=== PATIENT | male | born 1950 | race Caucasian/White ===

== ENCOUNTER 2017-09-11 17:21 | Observation (INO) | payer MEDICARE, OTHER ==
[~2017-09-11] VITALS: Ht 180.3 cm; Wt 86.7 kg
[~2017-09-11 17:21] MED LIST: ASPIRIN EC81 MG PO; BACLOFEN20 MG PO; CARAFATE1 GM PO; CARISOPRODOL350 MG PO; CLARITIN-D 241 EACH PO; COLACE100 MG PO; COMBIVENT INH14.7 GM INH; COUMADIN5 MG PO; CRESTOR20 MG PO; EFFIENT10 MG PO; ELIQUIS PO; ELIQUS; FENTANYL TD; FISH OIL + VIT1 EACH; FISH OIL 1,0001 EAC2 PO; FLOMAX0.4 MG PO; FOLIC ACID1 MG PO; IMDUR60 MG PO; KLONOPIN1 MG PO; LASIX40 MG PO; LEVAQUIN500 MG PO; LIPITOR80 MG PO; LISINOPRIL2.5 MG PO; LISINOPRIL5 MG PO; METFORMIN HCL500 M1 PO; METFORMIN HCL500 MG PO; MULTIVITAMINS1 EAC7 PO; NEURONTIN300 MG PO; NITROSTAT0.4 MG SL; OMEPRAZOLE40 MG PO; PAXIL20 MG PO; PERCOCET 10-651 EACH PO; PREDNISONE5 MG PO; PRILOSEC10 MG PO; RANEXA500 MG PO; SYMBICORT 80-10.2 GM INH; TEMAZEPAM15 MG PO; TOPROL XL25 MG PO; TOPROL XL50 MG PO; ZYRTEC10 M3 PO
[2017-09-11] MEDS ORDERED: METHYLPREDNISOLONE SOD SUCC 125 MG/2ML VIAL IV ONE (18:15)
[2017-09-11] MEDS ORDERED: LEVALBUTEROL HCL SOLN NEBU 1.25 MG/3 ML NEB INH ONE (18:15)
[2017-09-11 18:39] LABS: BASOPHILS % 0.2 % (0.0-1.0); EOSINOPHILS % 0.2 % (0.0-6.0); HEMATOCRIT 37.6 % (38.2-49.6); HEMOGLOBIN 11.7 g/dL (14.0-18.0); LYMPHOCYTES # (AUTO) 0.5 (1.0-3.2); LYMPHOCYTES % 6.3 % (18.0-39.1); MEAN CORPUSCULAR HEMOGLOBIN 26.3 pg (28-32); MEAN CORPUSCULAR HGB CONC 31.1 g/dL (31-35); MEAN CORPUSCULAR VOLUME 84.5 fL (81-99); MONOCYTES # (AUTO) 1.1 (0.2-0.8); NEUTROPHILS # (AUTO) 6.4 (2.1-6.9); NEUTROPHILS % 78.6 % (38.7-80.0); PLATELET COUNT 194 x10e3/uL (140-360); RED BLOOD COUNT 4.45 x10e6/uL (4.3-5.7); RED CELL DISTRIBUTION WIDTH 19.8 % (11.7-14.4)
[2017-09-11] MEDS ORDERED: SPIRIVA18 MCG INH (18:42)
[2017-09-11] MEDS ORDERED: NEXIUM20 MG (18:42)
--- NOTE | 2017-09-11 18:58 | Diagnostic Imaging Report ---
PROCEDURE: A single AP view of the chest. COMPARISON: Chest radiograph 06/22/2017 INDICATIONS: CHEST CONGESTION FINDINGS: Lines/tubes: None. Lungs: The lungs are well inflated. Mild central pulmonary venous congestion. Mild bibasilar atelectasis. Pleura: There is no pleural effusion or pneumothorax. Heart and mediastinum: The heart and the mediastinum are unremarkable. Bones: No acute bony abnormality. Median sternotomy wires. IMPRESSION: Central pulmonary venous congestion. Mild bibasilar atelectasis. Otherwise, no acute cardiopulmonary disease. Dictated by: James Olvera M.D. on 09/11/2017 at 19:04 Electronically approved by: James Olvera M.D. on 09/11/2017 at 19:04
[2017-09-11 19:01] LABS: ALANINE AMINOTRANSFERASE 26 IU/L (0-55); ALBUMIN/GLOBULIN RATIO 0.9 (0.8-2.0); ALKALINE PHOSPHATASE 151 IU/L (40-150); ANION GAP 13.2 mmol/L (8-16); BLOOD UREA NITROGEN 16 mg/dL (7-26); BUN/CREATININE RATIO 18 (6-25); CALCIUM 8.6 mg/dL (8.4-10.2); CARBON DIOXIDE 25 mmol/L (22-29); CHLORIDE 105 mmol/L (98-107); CREATININE, SERUM 0.88 mg/dL (0.72-1.25); EST GLOMERULAR FILTRATION RATE > 60 ML/MIN (60-); GLUCOSE 95 mg/dL (74-118); POTASSIUM 4.2 mmol/L (3.5-5.1); SODIUM 139 mmol/L (136-145)
[2017-09-11 19:18] LABS: LYMPHOCYTES % (MANUAL) 8 % (19-48); MONOCYTES % (MANUAL) 7 % (3.4-9.0); MYELOCYTES % (MANUAL) 1 % (0-0); NEUTROPHILS % (MANUAL) 84 % (40-74)
[2017-09-11 19:21] LABS: ANISOCYTOSIS SLIG; POIKILOCYTOSIS SLIGHT
[2017-09-11 19:22] LABS: PLATELET ESTIMATE ADEQUATE; PLATELET MORPHOLOGY COMMENT FEW GIANT; SCHISTOCYTES FEW
[2017-09-11] MEDS ORDERED: ACETAMINOPHEN PO PRN (19:45)
[2017-09-11] MEDS ORDERED: OXYCODONE PO PRN (19:45)
[2017-09-11] MEDS ORDERED: CEFTRIAXONE SOD 1 GM VIAL IV SCH (19:45)
[2017-09-11] MEDS ORDERED: [UNRECOGNIZED DRUG - OTHER] PO PRN (19:45)
[2017-09-11] MEDS ORDERED: SODIUM CHLORIDE FLUSH 10 ML SYR INJ PRN (19:45)
[2017-09-11] MEDS ORDERED: DEXTROSE 50% SYRINGE 50 ML IV PRN (19:45)
[2017-09-11] MEDS: IPRATROPIUM BROMIDE 0.02% 2.5 ML NEB NEB SCH (20:00)
[2017-09-11 20:13] LABS: CREATINE KINASE MB 1.7 ng/mL (0.00-5.00); TROPONIN I 0.55 ng/mL (0-0.300)
[2017-09-11] MEDS: CEFTRIAXONE SOD 1 GM/NS 50 ML 50 ML IV SCH (20:14)
[2017-09-11] MEDS: OSELTAMIVIR PHOSPHATE 75 MG CAP PO SCH (20:14)
[2017-09-11] MEDS ORDERED: ACETAMINOPHEN 325 MG TAB PO PRN (20:15)
[2017-09-11] MEDS: LISINOPRIL 2.5 MG TAB PO SCH (20:21)
[2017-09-11] MEDS ORDERED: GABAPENTIN 300 MG CAP PO SCH (21:00)
[2017-09-11 21:37] VITALS: BP 135/95
[2017-09-11] MEDS: GABAPENTIN 400 MG CAP PO SCH (21:58)
[2017-09-11] MEDS: INSULIN REGULAR, HUMAN 100 UNIT/1 ML 3ML VIAL SQ SCH (21:58)
[2017-09-11] MEDS: LORATADINE 10 MG TAB PO SCH (21:58)
[2017-09-11 23:32] VITALS: BP 135/95
[2017-09-11 23:58] VITALS: BP 133/79
[2017-09-12] MEDS: IPRATROPIUM BROMIDE 0.02% 2.5 ML NEB NEB SCH ×4 (03:04→19:49)
[2017-09-12] MEDS: LEVALBUTEROL HCL SOLN NEBU 1.25 MG/3 ML NEB INH SCH ×4 (03:04→19:49)
[2017-09-12 04:04] VITALS: BP 136/52
[2017-09-12 06:27] LABS: BASOPHILS % 0.2 % (0.0-1.0); HEMATOCRIT 35.6 % (38.2-49.6); HEMOGLOBIN 10.9 g/dL (14.0-18.0); LYMPHOCYTES # (AUTO) 0.3 (1.0-3.2); LYMPHOCYTES % 5.2 % (18.0-39.1); MEAN CORPUSCULAR HGB CONC 30.6 g/dL (31-35); MEAN CORPUSCULAR VOLUME 84.8 fL (81-99); MONOCYTES # (AUTO) 0.6 (0.2-0.8); MONOCYTES % 8.7 % (4.4-11.3); NEUTROPHILS # (AUTO) 5.6 (2.1-6.9); NEUTROPHILS % 85.1 % (38.7-80.0); PLATELET COUNT 180 x10e3/uL (140-360); RED CELL DISTRIBUTION WIDTH 19.9 % (11.7-14.4)
[2017-09-12 06:46] LABS: ANION GAP 12.3 mmol/L (8-16); BLOOD UREA NITROGEN 15 mg/dL (7-26); BUN/CREATININE RATIO 18 (6-25); CALCIUM 8.6 mg/dL (8.4-10.2); CARBON DIOXIDE 26 mmol/L (22-29); CHLORIDE 107 mmol/L (98-107); CREATINE KINASE 59 IU/L (30-200); CREATININE, SERUM 0.82 mg/dL (0.72-1.25); EST GLOMERULAR FILTRATION RATE > 60 ML/MIN (60-); GLUCOSE 202 mg/dL (74-118); POTASSIUM 4.3 mmol/L (3.5-5.1); SODIUM 141 mmol/L (136-145)
[2017-09-12] MEDS: INSULIN REGULAR, HUMAN 100 UNIT/1 ML 3ML VIAL SQ SCH ×4 (07:30→20:47)
[2017-09-12 07:31] LABS: TROPONIN I 0.315 ng/mL (0-0.300)
[2017-09-12 07:51] VITALS: BP 132/75
[2017-09-12] MEDS: TIOTROPIUM 18 MCG INH POWDER INH SCH (08:00)
[2017-09-12] MEDS: DOCUSATE SODIUM 100 MG CAP PO SCH (08:26)
[2017-09-12] MEDS: TAMSULOSIN HCL 0.4 MG CAP PO SCH (08:26)
[2017-09-12] MEDS: OMEGA 3 POLYUNSAT FATTY ACIDS 1000 MG SOFTGEL PO SCH (08:26)
[2017-09-12] MEDS: APIXABAN 5 MG TABLET PO SCH ×2 (08:26→16:59)
[2017-09-12] MEDS: MULTIVITAMINS/MINERALS TAB PO SCH (08:26)
[2017-09-12] MEDS: FOLIC ACID 1 MG TAB PO SCH (08:26)
[2017-09-12] MEDS: FUROSEMIDE 40 MG TAB PO SCH (08:26)
[2017-09-12] MEDS: ASPIRIN 81 MG ENTERIC COATED PO SCH (08:26)
[2017-09-12] MEDS: PREDNISONE 5 MG TAB PO SCH ×2 (08:27→16:59)
[2017-09-12] MEDS: LISINOPRIL 2.5 MG TAB PO SCH (08:27)
[2017-09-12] MEDS: OSELTAMIVIR PHOSPHATE 75 MG CAP PO SCH ×2 (08:27→16:59)
[2017-09-12] MEDS: PANTOPRAZOLE SOD 40 MG TABEC PO SCH (08:27)
[2017-09-12] MEDS ORDERED: NON-FORMULARY MEDICATION ([Eliquis] 5 MG) PO SCH (09:00)
[2017-09-12] MEDS ORDERED: NON-FORMULARY MEDICATION (Atorvastatin Calcium (Lipitor) 80 MG) PO SCH (09:00)
[2017-09-12] MEDS ORDERED: NON-FORMULARY MEDICATION (Omega-3 Fatty Acids/Fish Oil (Fish Oil 1,000 Mg Capsule) 1 CAP) PO SCH (09:00)
[2017-09-12] MEDS ORDERED: NITROGLYCERIN 0.4 MG SUBL SL PRN (09:45)
--- NOTE | 2017-09-12 10:22 | History and Physical ---
He is a 67-year-old male patient of mine presented to the emergency room with a complaint of shortness of breath, cough, fevers and wheezing. HISTORY OF PRESENT ILLNESS: Mr. Devon Duncan is a 67-year-old male patient with significant medical problems. The patient had presented to the emergency room with a complaint of shortness of breath, wheezing and dyspnea and chest congestion. PAST MEDICAL HISTORY: Patient has a significant medical history of COPD and diabetes mellitus, coronary artery disease, hypertension, heart disease, pneumonia and chronic back pain and back problems. ALLERGIES: . REVIEW OF SYSTEMS: Cough, wheezing, shortness of breath, and weakness. MEDICATIONS: See from the list. SOCIAL HISTORY: Patient is smoker and denies using alcohol. FAMILY HISTORY: Diabetes mellitus, hypertension. PHYSICAL EXAMINATION GENERAL: He is an elderly patient lying in bed. Not in any acute distress. VITAL SIGNS: Temperature 98.1, pulse rate 96, blood pressure 132/75, respirations 22, O2 sat 98%. HEENT EXAMINATION: Normocephalic. Atraumatic. NECK: No JVD. No lymphadenopathy. LUNGS: There is rhonchi present. HEART: S1 and S2 regularly irregular. Systolic murmur present. ABDOMEN: Soft. Bowel sounds present. NEURO EXAMINATION: No focal neurological deficits. LABORATORY EXAMINATION: Patient has a and a troponin was elevated. ADMITTING PATIENT DIAGNOSES 1. Chronic obstructive pulmonary disease exacerbation complicated by influenza. 2. History of congestive heart failure. 3. Diabetes mellitus. 4. Atrial fibrillation. 5. Chronic back pain. 6. Herniated disc. PLAN: Patient admitted with the above diagnosis. Will treat patient with IV Rocephin and Tamiflu. Will obtain pulmonary and cardiology consultations. Will give patient nebulizer treatment and treatment. Job#: [id number] HIKNLE
[2017-09-12 11:33] VITALS: BP 126/58
[2017-09-12] MEDS: METFORMIN HCL 500 MG TAB PO SCH (12:03)
[2017-09-12 15:28] LABS: CREATINE KINASE MB 1.5 ng/mL (0.00-5.00); TROPONIN I 0.322 ng/mL (0-0.300)
[2017-09-12 15:42] VITALS: BP 99/58
--- NOTE | 2017-09-12 16:17 | Consultation ---
DATE OF CONSULTATION: September 12, 2017 CARDIOLOGY CONSULTATION REQUESTING PHYSICIAN: Dr. Hali Cadena. REASON FOR CONSULTATION: Elevated troponin. HISTORY OF PRESENT ILLNESS: This is a 67-year-old male that presented with shortness of breath and wheezing. According to the patient, for the last 2 days he has been having constant shortness of breath, wheezing, and decreased activity. He saw his PCP recently, was given some steroids and antibiotic. He stated that today the shortness of breath got worse that he decided to come into the emergency room for evaluation. In the ER he was found out to be influenza A positive, and he was admitted. He has a history of CAD, open heart surgery, and multiple stent placement in the past. He also has a history of AFib and was anticoagulated with Eliquis. He denies any chest pain, any palpitation, any dizziness, diaphoresis or headache. His troponin was borderline, and EKG showed non-ST abnormalities. PAST MEDICAL HISTORY: Of CAD, AFib, hypertension, CHF, diabetes, chronic back pain, obesity, COPD. PAST SURGICAL HISTORY: Of open heart surgery and cardiac stents x4 and multiple back surgeries. FAMILY HISTORY: Positive with CAD. Daughter with flu-like symptoms also. SOCIAL HISTORY: He quit smoking and drinking 25 years ago, and he restarted again recently. MEDICATIONS: See med list. ALLERGIES: HE IS ALLERGIC TO ALBUTEROL. REVIEW OF SYSTEMS: Negative except those mentioned above. He is positive for shortness of breath and influenza A. PHYSICAL EXAMINATION VITAL SIGNS: Temperature 98, heart rate 89, blood pressure 126/58, respiration 18, oxygen saturation 94% on room air. GENERAL: He is awake, alert, and oriented x3. HEENT: Mucous membrane moist. NECK: Supple. LUNGS: Bilaterally with decreased breath sounds. CARDIOVASCULAR: S1/S2 present but irregular. ABDOMEN: Soft and obese. NEUROLOGICAL: Intact. EXTREMITIES: With trace edema. LABS: Sodium 141, potassium 4.3, chloride 107, CO2 26, BUN 15, creatinine 0.82, glucose 202. White blood cell 6.58, hemoglobin 10.9, hematocrit 35.6, platelet 180. IMPRESSION 1. Flu positive. 2. Coronary artery disease with coronary artery bypass graft and stents. 3. Congestive heart failure. 4. Borderline troponin. 5. Hypotension. 6. Diabetes. 7. Chronic obstructive pulmonary disease exacerbation. ASSESSMENT/PLAN: No complaint of chest pain. Borderline troponin could be due to the inflammatory changes. Will continue home medication. Will get an echo to assess the LV and the valve function. 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 Further cardiac workup pending clinical course. Dictated by: Lis Jensen NP Job#: [id number] EV
[2017-09-12] MEDS: NYSTATIN SUSPENSION 5 ML UDC PO SCH ×2 (17:30→20:47)
[2017-09-12] MEDS ORDERED: LOPERAMIDE HCL 2 MG CAP PO PRN (18:00)
--- NOTE | 2017-09-12 18:17 | Consultation ---
DATE OF CONSULTATION: PULMONARY CONSULTATION REQUESTING PHYSICIAN: Dr. Paramjit Cadena REASON FOR CONSULTATION: COPD. HISTORY OF PRESENT ILLNESS: Mr. Duncan is a 67-year-old man with a history of COPD, hypertension, BPH, coronary artery disease, multiple back surgeries, who presented to the hospital with complaint of shortness of breath. He states that he had been feeling more short of breath over the past week, particularly worsening over the past few days. He has been coughing with a minimally productive cough and has been having aching pain throughout his body, particularly in his back. He lives alone and denies any other sick contacts. He has had subjective fever and has had a poor appetite. Regarding his COPD, he typically uses Breo, Spiriva and Xopenex on an as-needed basis. He stopped albuterol in the past due to an episode of atrial fibrillation. He feels the Xopenex helps his breathing when he is having coughing and wheezing. He has oxygen at home, but has not been using it recently. He has been on prednisone on a chronic basis, currently on 5 mg twice daily. He does not follow regularly with a entry level chemist. He has a previous history of smoking and quit about 25 years ago, but he recently started smoking again 4 months ago. He is smoking about 1/2 pack of cigarettes on a daily basis. In the emergency department, he was found to be in respiratory distress and was given Solu-Medrol as well as Xopenex treatment. He had influenza A testing that was found to be positive. He reports he had an influenza vaccination approximately 1 month ago. REVIEW OF SYSTEMS: Positive for cough, shortness of breath, wheezing, subjective fever, fatigue, decreased appetite, weight loss, leg swelling. Otherwise, a 12-point review of systems was conducted and was found to be negative. PAST MEDICAL HISTORY 1. Hypertension. 2. Coronary artery disease. 3. Atrial fibrillation. 4. COPD. 5. Type-2 diabetes. 6. Gastroesophageal reflux. PAST SURGICAL HISTORY 1. Multiple back surgeries. 2. Coronary artery bypass surgery. FAMILY HISTORY: He reports history of lung disease in his father, who he believes had some type of occupational lung disease. SOCIAL HISTORY: He has a history of smoking for approximately 30 years, quit 25 years ago, but most recently started smoking again just 4 months ago. He is smoking about 1/2 pack of cigarettes daily. ALLERGIES: HE IS ALLERGIC TO ALBUTEROL DUE TO THE EPISODE OF ATRIAL FIBRILLATION. CURRENT MEDICATIONS: Include Eliquis, prednisone, Tamiflu, Atrovent, Xopenex, metformin, lisinopril, pantoprazole, tamsulosin, Lasix, folic acid, aspirin, Spiriva, gabapentin, loratadine, Tylenol, ceftriaxone, docusate, Percocet. PHYSICAL EXAMINATION VITAL SIGNS: Temperature 98.1 degrees Fahrenheit, heart rate 96, respiratory rate 20, oxygen saturation 98% on 2 liters. Blood pressure 132/75. GENERAL: The patient is sitting up in bed in no distress, appears comfortable. EYES: Sclerae are anicteric. Conjunctivae pink. ENT: He has white plaques on the hard palate and on the tongue. The oral mucosa is pink. NECK: Supple. No cervical lymphadenopathy. CHEST: He has mild expiratory wheezing in the lower lung rivera bilaterally. No crackles. No rhonchi. Work of breathing is normal. HEART: Mild tachycardia with regular and rhythm. S1 and S2, no murmurs. ABDOMEN: Soft, nontender, nondistended. Bowel sounds normoactive. EXTREMITIES: He has mild pitting edema in the ankles and lower leg. No cyanosis or clubbing. SKIN: No rashes or bruises. NEUROLOGIC: Pupils are equally round and reactive to light. No facial droop. No nystagmus. LABORATORY STUDIES: White blood cell count is 6.5, hemoglobin 10.9, platelets 180. Sodium 141, potassium 4.3, chloride 107, bicarbonate 26, BUN 15, creatinine 0.8, glucose 202, calcium 8.6. CK 59, CK-MB 1.5, troponin I 0.3. Influenza A rapid testing positive. IMAGING: There is a 1-view chest x-ray which shows mild pulmonary venous congestion, no consolidations, no effusions. IMPRESSION: Mr. Duncan is a 67-year-old man with history of hypertension, diabetes, chronic obstructive pulmonary disease, atrial fibrillation, who presented to the hospital with chronic obstructive pulmonary disease exacerbation with influenza A infection. He has mild evidence of congestive heart failure as well with pitting edema in the legs. He has oral thrush, which may be related to inhaled corticosteroid use. PLAN 1. The patient is currently on prednisone 5 mg daily. In the setting of active COPD exacerbation, I will increase the steroids to Solu-Medrol 40 mg twice daily, and we can taper as his respiratory status improves. 2. He is on Breo and Spiriva at home for his COPD, and we can use Symbicort in place of Breo in the hospital. I instructed the patient to rinse his mouth after using the inhaled corticosteroid to help prevention of thrush. We will start him on nystatin swish and swallow for the thrush he has currently. 3. He is on Lasix daily for peripheral edema which can be continued. 4. I counseled the patient on the need for smoking cessation. He declines a nicotine patch in the hospital and states that he would like to quit cold turkey without the help of any assistive medications. 5. He is on Eliquis for atrial fibrillation, which will provide DVT prophylaxis as well. Thank you very much for the consultation. Will continue to follow Mr. Duncan with you. I will be happy to see him in clinic as well for further management of his COPD. Job#: [id number]
[2017-09-12] MEDS: BUDESONIDE/FORMOTEROL 160/4.5MCG INHALER INH SCH (19:49)
[2017-09-12 20:00] VITALS: BP 100/55
[2017-09-12] MEDS: CEFTRIAXONE SOD 1 GM/NS 50 ML 50 ML IV SCH (20:15)
[2017-09-12] MEDS: METHYLPREDNISOLONE SOD SUCC 40 MG/ML VIAL IV SCH (20:46)
[2017-09-12] MEDS: LORATADINE 10 MG TAB PO SCH (20:46)
[2017-09-12] MEDS: ATORVASTATIN 40 MG TAB PO SCH (20:47)
[2017-09-12] MEDS: GABAPENTIN 400 MG CAP PO SCH (20:47)
[2017-09-12] MEDS ORDERED: SODIUM CHLORIDE 0.9% 250ML 250 ML ONE (20:56)
[2017-09-12] MEDS: OXYCODONE/ACETAMINOPHEN 5-325 1 EACH TABLET PO PRN (22:45)
[2017-09-13] VITALS: BP 97/55
[2017-09-13] MEDS: LEVALBUTEROL HCL SOLN NEBU 1.25 MG/3 ML NEB INH SCH ×4 (02:18→19:39)
[2017-09-13] MEDS: IPRATROPIUM BROMIDE 0.02% 2.5 ML NEB NEB SCH ×4 (02:18→19:39)
[2017-09-13 04:00] VITALS: BP 108/64
[2017-09-13] MEDS: NYSTATIN SUSPENSION 5 ML UDC PO SCH ×5 (05:04→20:55)
[2017-09-13] MEDS: TIOTROPIUM 18 MCG INH POWDER INH SCH (06:00)
[2017-09-13] MEDS: BUDESONIDE/FORMOTEROL 160/4.5MCG INHALER INH SCH ×2 (07:00→19:39)
[2017-09-13 07:23] LABS: HEMATOCRIT 35.2 % (38.2-49.6); HEMOGLOBIN 10.8 g/dL (14.0-18.0); LYMPHOCYTES # (AUTO) 0.4 (1.0-3.2); LYMPHOCYTES % 4.9 % (18.0-39.1); MEAN CORPUSCULAR HEMOGLOBIN 26.3 pg (28-32); MEAN CORPUSCULAR HGB CONC 30.7 g/dL (31-35); MEAN CORPUSCULAR VOLUME 85.6 fL (81-99); MONOCYTES # (AUTO) 0.5 (0.2-0.8); MONOCYTES % 7.1 % (4.4-11.3); NEUTROPHILS # (AUTO) 6.7 (2.1-6.9); NEUTROPHILS % 87.3 % (38.7-80.0); PLATELET COUNT 193 x10e3/uL (140-360); RED BLOOD COUNT 4.11 x10e6/uL (4.3-5.7); RED CELL DISTRIBUTION WIDTH 19.9 % (11.7-14.4)
[2017-09-13] MEDS: INSULIN REGULAR, HUMAN 100 UNIT/1 ML 3ML VIAL SQ SCH ×4 (07:30→20:56)
[2017-09-13 08:00] VITALS: BP 123/78
[2017-09-13] MEDS: METFORMIN HCL 500 MG TAB PO SCH (08:00)
[2017-09-13] MEDS: DOCUSATE SODIUM 100 MG CAP PO SCH (08:09)
[2017-09-13] MEDS: MULTIVITAMINS/MINERALS TAB PO SCH (08:27)
[2017-09-13] MEDS: FUROSEMIDE 40 MG TAB PO SCH (08:27)
[2017-09-13] MEDS: OMEGA 3 POLYUNSAT FATTY ACIDS 1000 MG SOFTGEL PO SCH (08:27)
[2017-09-13] MEDS: METHYLPREDNISOLONE SOD SUCC 40 MG/ML VIAL IV SCH ×2 (08:27→20:55)
[2017-09-13] MEDS: APIXABAN 5 MG TABLET PO SCH ×2 (08:27→17:00)
[2017-09-13] MEDS: TAMSULOSIN HCL 0.4 MG CAP PO SCH (08:27)
[2017-09-13] MEDS: FOLIC ACID 1 MG TAB PO SCH (08:27)
[2017-09-13] MEDS: ASPIRIN 81 MG ENTERIC COATED PO SCH (08:27)
[2017-09-13] MEDS: LISINOPRIL 2.5 MG TAB PO SCH (08:28)
[2017-09-13] MEDS: OSELTAMIVIR PHOSPHATE 75 MG CAP PO SCH ×2 (08:29→17:00)
[2017-09-13] MEDS: PANTOPRAZOLE SOD 40 MG TABEC PO SCH (08:29)
[2017-09-13 09:09] LABS: ALANINE AMINOTRANSFERASE 25 IU/L (0-55); ALBUMIN 2.7 g/dL (3.5-5.0); ALBUMIN/GLOBULIN RATIO 0.9 (0.8-2.0); ALKALINE PHOSPHATASE 135 IU/L (40-150); ANION GAP 15.1 mmol/L (8-16); BLOOD UREA NITROGEN 19 mg/dL (7-26); BUN/CREATININE RATIO 21 (6-25); CALCIUM 8.3 mg/dL (8.4-10.2); CARBON DIOXIDE 26 mmol/L (22-29); CHLORIDE 106 mmol/L (98-107); CREATININE, SERUM 0.92 mg/dL (0.72-1.25); EST GLOMERULAR FILTRATION RATE > 60 ML/MIN (60-); GLUCOSE 228 mg/dL (74-118); POTASSIUM 4.1 mmol/L (3.5-5.1); SODIUM 143 mmol/L (136-145)
[2017-09-13 10:32] LABS: ANISOCYTOSIS SLIGHT; BAND NEUTROPHILS % (MANUAL) 1 %; LYMPHOCYTES % (MANUAL) 4 % (19-48); MONOCYTES % (MANUAL) 8 % (3.4-9.0); NEUTROPHILS % (MANUAL) 87 % (40-74); PLATELET ESTIMATE ADEQUATE; PLATELET MORPHOLOGY COMMENT NORMAL; RBC MORPHOLOGY COMMENT ABNORMAL
[2017-09-13 11:52] VITALS: BP 134/77
[2017-09-13 15:51] VITALS: BP 134/72
[2017-09-13] MEDS: CEFTRIAXONE SOD 1 GM/NS 50 ML 50 ML IV SCH (19:45)
[2017-09-13 20:00] VITALS: BP 126/72
[2017-09-13] MEDS: GABAPENTIN 400 MG CAP PO SCH (20:55)
[2017-09-13] MEDS: LORATADINE 10 MG TAB PO SCH (20:55)
[2017-09-13] MEDS: ATORVASTATIN 40 MG TAB PO SCH (20:55)
[2017-09-13] MEDS: OXYCODONE/ACETAMINOPHEN 5-325 1 EACH TABLET PO PRN (22:32)
[2017-09-14] MEDS: LEVALBUTEROL HCL SOLN NEBU 1.25 MG/3 ML NEB INH SCH (01:10)
[2017-09-14] MEDS: IPRATROPIUM BROMIDE 0.02% 2.5 ML NEB NEB SCH (01:10)
[2017-09-14] MEDS: NYSTATIN SUSPENSION 5 ML UDC PO SCH ×3 (04:51→13:29)
[2017-09-14 07:44] LABS: ALANINE AMINOTRANSFERASE 28 IU/L (0-55); ALBUMIN 2.7 g/dL (3.5-5.0); ALBUMIN/GLOBULIN RATIO 0.9 (0.8-2.0); ALKALINE PHOSPHATASE 129 IU/L (40-150); ANION GAP 13.9 mmol/L (8-16); BLOOD UREA NITROGEN 22 mg/dL (7-26); BUN/CREATININE RATIO 26 (6-25); CALCIUM 8.4 mg/dL (8.4-10.2); CARBON DIOXIDE 27 mmol/L (22-29); CHLORIDE 106 mmol/L (98-107); CHOLESTEROL 117 MD/DL (0-199); CREATININE, SERUM 0.85 mg/dL (0.72-1.25); EST GLOMERULAR FILTRATION RATE > 60 ML/MIN (60-); GLUCOSE 171 mg/dL (74-118); HDL CHOLESTEROL 39 MG/DL (40-60); LDL CHOLESTEROL 59 MG/DL (60-130); POTASSIUM 3.9 mmol/L (3.5-5.1); SODIUM 143 mmol/L (136-145); TRIGLYCERIDES 94 MG/DL (0-149)
[2017-09-14 08:00] VITALS: BP 159/71
[2017-09-14 08:48] LABS: BASOPHILS % 0.1 % (0.0-1.0); HEMATOCRIT 35.9 % (38.2-49.6); HEMOGLOBIN 11.3 g/dL (14.0-18.0); LYMPHOCYTES # (AUTO) 0.8 (1.0-3.2); LYMPHOCYTES % 9.5 % (18.0-39.1); MEAN CORPUSCULAR HEMOGLOBIN 26.2 pg (28-32); MEAN CORPUSCULAR HGB CONC 31.5 g/dL (31-35); MEAN CORPUSCULAR VOLUME 83.3 fL (81-99); MONOCYTES # (AUTO) 0.7 (0.2-0.8); NEUTROPHILS # (AUTO) 6.4 (2.1-6.9); NEUTROPHILS % 80.9 % (38.7-80.0); PLATELET COUNT 211 x10e3/uL (140-360); RED BLOOD COUNT 4.31 x10e6/uL (4.3-5.7); RED CELL DISTRIBUTION WIDTH 19.5 % (11.7-14.4)
[2017-09-14] MEDS: LISINOPRIL 2.5 MG TAB PO SCH ×2 (09:00→09:03)
[2017-09-14] MEDS: FUROSEMIDE 40 MG TAB PO SCH ×2 (09:00→09:02)
[2017-09-14] MEDS: DOCUSATE SODIUM 100 MG CAP PO SCH (09:00)
[2017-09-14] MEDS: ASPIRIN 81 MG ENTERIC COATED PO SCH (09:01)
[2017-09-14] MEDS: METHYLPREDNISOLONE SOD SUCC 40 MG/ML VIAL IV SCH (09:01)
[2017-09-14] MEDS: METFORMIN HCL 500 MG TAB PO SCH (09:01)
[2017-09-14] MEDS: APIXABAN 5 MG TABLET PO SCH (09:01)
[2017-09-14] MEDS: OMEGA 3 POLYUNSAT FATTY ACIDS 1000 MG SOFTGEL PO SCH (09:02)
[2017-09-14] MEDS: TAMSULOSIN HCL 0.4 MG CAP PO SCH (09:02)
[2017-09-14] MEDS: FOLIC ACID 1 MG TAB PO SCH (09:02)
[2017-09-14] MEDS: MULTIVITAMINS/MINERALS TAB PO SCH (09:02)
[2017-09-14] MEDS: OSELTAMIVIR PHOSPHATE 75 MG CAP PO SCH (09:03)
[2017-09-14] MEDS: PANTOPRAZOLE SOD 40 MG TABEC PO SCH (09:03)
[2017-09-14] MEDS: INSULIN REGULAR, HUMAN 100 UNIT/1 ML 3ML VIAL SQ SCH ×2 (09:22→13:27)
== END 2017-09-14 13:35 | disposition home or self-care (01) ==
LOC: ER 17:21 → ERHOLD 19:54 → IMCU 20:40 → MED/SURG2 09-12 17:20
PROVIDERS: ADMIT Internal Medicine; ATTEND Internal Medicine
DX: J09.X2 Influenza due to identified novel influenza A virus with other respiratory manifestations (principal); J44.1 Chronic obstructive pulmonary disease with (acute) exacerbation; I50.9 Heart failure, unspecified; E11.9 Type 2 diabetes mellitus without complications; I48.91 Unspecified atrial fibrillation; B37.0 Candidal stomatitis; I25.10 Atherosclerotic heart disease of native coronary artery without angina pectoris; Z95.1 Presence of aortocoronary bypass graft; Z95.5 Presence of coronary angioplasty implant and graft; G89.29 Other chronic pain; F17.210 Nicotine dependence, cigarettes, uncomplicated
CPT/HCPCS: 36415 ×4; 71010; 80048; 80053 ×3; 80061; 82550 ×2; 82553 ×2; 82948 ×4; 83036; 83605; 83880; 84484 ×2; 85025 ×4; 87040; 87400; 93005; 94640 ×7; 99284; G0378 ×4; J0696 ×3; J2920 ×3; J2930; J7050; J7512

== ENCOUNTER 2017-12-22 16:00 | Inpatient (IN) | payer MEDICARE, OTHER ==
[~2017-12-22] VITALS: Ht 177.8 cm; Wt 86.6 kg
[~2017-12-22 16:00] MED LIST changes: +NEXIUM20 MG; +SPIRIVA18 MCG INH
--- OUTSIDE RECORDS SUMMARY | 2017-12-22 16:04 | XMS REPORT ---
Author Author [facility] Address Unknown Phone Unavailable Care Team Providers [employer] Name Role Phone BEATRIS WINSTON Unavailable Unavailable MENDEZ JACKMAN Unavailable Unavailable YARON AGUILAR Unavailable Unavailable Problems This patient has no known problems. Allergies, Adverse Reactions, Alerts This patient has no known allergies or adverse reactions. Medications This patient has no known medications. Results Test Description Test Time Test Comments Text Results Atomic Results Result Comments CHEST SINGLE (NOT PORTABLE) [place] [address] Patient Name: LAKEISHA DIETZ JR MR #: [id number] : 1950 Age/Sex: 67/M Req #: [id number] Adm Physician: Ordered by: BEATRIS WINSTON MD Report #: [id number] Location: ER Room/Bed: ___ Procedure: [id number] DX/CHEST SINGLE (NOT PORTABLE) Exam Date: 09/28/17 Exam Time: 2024 REPORT STATUS: Signed EXAM : CHEST SINGLE (NOT PORTABLE), AP 1 view DATE: 09/28/2017 7:56 PM Time stamp on exam: 2017 hours INDICATION: Shortness of breath COMPARISON: AP view of the chest August 30, 2016 FINDINGS: LINES/TUBES: None LUNGS: No consolidations or edema. Emphysematous changes and bibasilar atelectasis. PLEURA: No effusions or pneumothorax. HEART AND MEDIASTINUM: Normal size and contour. Stable appearance of median sternotomy wires. Coronary artery stent. BONES AND SOFT TISSUES: No acute findings. IMPRESSION: No acute thoracic abnormality. Signed by: Dr. Hemant Everett M.D. on 09/28/2017 9:25 PM Dictated By: HEMANT EVERETT MD 24 Transcribed By: YANIRA on 2124 COPY TO: BEATRIS WINSTON MD CHEST SINGLE (PORTABLE) [place] [address] Patient Name: LAKEISHA DIETZ JR MR #: [id number] : 1950 Age/Sex: 67/M Req #: [id number] Adm Physician: Ordered by: SAUNDRA MARTIN Report #: [id number] Location: ER Room/Bed: _ Procedure: [id number] DX/CHEST SINGLE (PORTABLE) Exam Date: 09/11/17 Exam Time: 1840 REPORT STATUS: Signed PROCEDURE: A single AP view of the chest. COMPARISON: Chest radiograph 06/22/2017 INDICATIONS: CHEST CONGESTION FINDINGS: Lines/tubes: None. Lungs: The lungs are well inflated. Mild central pulmonary venous congestion. Mild bibasilar atelectasis. Pleura: There is no pleural effusion or pneumothorax. Heart and mediastinum: The heart and the mediastinum are unremarkable. Bones: No acute bony abnormality. Median sternotomy wires. IMPRESSION: Central pulmonary venous congestion. Mild bibasilar atelectasis. Otherwise, no acute cardiopulmonary disease. Dictated by: James Rice M.D. on 09/11/2017 at 19:04 Electronically approved by: James Rice M.D. on 09/11/2017 at 19:04 Dictated By: JAMES RICE MD 03 Transcribed By: CARLOS on 09/11/171903 COPY TO: SAUNDRA MARTIN ELBOW RIGHT COMPLETE [facility] [address] [place] [address] Patient Name: LAKEISHA DIETZ JR MR #: [id number] : 1950 Age/Sex: 67/M Req #: [id number] Adm Physician: Ordered by: YARON AGUILAR MD Report #: [id number] Location: ER Room/Bed: Procedure: [id number] DX/ELBOW RIGHT COMPLETE Exam Date: 08/30/17 Exam Time: 2039 REPORT STATUS: Signed ELBOW RIGHT COMPLETE HISTORY: Status post fall COMPARISON: None FINDINGS: Bones: No displaced fracture. Osseous alignment is within normal limits. Joints: Mild degenerative changes of the right elbow joints with marginal osteophytosis and subchondral sclerosis. Soft tissues: Posterior elbow and forearm soft tissue swelling compatible with hematoma. IMPRESSION: 1. No acute osseous abnormality. 2. Prominent posterior right elbow hematoma. Signed by: Dr. Raghavendra Triplett M.D. on 08/30/2017 9:06 PM Dictated By: RAGHAVENDRA SESAY MD 05 Transcribed By: YANIRA on 08/30/172105 COPY TO: YARON AGUILAR MD SHOULDER RIGHT [place] [address] Patient Name: LAKEISHA DIETZ JR MR #: [id number] : 1950 Age/Sex: 67/M Req #: [id number] Adm Physician: Ordered by: YARON AGUILAR MD Report #: [id number] Location: Room/Bed: Procedure: [id number] DX/SHOULDER RIGHT COMPLETE Exam Date: 08/30/17 Exam Time: 1900 REPORT STATUS: Signed EXAMINATION: Right shoulder series. CLINICAL HISTORY: Status post fall. COMPARISON : CT chest 08/30/2016, chest 2 views 07/26/2016 Discussion: The osseous structures are intact without evidence of acute, displaced fracture or dislocation. No osteolytic or osteoblastic lesions. There is no evidence of a.c. separation. 5 mm bony fragment projecting in the glenohumeral space is well corticated and stable since prior CT and chest x-ray 2015, likely representing a loose body. Degenerative changes in the glenohumeral joint. The soft tissues are normal. IMPRESSION: 1. No acute abnormalities. 2. 5 mm corticated bony fragment projecting in the glenohumeral space likely represents a loose body and is stable since CT dated 08/30/2016 and prior chest film 07/26/2016 Signed by: Dr. Sudhir Robledo M.D. on 08/30 8:04 PM Dictated By: SUDHIR ROBLEDO MD 03 Transcribed By: YANIRA on 08/30/172003 COPY TO: YARON AGUILAR MD CHEST SINGLE (NOT PORTABLE) [place] [address] Patient Name: LAKEISHA DIETZ JR MR #: [id number] : 1950 Age/Sex: 67/M Req #: [id number] Adm Physician: Ordered by: MENEDZ JACKMAN MD Report #: [id number] Location: ER Room/Bed: Procedure: [id number] DX/CHEST SINGLE (NOT PORTABLE) Exam Date: 06/22/17 Exam Time: 1450 REPORT STATUS: Signed PROCEDURE: A single AP view of the chest. COMPARISON: 08/30/16 INDICATIONS: weakness x 5 days FINDINGS: Lines/tubes: None. Lungs: Mild central vascular congestion. Bibasilar subsegmental atelectasis. Pleura : There is no pleural effusion or pneumothorax. Heart and mediastinum: The heart and the mediastinum are unremarkable. Median sternotomy wires. Bones: No acute bony abnormality. IMPRESSION: Mild central vascular congestion. No definite focal consolidation. Bibasilar subsegmental atelectasis. Dictated by: Niranjan Carlson M.D. on 06/22/2017 at 15:14 Electronically approved by: Niranjan Carlson M.D. on 06/22/2017 at 15:14 Dictated By: NIRANJAN CARLSON MD 1514 Transcribed By: CARLOS on 06/22/17 1514 COPY TO: MENDEZ JACKMAN MD
[2017-12-22 16:16] LABS: BASOPHILS % 0.3 % (0.0-1.0); EOSINOPHILS # (AUTO) 0.1 (0.0-0.4); EOSINOPHILS % 0.8 % (0.0-6.0); HEMATOCRIT 42.7 % (38.2-49.6); HEMOGLOBIN 13.4 g/dL (14.0-18.0); LYMPHOCYTES # (AUTO) 0.9 (1.0-3.2); LYMPHOCYTES % 8.1 % (18.0-39.1); MEAN CORPUSCULAR HEMOGLOBIN 28.2 pg (28-32); MEAN CORPUSCULAR HGB CONC 31.4 g/dL (31-35); MEAN CORPUSCULAR VOLUME 89.7 fL (81-99); MONOCYTES # (AUTO) 0.8 (0.2-0.8); MONOCYTES % 7.4 % (4.4-11.3); NEUTROPHILS # (AUTO) 9.2 (2.1-6.9); NEUTROPHILS % 82.8 % (38.7-80.0); PLATELET COUNT 198 x10e3/uL (140-360); RED BLOOD COUNT 4.76 x10e6/uL (4.3-5.7); RED CELL DISTRIBUTION WIDTH 20.4 % (11.7-14.4)
[2017-12-22] MEDS ORDERED: ASPIRIN 81 MG CHEW TAB PO NR ×2 (16:30→21:00)
[2017-12-22 16:35] LABS: INR 1.33; PROTHROMBIN TIME 15.5 seconds (11.9-14.5)
[2017-12-22 16:36] LABS: PARTIAL THROMBOPLASTIN TIME 32.5 seconds (23.8-35.5)
[2017-12-22 16:46] LABS: ALANINE AMINOTRANSFERASE 31 IU/L (0-55); ALBUMIN 3.2 g/dL (3.5-5.0); ALBUMIN/GLOBULIN RATIO 0.9 (0.8-2.0); ALKALINE PHOSPHATASE 168 IU/L (40-150); ANION GAP 17.9 mmol/L (8-16); BLOOD UREA NITROGEN 17 mg/dL (7-26); BUN/CREATININE RATIO 15 (6-25); CALCIUM 9.1 mg/dL (8.4-10.2); CARBON DIOXIDE 21 mmol/L (22-29); CHLORIDE 109 mmol/L (98-107); CREATINE KINASE 85 IU/L (30-200); EST GLOMERULAR FILTRATION RATE > 60 ML/MIN (60-); GLUCOSE 133 mg/dL (74-118); LIPASE 17 U/L (8-78); POTASSIUM 4.9 mmol/L (3.5-5.1); SODIUM 143 mmol/L (136-145)
[2017-12-22 17:05] LABS: THYROID STIMULATING HORMONE 1.725 uIU/mL (0.350-4.940)
--- NOTE | 2017-12-22 18:13 | Diagnostic Imaging Report ---
EXAMINATION: CHEST SINGLE (PORTABLE) INDICATION: \S\ERMD ORDER \S\[id number] \S\1630 \S\Y COMPARISON: Chest radiograph from 09/28/2017 FINDINGS: AP view TUBES and LINES: None. LUNGS: Lungs are well inflated. Interval development of diffuse bilateral lower lobes interstitial and alveolar airspace opacities. PLEURA: No pleural effusion or pneumothorax. HEART AND MEDIASTINUM: Stable mild enlargement of the cardiac silhouette. BONES AND SOFT TISSUES: Intact median sternotomy wires. Soft tissues are unremarkable. UPPER ABDOMEN: No free air under the diaphragm. IMPRESSION: Bilateral pulmonary edema. Aspiration or pneumonia in the right lower lobe, have a similar appearance. Continue to follow-up. Signed by: Dr. Cristiane Hung M.D. on 12/22/2017 6:09 PM
[2017-12-22] MEDS ORDERED: FUROSEMIDE INJ 10 MG/ML 2 ML VIAL IV NR (18:45)
[2017-12-22] MEDS ORDERED: NITROGLYCERIN 0.4 MG SUBL SL PRN (19:15)
[2017-12-22] MEDS: METOPROLOL TARTRATE 25 MG TAB PO SCH (21:20)
[2017-12-22] MEDS: ENOXAPARIN SODIUM INJ 100 MG/ML SYR SC SCH (21:26)
[2017-12-22] MEDS ORDERED: SPIRIVA18 MCG INH (21:26)
[2017-12-22] MEDS ORDERED: XOPENEX HFA15 GM (21:26)
[2017-12-22] MEDS: FAMOTIDINE 20 MG TAB PO SCH (21:57)
[2017-12-22] MEDS ORDERED: PERCOCET 10-321 EACH PO (22:26)
[2017-12-23] VITALS (67 sets, daily range): BP systolic 74–118; BP diastolic 46–92
[2017-12-23] MEDS ORDERED: SODIUM CHLORIDE 0.9% 250ML 250 ML IV ONE (01:15)
[2017-12-23] MEDS: SODIUM CHLORIDE FLUSH 10 ML SYR INJ PRN ×2 (01:15)
[2017-12-23] MEDS ORDERED: SODIUM CHLORIDE 0.9% 250ML 250 ML ONE (01:18)
[2017-12-23 01:49] LABS: CREATINE KINASE MB 6.3 ng/mL (0-5.0)
[2017-12-23 06:21] LABS: BASOPHILS % 0.5 % (0.0-1.0); EOSINOPHILS # (AUTO) 0.2 (0.0-0.4); EOSINOPHILS % 2.4 % (0.0-6.0); HEMATOCRIT 38.6 % (38.2-49.6); HEMOGLOBIN 11.9 g/dL (14.0-18.0); LYMPHOCYTES # (AUTO) 1.4 (1.0-3.2); LYMPHOCYTES % 17.2 % (18.0-39.1); MEAN CORPUSCULAR HEMOGLOBIN 27.5 pg (28-32); MEAN CORPUSCULAR HGB CONC 30.8 g/dL (31-35); MEAN CORPUSCULAR VOLUME 89.1 fL (81-99); MONOCYTES # (AUTO) 0.9 (0.2-0.8); MONOCYTES % 11.2 % (4.4-11.3); NEUTROPHILS # (AUTO) 5.4 (2.1-6.9); NEUTROPHILS % 68.1 % (38.7-80.0); PLATELET COUNT 188 x10e3/uL (140-360); RED BLOOD COUNT 4.33 x10e6/uL (4.3-5.7); RED CELL DISTRIBUTION WIDTH 20.1 % (11.7-14.4)
[2017-12-23 06:47] LABS: ANION GAP 14.5 mmol/L (8-16); BLOOD UREA NITROGEN 17 mg/dL (7-26); BUN/CREATININE RATIO 21 (6-25); CALCIUM 8.6 mg/dL (8.4-10.2); CARBON DIOXIDE 23 mmol/L (22-29); CHLORIDE 108 mmol/L (98-107); CHOL/HDL RATIO 3.4 (3.9-4.7); CHOLESTEROL 105 MD/DL (0-199); CREATININE, SERUM 0.81 mg/dL (0.72-1.25); EST GLOMERULAR FILTRATION RATE > 60 ML/MIN (60-); GLUCOSE 73 mg/dL (74-118); HDL CHOLESTEROL 31 MG/DL (40-60); LDL CHOLESTEROL 51 MG/DL (60-130); SODIUM 142 mmol/L (136-145); TRIGLYCERIDES 115 MG/DL (0-149)
[2017-12-23 06:51] LABS: POTASSIUM 3.5 mmol/L (3.5-5.1)
[2017-12-23 07:06] LABS: CREATINE KINASE MB 5.3 ng/mL (0-5.0)
[2017-12-23] MEDS: MORPHINE SULFATE 2 MG/ML SYR IV PRN ×4 (07:45→21:15)
[2017-12-23] MEDS: METOPROLOL TARTRATE 25 MG TAB PO SCH ×2 (09:00→21:15)
[2017-12-23] MEDS: NICOTINE 21 MG/EA PATCH TOP SCH (09:26)
[2017-12-23] MEDS: ENOXAPARIN SODIUM INJ 100 MG/ML SYR SC SCH ×2 (09:26→21:15)
[2017-12-23] MEDS: FAMOTIDINE 20 MG TAB PO SCH ×2 (09:26→21:15)
[2017-12-23] MEDS: ASPIRIN 81 MG ENTERIC COATED PO SCH (09:26)
[2017-12-23] MEDS ORDERED: ACETAMINOPHEN 325 MG TAB PO PRN (11:00)
[2017-12-23] MEDS ORDERED: DOCUSATE SODIUM 100 MG CAP PO PRN (11:00)
[2017-12-23] MEDS ORDERED: CEFTRIAXONE SOD 1 GM VIAL IV SCH (11:00)
[2017-12-23] MEDS ORDERED: NITROGLYCERIN 0.4 MG SUBL SL PRN (11:00)
[2017-12-23] MEDS ORDERED: ONDANSETRON HCL INJ 2 MG/ML VIAL IV PRN (11:00)
[2017-12-23] MEDS ORDERED: AZITHROMYCIN 500MG/NS 250 ML 250 ML IV SCH (11:30)
[2017-12-23] MEDS ORDERED: HYDRALAZINE HCL 20 MG/ML VIAL IV PRN (12:45)
[2017-12-23] MEDS ORDERED: METOPROLOL TARTRATE INJ 1 MG/ML VIAL IV PRN (12:45)
--- NOTE | 2017-12-23 12:47 | History and Physical ---
PATIENT LOCATION: Room 192. PRESENTING COMPLAINT: Substernal chest pain for 1 day with brief loss of consciousness yesterday evening. HISTORY OF PRESENT ILLNESS: This 67-year-old male with past history of CAD, status post CABG and COPD was admitted from ER. Patient was brought to ER by his daughter from home. Patient was found by his daughter at home. He took some energy drink as per report following which he was feeling chest pain. His daughter found the patient on the floor and was complaining of chest pain. Patient denied any palpitations. He complained of mild shortness of breath along with this chest pain. He had also perfuse perspiration. He did not have any nausea or vomiting. Patient was brought by his daughter in her car to the hospital. On the way, patient had brief loss of consciousness as per daughter's statement. Patient's blood pressure was running high at home. He took an additional dose of metoprolol and nitroglycerin at home prior to coming to the ER. Patient's pain was compressive in nature, 10/10 in intensity. He was on home oxygen p.r.n. as per his statement. He was using oxygen recently frequently for the last few days as per his statement. Patient denied any fever, cough, abdominal pain, or numbness or weakness of upper extremities. He follows up with his metal dresser at [facility] [place]. REVIEW OF SYSTEMS CONSTITUTIONAL: No fever, chills, or rigor. ENT: No nasal congestion. No sore throat. No earache. CARDIOVASCULAR: Chest pain and shortness of breath as per HPI. No palpitation. PULMONARY: Shortness of breath. No cough. No hemoptysis. GI: No abdominal pain, nausea, vomiting, passage of blood with stool or black stool. : No dysuria. No hematuria. MUSCULOSKELETAL, SKIN, LYMPHORETICULAR: Patient has chronic low back pain. No joint swelling. No skin rash. No swollen glands. NEUROLOGICAL: Patient had brief loss of consciousness on the way to the hospital as per HPI. No headache. No seizure. HISTORY OF PAST MEDICAL ILLNESS: CAD, status post CABG, hypertension, hyperlipidemia, COPD on home oxygen p.r.n., diabetes mellitus type 2, lumbar spondylosis, CHF, paroxysmal atrial fibrillation, and influenza in August 2017 as per electronic medical record. HISTORY OF PAST SURGERY: CABG followed by coronary artery stenting x4 and back surgery. ALLERGIES: ALBUTEROL, CAUSING RACING OF THE HEART. HOME MEDICATIONS: As per med reconciliation sheet. SOCIAL HISTORY: Patient lives at home independently. He is in contact with the daughter. Daughter is at bedside now. HABITS: Patient has a long history of smoking tobacco. He is cutting down recently as per his statement. Denies alcohol or other substance abuse history. FAMILY HISTORY: Father had COPD. PHYSICAL EXAMINATION VITALS: BP 130/93 at presentation, came down to 94/60 last night, pulse 116 at presentation, now 75, respirations 16-20 per minute, and SpO2 79-97% on 2 liters of oxygen via nasal cannula. GENERAL: Alert, sitting in chair at bedside now. HEENT: NC, AT. No pallor. No icterus. Pupils equally reacting. Oral mucosa moist. NECK: No JVD. No carotid bruits. No lymphadenopathy. No thyromegaly. HEART: S1 and S2 regular. No murmur. LUNGS: Air entry equal on both sides. Few fine basilar crackles present. No rhonchi. ABDOMEN: Soft and nontender. No palpable mass. Bowel sounds active in all quadrants. EXTREMITIES: No edema, cyanosis, or clubbing. NEUROLOGICAL: Motor grossly equal on both sides. LAB DATA: CBC: WBC 11.08, hemoglobin 13, hematocrit 42, platelet 198, neutrophil 82, lymphocytes 8, MCV 89, and RDW 20. PT 15.5, INR 1.33, and PTT 32.5. Chemistry panel: Sodium 143, potassium 4.9, chloride 109, CO2 21, anion gap 13, BUN 17, creatinine 1.1, glucose 133, lactic acid 14.3 within normal limits, calcium 9.1, and magnesium 2.0. Total bilirubin 0.7, AST 40, ALT 31, and alk phos 168. 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 BNP 1424.5. Total protein 6.6, albumin 2.2, and globulin 3.4. Lipase 17. TSH 1.72. Total cholesterol 105, LDL 51, HDL 31, and triglycerides 115. Urinalysis pending. RADIOLOGICAL DATA: X-ray chest, single view, bilateral pulmonary edema, aspiration or pneumonia in the right lower lobe with similar appearance, intact median sternotomy white, soft tissues unremarkable, no free air under the diaphragm. EKG, sinus tachycardia rate of 117 beats per minute, incomplete left bundle branch block, ST depression in anterolateral leads, and intervals within normal limit. ASSESSMENT AND PLAN 1. Substernal chest pain with elevated troponin I from 2nd and 3rd sets due to non-ST elevation LA: Patient is admitted in ICU. He is status post CABG. His last cardiac cath was done about 2 years ago by his regular metal dresser at [facility] as per his statement. We would continue the patient on aspirin and Lovenox as started from ER. We would follow with cardiology. Dr. Ramirez is consulted from ER who is familiar with the patient from the past. 2. CAD, status post CABG: Continue aspirin. 3. CHF, by history: BNP is elevated. Continue the patient on IV Lasix as tolerated. 4. Low systolic blood pressure: Patient's urine output is normal. Monitor. Continue cardiac monitoring. Patient got IV fluids yesterday. If needed, we would give him IV fluids. If needed, he would need pressors. We would follow metal dresser's recommendations. 5. Diabetes mellitus type 2: Continue his regular medications. Continue sliding scale insulin. 6. Hypertension: His systolic blood pressure is low now. We would monitor and optimize BP medication following the parameter. 7. Paroxysmal atrial fibrillation: Patient was on Eliquis. He is now on Lovenox. We would continue Lovenox. Hold Eliquis for now. 8. Hyperlipidemia: Continue the patient on statin. 1. COPD, by history: Continue patient on his regular medications and oxygen via nasal cannula as needed. Continue the patient on his nebulizer treatment p.r.n. 2. GI prophylaxis: Continue patient on famotidine. 3. DVT prophylaxis: Patient is already on Lovenox therapeutic dose for non-ST elevation LA. 4. Discharge plan would depend upon patient's response to treatment. Prognosis is guarded in view of patient's multiple comorbidities. Job#: [id number] [employer] [place]
[2017-12-23] MEDS: AMIODARONE HCL 200 MG TAB PO SCH ×2 (14:00→17:34)
[2017-12-23 14:27] LABS: MAGNESIUM 1.5 MG/DL (1.3-2.1); PHOSPHORUS 3.7 MG/DL (2.3-4.7)
[2017-12-23] MEDS: CARVEDILOL 12.5 MG TAB PO SCH (17:33)
[2017-12-23] MEDS: GABAPENTIN 400 MG CAP PO SCH (17:34)
[2017-12-23] MEDS: LEVALBUTEROL HCL SOLN NEBU 0.63 MG/3 ML NEB INH PRN ×2 (20:34→23:04)
[2017-12-23] MEDS ORDERED: TAMSULOSIN HCL 0.4 MG CAP PO SCH (21:00)
[2017-12-23] MEDS ORDERED: ATORVASTATIN 40 MG TAB PO SCH (21:00)
[2017-12-23] MEDS: FUROSEMIDE INJ 10 MG/ML 2 ML VIAL IV SCH (21:15)
[2017-12-24] VITALS (24 sets, daily range): BP systolic 80–119; BP diastolic 47–76
[2017-12-24] MEDS: LEVALBUTEROL HCL SOLN NEBU 0.63 MG/3 ML NEB INH PRN ×3 (02:28→11:05)
[2017-12-24] MEDS: MORPHINE SULFATE 2 MG/ML SYR IV PRN (05:45)
[2017-12-24] MEDS ORDERED: TIOTROPIUM 18 MCG INH POWDER INH SCH (06:00)
[2017-12-24 06:17] LABS: BASOPHILS % 0.5 % (0.0-1.0); EOSINOPHILS # (AUTO) 0.2 (0.0-0.4); EOSINOPHILS % 2.2 % (0.0-6.0); HEMATOCRIT 38.4 % (38.2-49.6); LYMPHOCYTES # (AUTO) 1.3 (1.0-3.2); LYMPHOCYTES % 17.8 % (18.0-39.1); MEAN CORPUSCULAR HEMOGLOBIN 27.9 pg (28-32); MEAN CORPUSCULAR HGB CONC 31.3 g/dL (31-35); MEAN CORPUSCULAR VOLUME 89.3 fL (81-99); MONOCYTES % 13.6 % (4.4-11.3); NEUTROPHILS # (AUTO) 4.8 (2.1-6.9); NEUTROPHILS % 65.5 % (38.7-80.0); PLATELET COUNT 183 x10e3/uL (140-360); RED CELL DISTRIBUTION WIDTH 19.9 % (11.7-14.4)
[2017-12-24 06:36] LABS: ALANINE AMINOTRANSFERASE 23 IU/L (0-55); ALBUMIN 2.8 g/dL (3.5-5.0); ALKALINE PHOSPHATASE 128 IU/L (40-150); ANION GAP 12.6 mmol/L (8-16); BLOOD UREA NITROGEN 13 mg/dL (7-26); BUN/CREATININE RATIO 15 (6-25); CALCIUM 8.4 mg/dL (8.4-10.2); CARBON DIOXIDE 27 mmol/L (22-29); CHLORIDE 100 mmol/L (98-107); CREATININE, SERUM 0.85 mg/dL (0.72-1.25); EST GLOMERULAR FILTRATION RATE > 60 ML/MIN (60-); GLUCOSE 75 mg/dL (74-118); POTASSIUM 3.6 mmol/L (3.5-5.1); SODIUM 136 mmol/L (136-145)
[2017-12-24] MEDS ORDERED: PANTOPRAZOLE SOD 40 MG TABEC PO SCH (07:30)
[2017-12-24] MEDS ORDERED: LISINOPRIL 2.5 MG TAB PO SCH (09:00)
[2017-12-24] MEDS: METOPROLOL TARTRATE 25 MG TAB PO SCH (09:00)
[2017-12-24] MEDS ORDERED: FOLIC ACID 1 MG TAB PO SCH (09:00)
[2017-12-24] MEDS: CARVEDILOL 12.5 MG TAB PO SCH (09:00)
[2017-12-24] MEDS ORDERED: MULTIVITAMINS/MINERALS TAB PO SCH (09:00)
[2017-12-24] MEDS ORDERED: HYDROMORPHONE 1MG/1ML INJ IV PRN (09:30)
[2017-12-24] MEDS: ASPIRIN 81 MG ENTERIC COATED PO SCH (09:54)
[2017-12-24] MEDS: FUROSEMIDE INJ 10 MG/ML 2 ML VIAL IV SCH (09:54)
[2017-12-24] MEDS: AMIODARONE HCL 200 MG TAB PO SCH (09:54)
[2017-12-24] MEDS: ENOXAPARIN SODIUM INJ 100 MG/ML SYR SC SCH (09:54)
[2017-12-24] MEDS: GABAPENTIN 400 MG CAP PO SCH (09:54)
[2017-12-24] MEDS: FAMOTIDINE 20 MG TAB PO SCH (09:54)
[2017-12-24] MEDS: NICOTINE 21 MG/EA PATCH TOP SCH (09:54)
--- NOTE | 2017-12-24 10:14 | Diagnostic Imaging Report ---
PROCEDURE: A single AP view of the chest. COMPARISON: Portable chest 12/22/2017. INDICATIONS: CONGESTIVE HEART FAILURE FINDINGS: Lines/tubes: None. Lungs: The lungs are well inflated and clear. There is no evidence of pneumonia or pulmonary edema. Bibasilar atelectasis. Pleura: There is no pleural effusion or pneumothorax. Heart and mediastinum: The heart and the mediastinum are unremarkable. Bones: No acute bony abnormality. Median sternotomy wires. IMPRESSION: No acute radiographic abnormality. Dictated by: Byron Goldsmith M.D. on 12/24/2017 at 10:14 Electronically approved by: Byron Goldsmith M.D. on 12/24/2017 at 10:14
[2017-12-24] MEDS ORDERED: MUPIROCIN 2% OINT 22 GM TUBE TOP SCH (17:00)
== END 2017-12-24 13:00 | disposition home or self-care (01) | DRG 280 ==
LOC: ER 16:00 → ERHOLD 19:29 → ICU 23:25
PROVIDERS: ADMIT Internal Medicine; ATTEND Internal Medicine
DX: I21.4 Non-ST elevation (NSTEMI) myocardial infarction (principal); I50.21 Acute systolic (congestive) heart failure; E11.9 Type 2 diabetes mellitus without complications; J44.9 Chronic obstructive pulmonary disease, unspecified; I48.0 Paroxysmal atrial fibrillation; Z99.81 Dependence on supplemental oxygen; R55 Syncope and collapse; F17.200 Nicotine dependence, unspecified, uncomplicated; I11.0 Hypertensive heart disease with heart failure; I25.10 Atherosclerotic heart disease of native coronary artery without angina pectoris; Z95.1 Presence of aortocoronary bypass graft; Z95.5 Presence of coronary angioplasty implant and graft; M47.816 Spondylosis without myelopathy or radiculopathy, lumbar region; Z79.01 Long term (current) use of anticoagulants; Z79.52 Long term (current) use of systemic steroids
CPT/HCPCS: 36415; 71045; 80048; 80053; 80061; 82550; 82553; 82948; 83036; 83605; 83690; 83735; 83880; 84100; 84443; 84484; 84550; 85025; 85610; 85730; 87040; 93005; 93306; 93880; 94640; 99285; J0456; J0696; J1650; J1940; J2270; J2405; J7050

== ENCOUNTER 2018-01-19 11:08 | Emergency (ER) | payer MEDICARE, OTHER ==
[~2018-01-19] VITALS: Ht 177.8 cm; Wt 86.6 kg
[~2018-01-19 11:08] MED LIST changes: +PERCOCET 10-321 EACH PO; +XOPENEX HFA15 GM
--- OUTSIDE RECORDS SUMMARY | 2018-01-19 11:12 | XMS REPORT | Clinical Summary ---
Author Author ZAYDA [facility] Address Unknown Phone Unavailable Care Team Providers Care Senior Principal Process Engineer Name Role Phone PCP Unavailable Allergies No Known Allergies Current Medications Prescription Sig. Disp. Refills Start End Date Status Date tamsulosin (FLOMAX) 0.4 Take 0.4 mg by mouth Active mg Cp24 24 hr capsule daily. predniSONE (DELTASONE) 5 Take 5 mg by mouth 2 Active MG tablet (two) times daily. gabapentin (NEURONTIN) Take 800 mg by mouth Active 800 MG tablet Medrol nightly . nitroglycerin (NITROSTAT) Place 0.4 mg under the Active 0.4 MG SL tablet tongue every 5 (five) minutes as needed. atorvastatin (LIPITOR) 80 Take 80 mg by mouth Active MG tablet daily. esomeprazole (NEXIUM) 40 Take 40 mg by mouth daily Active MG capsuleIndications: 2 . tablets every morning cetirizine (ZYRTEC) 5 MG Take 5 mg by mouth daily. Active tablet oxyCODONE-acetaminophen Take 1 tablet by mouth Active (PERCOCET) 10-325 mg per every 6 (six) hours as tablet needed for Pain. metFORMIN (GLUCOPHAGE) Take 500 mg by mouth Active 500 MG tablet daily with breakfast. fentaNYL (DURAGESIC) 75 Place 1 patch onto the Active mcg/hr patch skin every third day. folic acid (FOLVITE) 1 MG Take 1 mg by mouth 2 Active tablet (two) times daily. brimonidine (ALPHAGAN) 1 drop daily. Active 0.15 % ophthalmic solution tiotropium (SPIRIVA) 18 Inhale 18 mcg by mouth Active mcg inhalation capsule via inhaler daily. docusate sodium (COLACE) Take 100 mg by mouth as Active 100 MG capsule needed for Constipation. cyanocobalamin (VITAMIN Take 1,000 mcg by mouth 2 Active B-12) 1000 MCG tablet (two) times daily . apixaban (ELIQUIS) 5 mg Take 5 mg by mouth 2 Active Tab tablet (two) times daily. METOPROLOL SUCCINATE ORAL Take by mouth. Active furosemide (LASIX) 40 MG Take 40 mg by mouth daily Active tablet as needed. potassium chloride SA Take 20 mEq by mouth 2 Active (K-DUR,KLOR-CON) 20 MEQ (two) times daily. tabletIndications: take one tablet with every 20mg of lasiks aspirin 81 MG chewable Take 81 mg by mouth Active tablet daily. lisinopril Take 2.5 mg by mouth Active (PRINIVIL,ZESTRIL) 2.5 MG daily. tabletIndications: systolic pressure over 160 amiodarone (PACERONE) 200 Take 1 tablet (200 mg 60 tablet 12/28/19 12/28/19 Active MG tablet total) by mouth 2 (two) 18 19 times daily. metoprolol (LOPRESSOR) 25 Take 0.5 tablets (12.5 mg 30 tablet 11 12/2712/28/19 Active MG tablet total) by mouth 2 (two) 18 19 times daily. nicotine (NICODERM CQ) 14 Place 1 patch onto the 28 patch 0 12/28/19 01/27/20 Active mg/24 hr patch skin daily for 30 days. 18 18 albuterol-ipratropium Inhale 2 puffs into the 12/26/19 Discontin (COMBIVENT) 18-103 lungs every 6 (six) hours 18 ued mcg/actuation inhaler as needed. budesonide-formoterol Inhale 2 puffs by mouth 12/26/19 Discontin (SYMBICORT) 80-4.5 via inhaler as needed. 18 ued mcg/actuation inhaler oxyCODONE-acetaminophen Take 1 tablet by mouth 12/26/19 Discontin (PERCOCET) 10-650 mg per every 6 (six) hours as 18 ued tablet needed for Pain. prasugrel (EFFIENT) 10 mg Take 1 tablet (10 mg 0 11/24/19 12/26/19 Discontin Tab tablet total) by mouth daily. 15 18 ued cloNIDine HCl (CATAPRES) Take 0.1 mg by mouth 12/26/19 Discontin 0.1 MG tablet every 4 (four) hours as 18 ued needed (systolic pressure over 170). Active Problems Problem Noted Date Chest pain 12/25/2017 Paroxysmal atrial fibrillation (HCC) 12/25/2017 Hemopericardium 11/18/2014 S/P CABG x 1 11/18/2014 CAD (coronary artery disease) 05/02/2013 Encounters Date Type Specialty Care Team Description 12/26/2017 Orders Only General Internal Medicine 12/26/2017 Procedure Pass 12/26/2017 Surgery Xiang Kramer L CATH & CORONARY ANGIOS 12/25/2017 [facility] Isabel Chowdhury MD Coronary artery disease - Encounter due to calcified coronary 12/27/2017 lesion after 01/18/2017 Immunizations Name Dates Previously Given Next Due Pneumococcal 11/24/2014 Polysaccharide (Pneumovax) Social History Tobacco Use Types Packs/Day Years Used Date Former Smoker Smokeless Tobacco: Never Used Comments: Quit 20 yrs ago Alcohol Use Drinks/Week oz/Week Comments No Sex Assigned at Date Recorded Not on file Last Filed Vital Signs Vital Sign Reading Time Taken Blood Pressure 112/56 12/27/2017 7:50 AM [facility]ASS [facility]TER Pulse 89 12/27/2017 7:50 AM GLASS [facility]TER Temperature 36.1 C (96.9 F) 12/27/2017 7:50 AM GLASS [facility]TER Respiratory Rate 19 12/27/2017 7:50 AM GLASS SETTER Oxygen Saturation 95% 12/27/2017 7:50 AM GLASS [facility]TER Inhaled Oxygen - - Concentration Weight 88 kg (194 lb) 12/26/2017 8:15 AM GLASS [facility]TER Height 177.8 cm (5' 10") 12/25/2017 6:00 PM GLASS [facility]TER Body Mass Index 27.84 12/26/2017 8:15 AM GLASS [facility]TER Plan of Treatment Health Maintenance Due Date Last Done Comments INFLUENZA VACCINE 07/22/2017 Implants Implanted Type Area Junior Project Coordinator Device Expiration Model / Identifier Date Serial / Lot Promus Prempancho Left: Implanted: Qty: 1 on 08/17/2014 by Coronary Xiang Kramer MD Procedures Procedure Name Priority Date/Time Associated Diagnosis Comments L CATH & CORONARY ANGIOS 12/26/2017 AFIB 3:09 PM GLASS [facility]TER Case Notes ROBERT APPROVED POSS PCI after 01/18/2017 Results * RHYTHM STRIP - SCAN (01/16/2018 12:40 PM) Only the most recent of 2 results within the time period is included. * VASCULAR DIAGRAM -SCAN (01/08/2018 12:11 PM) * CARDIAC CATH REPORT - SCAN (12/28/2017 7:40 AM) * POC-Glucose meter (12/27/2017 7:08 AM) Only the most recent of 5 results within the time period is included. Component Value Ref Range POC-Glucose Meter 138 (H)Comment: TESTED AT [facility] [address] [place] [address] 70 - 110 mg /dL [facility] [id number] Specimen Performing Laboratory Blood [address] [address] * PT/aPTT (12/27/2017 4:33 AM) Only the most recent of 2 results within the time period is included. Component Value Ref Range Protime 15.6 (H) 11.7 - 14.7 seconds INR 1.2 <=5.9 PTT 39.5 (H) 22.5 - 36.0 seconds Specimen Performing Laboratory Blood - Arm, Right [address] [address] Narrative RECOMMENDED COUMADIN/WARFARIN INR THERAPY RANGES STANDARD DOSE: 2.0 - 3.0 Includes: PROPHYLAXIS for venous thrombosis, systemic embolization; TREATMENT for venous thrombosis and/or pulmonary embolus. HIGH RISK: Target INR is 2.5-3.5 for patients with mechanical heart valves. * CBC with platelet count + automated diff (12/27/2017 4:33 AM) Only the most recent of 3 results within the time period is included. Component Value Ref Range WBC 6.4 3.5 - 10.5 K/ L RBC 4.05 (L) 4.63 - 6.08 M/ L Hemoglobin 11.2 (L) 13.7 - 17.5 GM/DL Hematocrit 36.3 (L) 40.1 - 51.0 % MCV 89.6 79.0 - 92.2 fL MCH 27.7 25.7 - 32.2 pg MCHC 30.9 (L) 32.3 - 36.5 GM/DL RDW 19.0 (H) 11.6 - 14.4 % Platelets 154 150 - 450 K/CU MM MPV 10.6 9.4 - 12.4 fL nRBC 0 0 - 0 /100 WBC % Neutros 78 % % Lymphs 8 % % Monos 12 % % Eos 2 % % Baso 0 % # Neutros 5.00 1.78 - 5.38 K/ L # Lymphs 0.50 (L) 1.32 - 3.57 K/ L # Monos 0.77 0.30 - 0.82 K/ L # Eos 0.13 0.04 - 0.54 K/ L # Baso 0.02 0.01 - 0.08 K/ L Immature 0 0 - 1 % Granulocytes-Relative Specimen Performing Laboratory Blood - Arm, [address] [address] * CBC with platelet count + automated diff (12/27/2017 4:33 AM) Only the most recent of 3 results within the time period is included. Specimen Performing Laboratory Blood Narrative The following orders were created for panel order CBC with platelet count + automated diff. Procedure Abnormality Status --------- - ------ CBC with platelet count ...[[id number]]AbnormalFinal result Please view results for these tests on the individual orders. * Phosphorus (12/27/2017 4:33 AM) Only the most recent of 2 results within the time period is included. Component Value Ref Range Phosphorus 2.9 2.3 - 4.7 mg/dL Specimen Performing Laboratory Blood - Arm, [address] [address] * Magnesium (12/27/2017 4:33 AM) Only the most recent of 2 results within the time period is included. Component Value Ref Range Magnesium 1.7 1.6 - 2.6 mg/dL Specimen Performing Laboratory Blood - Arm, [address] [address] * Hemoglobin A1c (12/27/2017 4:33 AM) Only the most recent of 2 results within the time period is included. Component Value Ref Range Hemoglobin A1C 5.8 4.3 - 6.1 % Specimen Performing Laboratory Blood - Arm, [facility] [address] [place] [address] * Hepatic function panel (12/27/2017 4:33 AM) Only the most recent of 2 results within the time period is included. Component Value Ref Range Protein, Total 5.0 (L) 6.0 - 8.3 gm/dL Albumin 2.7 (L) 3.5 - 5.0 g/dL Total Bilirubin 0.3 0.2 - 1.2 mg/dL Bilirubin, Direct 0.2 0.1 - 0.5 mg/dL Alkaline Phosphatase 130 40 - 150 U/L AST 36 (H) 5 - 34 U/L ALT 30 6 - 55 U/L Specimen Performing Laboratory Blood - Arm, [address] [address] * Basic metabolic panel (12/27/2017 4:33 AM) Only the most recent of 2 results within the time period is included. Component Value Ref Range Sodium 142 136 - 145 meq/L Potassium 4.3 3.5 - 5.1 meq/L Chloride 113 (H) 98 - 107 meq/L CO2 22 22 - 29 meq/L BUN 12 7 - 21 mg/dL Creatinine 0.78 0.57 - 1.25 mg/dL Glucose 122 (H) 70 - 105 mg/dL Calcium 8.1 (L) 8.4 - 10.2 mg/dL EGFR 99Comment: ESTIMATED GFR IS NOT ACCURATE mL/min/1.73 sq m CREATININE CLEARANCE IN PREDICTING GLOMERULAR FILTRATION RATE. ESTIMATED GFR IS NOT APPLICABLE FOR DIALYSIS PATIENTS. Specimen Performing Laboratory Blood - Arm, [address] [address] * aPTT (12/26/2017 1:14 PM) Only the most recent of 2 results within the time period is included. Component Value Ref Range PTT 66.0 (H) 22.5 - 36.0 seconds Specimen Performing Laboratory Blood [address] [address] * ECG 12 lead (12/26/2017 5:40 AM) Specimen Performing Laboratory GE MUSE Narrative Ventricular Rate 89 BPM Atrial Rate 89 BPM P-R Interval 158 ms QRS Duration 116 ms Q-T Interval 384 ms QTC Calculation(Bazett) 467 ms P [employer] 59 degrees R [employer] 77 degrees T [employer] 239 degrees Normal sinus rhythm Possible Left atrial enlargement ST & T wave abnormality, consider inferior ischemia ST & T wave abnormality, consider anterolateral ischemia Prolonged QT Abnormal ECG When compared with ECG of 20-NOV-2014 05:24, anterolateral ischemia is now present Confirmed by MD SPICER JORGE [id number]) on 12/26/2017 2:14:53 PM Procedure Note Interface, External Ris In - 12/26/2017 2:15 PM GLASS [facility]TER Ventricular Rate 89 BPM Atrial Rate 89 BPM P-R Interval 158 ms QRS Duration 116 ms Q-T Interval 384 ms QTC Calculation(Bazett) 467 ms P [employer] 59 degrees R [employer] 77 degrees T [employer] 239 degrees Normal sinus rhythm Possible Left atrial enlargement ST & T wave abnormality, consider inferior ischemia ST & T wave abnormality, consider anterolateral ischemia Prolonged QT Abnormal ECG When compared with ECG of 20-NOV-2014 05:24, anterolateral ischemia is now present Confirmed by MD SPICER JORGE ([id number]) on 12/26/2017 2:14:53 PM * Troponin I (12/26/2017 12:41 AM) Only the most recent of 2 results within the time period is included. Component Value Ref Range Troponin I 0.23 (HH) 0.00 - 0.03 ng/mL Specimen Performing Laboratory Blood - Arm, [address] [address] Narrative Troponin I (TnI) levels must be interpreted in the context of the presenting symptoms and the clinical findings. Elevated TnI levels indicate myocardial damage, but are not specific for ischemic heart disease. Elevated TnI levels are seen in patients with other cardiac conditions (including myocarditis and congestive heart failure), and slight TnI elevations occur in patients with other conditions, including sepsis, renal failure, acidosis, acute neurological disease, and persistent tachyarrhythmia. * Creatine Kinase (CK), Total and MB (12/26/2017 12:41 AM) Only the most recent of 2 results within the time period is included. Component Value Ref Range Total CK 41 29 - 200 U/L CK-MB 1.5 0.0 - 6.6 ng/mL MB Relative Index 3.7 % Specimen Performing Laboratory Blood - Arm, [address] [address] Narrative CK-MB Reference Range: <6.7Normal 6.7-10.0Borderline >10.0 Abnormal after 01/18/2017
--- OUTSIDE RECORDS SUMMARY | 2018-01-19 11:13 | XMS REPORT | Continuity of Care Document ---
Author Author [facility] Organization [facility] Address [address] [place] [address] Phone Unavailable Care Team Providers Care Log Rafter Name Role Phone ANTHONY BRUNO MD PCP Insurance Providers Guarantor Lakeisha Duncan Jr Address [address] [place] [address] Payer Miscellaneous Ppo Policy Number [id number] Subscriber's Name Lakeisha Duncan Jr Jasmyne Relationship 18 Self / Same As Patient Group Number [id number] Group Name RETIRED Effective Date 13 Payer Medicare A & B Policy Number [id number] Subscriber's Name Lakeisha Duncan Jr Relationship 18 Self / Same As Patient Group Number [id number] Group Name RETIRED Effective Date 13 Advance Directives Directive Response Recorded Date/Time Does the patient have an advance directive? No 12/23/17 12:00am If yes, is advance directive on file with [facility]? No 12/23/17 12:00am If not on file with [facility] will patient provide a copy? No 12/23/17 12:00am Do you have a Directive to Physician? No 12/22/17 6:07pm Do you have a Medical Power of Layout Inspector? No 12/22/17 6:07pm Do you have an out of hospital Do Not Resuscitate Order? No 12/22/17 6:07pm Do you have any special needs we should be aware of? No 12/22/17 6:08pm Do you have a support person here with you today? Yes 12/22/17 6:08pm Did patient receive Notice of Privacy Practices? Yes 12/22/17 6:08pm Did patient receive patient rights and responsibilities? Yes 12/22/17 6:08pm Problems Medical Problem Onset Date Status Anemia 03/30/2016 Acute Atrial fibrillation 10/09/2015 Acute COPD exacerbation Unknown Chest pain 06/18/2014 Acute Elbow contusion Unknown Acute Fall Unknown Acute Hypotension (arterial) 10/09/2015 Acute Influenza A Unknown Myocardial infarction Unknown Shoulder contusion Unknown Acute Skin tear Unknown Acute Tight chest 06/18/2014 Acute Traumatic hematoma of right elbow Unknown Acute Medications Current Home Medications Medication Dose Units Route Directions Days Qty Instructions Start Date Atorvastatin Calcium (Lipitor) 80 Mg Tablet 80 Mg Oral Daily Cetirizine Hcl (Zyrtec) 10 Mg Capsule 10 Mg Oral Bedtime Docusate Sodium (Colace) 100 Mg Cap 100 Mg Oral Daily 30 Cap Eliquis 5 Mg Oral Twice A Day Esomeprazole Magnesium (Nexium) 20 Mg Capsule.dr Unknown Dose PROTONIX THERAPEUTIC INTERCHANGE PER [facility] Fentanyl Citrate-0.9 % Nacl/Pf (Fentanyl 50 Mcg/10 Ml Ns Syr) 50 Mcg/10 Ml Government Instructor.syring 75 Mcg Transderm Folic Acid 1 Mg Tablet 1 Mg Oral Daily 30 Tab Furosemide (Lasix) 40 Mg Tablet 40 Mg Oral Daily 30 Tab Gabapentin (Neurontin) 300 Mg Capsule 1,600 Mg Oral Bedtime Levalbuterol Tartrate (Xopenex Hfa) 15 Gm Hfa.aer.ad Lisinopril 2.5 Mg Tablet 2.5 Mg Oral As Needed 30 Tab Metformin Hcl 500 Mg Tablet 500 Mg Oral Daily 60 Tab Multivitamin (Multivitamins) 1 Each Capsule 1 Tab Oral Daily Nitroglycerin (Nitrostat) 0.4 Mg Tab.subl 0.4 Mg Sublingual As Needed [place]-3 Fatty Acids/Fish Oil (Fish Oil 1,000 Mg Capsule) 1 Each Capsule 1 Cap Oral Daily Oxycodone Hcl/Acetaminophen (Percocet 10-325 Mg Tablet) 1 Each Tablet 1 Tab Oral Every 4 Hours as needed for Pain Prednisone 5 Mg Tablet 5 Mg Oral Twice A Day Tamsulosin Hcl (Flomax*) 0.4 Mg Cap 0.4 Mg Oral Daily Tiotropium Wilson (Spiriva) 18 Mcg Cap.w.dev 18 Mcg Inhalation Tiotropium Wilson (Spiriva) 18 Mcg Cap.w.dev 18 Mcg Inhalation Past Home Medications Medication Directions Ordered Status Albuterol/Ipratropium (Combivent Inhaler) 14.7 Gm Aero, 1 Each Inhalation Discontinued Aspirin (Aspirin Ec) 81 Mg Tablet., 81 Mg Oral Daily Discontinued Budesonide/Formoterol Fumarate (Symbicort 80-4.5 Mcg Inhaler) 10.2 Gm Hfa.aer.ad, 1 Each Inhalation Discontinued Carisoprodol 350 Mg Tablet, 350 Mg Oral As Needed Discontinued Clonazepam (Klonopin) 1 Mg Tablet, 1 Mg Oral Twice A Day as needed for Anxiety 10/13/15 Discontinued Eliqus , Discontinued Isosorbide Mononitrate (Imdur) 60 Mg Tab.er.24h, 60 Mg Oral Discontinued Levofloxacin (Levaquin) 500 Mg Tablet, 500 Mg Oral Daily Discontinued Lisinopril 5 Mg Tablet, 2.5 Mg Oral Daily 10/13/15 Discontinued Lisinopril 5 Mg Tablet, 5 Mg Oral As Needed Discontinued Loratadine/Pseudoephedrine (Claritin-D 24 Hour Tablet) 1 Each Tab.er.24h, 1 Each Oral Daily Discontinued Metformin Hcl (Metformin Hcl Er) 500 Mg Tab.er.24h, 500 Mg Oral Discontinued Metoprolol Succinate (Toprol Xl) 25 Mg Tab.er.24h, 12.5 Mg Oral Daily Discontinued Metoprolol Succinate (Toprol Xl) 50 Mg Tab.er.24h, 50 Mg Oral Daily Discontinued Om-3/Dha/Epa/Fish Oil/Vit D3 (Fish Oil + Vitamin D-3 Softgel) 1 Each Capsule, Discontinued Omeprazole 40 Mg Capsule., 40 Mg Oral Daily Discontinued Omeprazole (Prilosec) 10 Mg Capsule., 10 Mg Oral Daily Discontinued Oxycodone Hcl/Acetaminophen (Percocet 10-650 Mg Tablet) 1 Each Tablet, 1 Each Oral Every 4 Hours as needed for Pain Discontinued Paroxetine Hcl (Paxil) 20 Mg Tablet, 20 Mg Oral Daily 10/13/15 Discontinued Prasugrel Hcl (Effient) 10 Mg Tablet, 10 Mg Oral Daily Discontinued Ranolazine (Ranexa) 500 Mg Tabsr, 500 Mg Oral Twice A Day Discontinued Sucralfate (Carafate) 1 Gm Tablet, 1 G Oral Every 6 Hours as needed for Gi Upset Discontinued Temazepam 15 Mg Capsule, 15 Mg Oral As Needed Discontinued Warfarin Sodium (Coumadin) 5 Mg Tablet, 5 Mg Oral Daily 10/13/15 Discontinued Social History Social History Problem Response Recorded Date/Time Onset Date Status Hx Psychiatric Problems No 12/23/2017 12:00am Not Applicable Not Applicable Hx Eating Disorder No 12/23/2017 12:00am Not Applicable Not Applicable Hx Substance Use Disorder No 12/23/2017 12:00am Not Applicable Not Applicable Hx Depression Yes 12/23/2017 12:00am Not Applicable Not Applicable Hx Alcohol Use No 12/23/2017 12:00am Not Applicable Not Applicable Hx Substance Use Treatment No 12/23/2017 12:00am Not Applicable Not Applicable Hx Physical Abuse No 12/23/2017 12:00am Not Applicable Not Applicable Smoking Status Start Date Stop Date Current some day smoker Hospital Discharge Instructions No hospital discharge instruction information available. Plan of Care Discharge Date 12/24/17 1:00pm Disposition STILL A PATIENT Instructions/Education Provided Atrial Fibrillation Congestive Heart Failure Prescriptions See Medication Section Additional Instructions/Education bedrest until f/u with fund development manager Functional Status Query Response Date Recorded Assistive Devices Rolling Walker December 23, 2017 12:00am Ambulation Ability Standby Assistance December 23, 2017 12:00am Toileting Ability Independent December 23, 2017 8:00pm Allergies, Adverse Reactions, Alerts Allergen Type Severity Reaction Status Last Updated Albuterol Allergy Unknown A-fib Active 12/22/17 Immunizations No immunization information available. Vital Signs Acute Vital Signs Vital Response Date/Time Temperature (Fahrenheit) 98.9 degrees F (97.6 - 99.5) 12/24/2017 11:10am Pulse Pulse Rate (adult) 81 bpm (60 - 90) 12/24/2017 11:40am Respiratory Rate 18 bpm (12 - 24) 12/24/2017 11:40am Blood Pressure 119/71 mm Hg 12/24/2017 11:40am Height 5 ft 10 in 12/23/2017 12:00am Weight 191 lb 12/23/2017 7:30am Body Mass Index 27.4 kg/m^2 12/24/2017 5:00am Results Laboratory Results Test Name Result Units Flags Reference Collection Date/Time Result Date/ Time Comments Urine Color YELLOW YELLOW 06/22/2017 2:40pm 06/22/2017 2:37pm Urine Clarity SL CLOUDY H CLEAR 06/22/2017 2:40pm 06/22/2017 2:37pm Urine Specific [place] 1.015 1.010-1.025 06/22/2017 2:40pm 2016 2:37pm Urine pH 6 5 - 7 06/22/2017 2:40pm 06/22/2017 2:37pm Urine Leukocyte Esterase TRACE H NEGATIVE 06/22/2017 2:40pm 2016 2:37pm Urine Nitrite NEGATIVE NEGATIVE 06/22/2017 2:40pm 06/22/2017 2:37pm Urine Protein NEGATIVE NEGATIVE 06/22/2017 2:40pm 06/22/2017 2:37pm Urine Glucose (UA) NEGATIVE NEGATIVE 06/22/2017 2:40pm 06/22/2017 2: 37pm Urine Ketones NEGATIVE NEGATIVE 06/22/2017 2:40pm 06/22/2017 2:37pm Urine Urobilinogen 0.2 mg/dL 0.2 - 1 06/22/2017 2:40pm 06/22/2017 2: 37pm Urine Bilirubin NEGATIVE NEGATIVE 06/22/2017 2:40pm 06/22/2017 2: 37pm Urine Blood NEGATIVE NEGATIVE 06/22/2017 2:40pm 06/22/2017 2:37pm Urine WBC 11-20 /HPF H 0-5 06/22/2017 2:40pm 06/22/2017 2:46pm Urine RBC 0-5 /HPF 0-5 06/22/2017 2:40pm 06/22/2017 2:46pm Urine Bacteria MODERATE /HPF H NONE 06/22/2017 2:40pm 06/22/2017 2:46pm Urine Epithelial Cells NONE /LPF NONE 06/22/2017 2:40pm 06/22/2017 2: 46pm Urine Yeast MODERATE H NONE 06/22/2017 2:40pm 06/22/2017 2:46pm Differential Total Cells Counted 100 09/13/2017 6:24am 09/13/2017 10:32am Neutrophils % (Manual) 87 % H 40-74 09/13/2017 6:24am 09/13/2017 10: 32am Band Neutrophils % 1 % 09/13/2017 6:24am 09/13/2017 10:32am Lymphocytes % (Manual) 4 % L 19-48 09/13/2017 6:24am 09/13/2017 10:32am Monocytes % (Manual) 8 % 3.4-9.0 09/13/2017 6:24am 09/13/2017 10:32am Myelocytes % 1 % H 0-0 09/11/2017 6:12pm 09/11/2017 7:22pm Platelet Estimate ADEQUATE 09/13/2017 6:24am 09/13/2017 10:32am Platelet Morphology Comment NORMAL 09/13/2017 6:24am 09/13/2017 10: 32am Poikilocytosis SLIGHT 09/11/2017 6:12pm 09/11/2017 7:22pm Anisocytosis SLIGHT 09/13/2017 6:24am 09/13/2017 10:32am Schistocytes FEW 09/11/2017 6:12pm 09/11/2017 7:22pm Red Cell Morphology Comment ABNORMAL 09/13/2017 6:24am 09/13/2017 10:32am Influenza Virus Types A,B Antigen POSITIVE FLU A H NEGATIVE 09/11/2017 5:40pm 09/11/2017 6:31pm Results called to CHINA GOLDMAN RN at 1830 on 09/11/17 by Kvng Kee. RB OK. White Blood Count 7.38 x10e3/uL 4.8-10.8 12/24/2017 5:40am 12/24/2017 6 :30am Red Blood Count 4.30 x10e6/uL 4.3-5.7 12/24/2017 5:40am 12/24/2017 6: 30am Hemoglobin 12.0 g/dL L 14.0-18.0 12/24/2017 5:40am 12/24/2017 6:30am Hematocrit 38.4 % 38.2-49.6 12/24/2017 5:40am 12/24/2017 6:30am Mean Corpuscular Volume 89.3 fL 81-99 12/24/2017 5:40am 12/24/2017 6: 30am Mean Corpuscular Hemoglobin 27.9 pg L 28-32 12/24/2017 5:40am 2017 6:30am Mean Corpuscular Hemoglobin Concent 31.3 g/dL 31-35 12/24/2017 5:40am 12/24/2017 6:30am Red Cell Distribution Width 19.9 % H 11.7-14.4 12/24/2017 5:40am 2017 6:30am Platelet Count 183 x10e3/uL 140-360 12/24/2017 5:40am 12/24/2017 6: 30am Neutrophils (%) (Auto) 65.5 % 38.7-80.0 12/24/2017 5:40am 12/24/2017 6: 30am Lymphocytes (%) (Auto) 17.8 % L 18.0-39.1 12/24/2017 5:40am 12/24/2017 6 :30am Monocytes (%) (Auto) 13.6 % H 4.4-11.3 12/24/2017 5:40am 12/24/2017 6: 30am Eosinophils (%) (Auto) 2.2 % 0.0-6.0 12/24/2017 5:40am 12/24/2017 6: 30am Basophils (%) (Auto) 0.5 % 0.0-1.0 12/24/2017 5:40am 12/24/2017 6:30am IM GRANULOCYTES % 0.4 % 0.0-1.0 12/24/2017 5:40am 12/24/2017 6:30am Neutrophils # (Auto) 4.8 2.1-6.9 12/24/2017 5:40am 12/24/2017 6:30am Lymphocytes # (Auto) 1.3 1.0-3.2 12/24/2017 5:40am 12/24/2017 6:30am Monocytes # (Auto) 1.0 H 0.2-0.8 12/24/2017 5:40am 12/24/2017 6:30am Eosinophils # (Auto) 0.2 0.0-0.4 12/24/2017 5:40am 12/24/2017 6:30am Basophils # (Auto) 0.0 0.0-0.1 12/24/2017 5:40am 12/24/2017 6:30am Absolute Immature Granulocyte (auto 0.03 x10e3/uL 0-0.1 12/24/2017 5: 40am 12/24/2017 6:30am Prothrombin Time 15.5 seconds H 11.9-14.5 12/22/2017 4:05pm 12/22/2017 4 :50pm Prothromb Time International Ratio 1.33 12/22/2017 4:05pm 2017 4:50pm Oral Anticoagulant Therapy INR Values: 1. Low Intensity Therapy 1.5 - 2.0 2. Moderate Intensity Therapy 2.0 - 3.0 3. High Intensity Therapy(1) 2.5 - 3.5 4. High Intensity Therapy(2) 3.0 - 4.0 5. Panic Value INR > 5.0 Activated Partial Thromboplast Time 32.5 seconds 23.8-35.5 12/22/2017 4: 05pm 12/22/2017 4:50pm Sodium Level 136 mmol/L 136-145 12/24/2017 5:40am 12/24/2017 6:41am Potassium Level 3.6 mmol/L 3.5-5.1 12/24/2017 5:40am 12/24/2017 6:41am Chloride Level 100 mmol/L 98-107 12/24/2017 5:40am 12/24/2017 6:41am Carbon Dioxide Level 27 mmol/L 22-29 12/24/2017 5:40am 12/24/2017 6: 41am Anion Gap 12.6 mmol/L 8-16 12/24/2017 5:40am 12/24/2017 6:41am Blood Urea Nitrogen 13 mg/dL 7-26 12/24/2017 5:40am 12/24/2017 6:41am Creatinine 0.85 mg/dL 0.72-1.25 12/24/2017 5:40am 12/24/2017 6:41am BUN/Creatinine Ratio 15 6-25 12/24/2017 5:40am 12/24/2017 6:41am Estimat Glomerular Filtration Rate > 60 ML/MIN 60- 12/24/2017 5:40am 6:41am Ranges were taken from the National Kidney Disease Education Program and the National Kid[employer] Foundation literature. Reference ranges: 60 or greater: Normal 16-59 (for 3 consecutive months): Chronic kidney disease 15 or less: Kidney failure Glucose Level 75 mg/dL 74-118 12/24/2017 5:40am 12/24/2017 6:41am Calcium Level 8.4 mg/dL 8.4-10.2 12/24/2017 5:40am 12/24/2017 6:41am Bedside Glucose 80 mg/dL 70-120 12/23/2017 11:19am 12/23/2017 11:36am Meter ID: [id number] Hemoglobin A1c Percent 5.6 % 4.0-7.0 12/24/2017 5:40am 12/24/2017 6: 50am Lactic Acid Level 14.3 MG/DL 4.5-19.8 12/22/2017 4:55pm 12/22/2017 5: 23pm Uric Acid 5.9 mg/dL 4.8-8.0 12/23/2017 1:30pm 12/23/2017 2:28pm Phosphorus Level 3.7 MG/DL 2.3-4.7 12/23/2017 1:30pm 12/23/2017 2:28pm Magnesium Level 1.3 MG/DL 1.3-2.1 12/24/2017 6:00am 12/24/2017 9:10am Total Bilirubin 0.5 mg/dL 0.2-1.2 12/24/2017 5:40am 12/24/2017 6:41am Aspartate Amino Transf (AST/SGOT) 20 IU/L 5-34 12/24/2017 5:40am 2017 6:41am Alanine Aminotransferase (ALT/SGPT) 23 IU/L 0-55 12/24/2017 5:40am 02/2018 6:41am Total Protein 5.5 g/dL L 6.5-8.1 12/24/2017 5:40am 12/24/2017 6:41am Albumin 2.8 g/dL L 3.5-5.0 12/24/2017 5:40am 12/24/2017 6:41am Globulin 2.7 g/dL 2.3-3.5 12/24/2017 5:40am 12/24/2017 6:41am Albumin/Globulin Ratio 1.0 0.8-2.0 12/24/2017 5:40am 12/24/2017 6: 41am Alkaline Phosphatase 128 IU/L 40-150 12/24/2017 5:40am 12/24/2017 6: 41am Triglycerides Level 115 MG/DL 0-149 12/23/2017 5:27am 12/23/2017 6: 52am Cholesterol Level 105 MD/DL 0-199 12/23/2017 5:27am 12/23/2017 6:52am Less than 200 mg/dL Low Risk 201 - 239 mg/dL Borderline Risk 240 mg/dl and greater High Risk LDL Cholesterol 51 MG/DL L 60-130 12/23/2017 5:27am 12/23/2017 6:52am HDL Cholesterol 31 MG/DL L 40-60 12/23/2017 5:27am 12/23/2017 6:52am Cholesterol/HDL Ratio 3.4 L 3.9-4.7 12/23/2017 5:27am 12/23/2017 6: 52am B-Type Natriuretic Peptide 999.6 pg/mL H 0-100 12/24/2017 5:40am 2017 7:03am Creatine Kinase 57 IU/L 30-200 12/23/2017 1:30pm 12/23/2017 2:05pm Creatine Kinase MB 4.00 ng/mL 0-5.0 12/23/2017 1:30pm 12/23/2017 2: 14pm Troponin I 0.673 ng/mL H 0-0.300 12/23/2017 1:30pm 12/23/2017 2:14pm Lipase 17 U/L 8-78 12/22/2017 4:05pm 12/22/2017 4:50pm Thyroid Stimulating Hormone (TSH) 1.725 uIU/mL 0.350-4.940 12/22/2017 4: 05pm 12/22/2017 5:06pm Microbiology Results Procedure Source Organism/Result Collection Date/Time Result Date/Time Result Status Blood Culture Blood NO GROWTH AFTER 24 HOURS 12/23/2017 12:22pm 2017 12:36pm Preliminary Procedures Procedure Status Date Provider(s) Magnetic resonance imaging of lumbar spine without contrast Active 03/27/17 KAREEM NUNES MD X-ray of chest, single view Active 06/22/17 MENDEZ JACKMAN MD X-ray of chest, single view Active 09/28/17 BEATRIS WINSTON MD Encounters Encounter Location Arrival/Admit Date Discharge/Depart Date Attending Provider Discharged Inpatient [facility] 12/22/17 7:29pm 12/24/17 1:00pm ANTHONY BRUNO MD Departed Emergency [facility] 09/28/17 7:36pm 12:26am BEATRIS WINSTON MD Discharged Inpatient (obs) [facility] 09/11/17 7:54pm 1:35pm ANTHONY BRUNO MD Departed Emergency Room [facility] 08/30/17 5:35pm 10:22pm BEATRIS WINSTON MD Discharged Recurring [facility] 07/25/17 3:56pm 08/21/17 11:59pm DICKSON ZHENG MD Discharged Recurring [facility] 07/04/17 1:19pm 07/21/17 11:59pm DICKSON ZHENG MD Departed Emergency Room [facility] 06/22/17 1:34pm 4:58pm MENDEZ JACKMAN MD Discharged [facility]urring [facility] 04/23/17 4:03pm 05/21/17 11:59pm KAREEM NUNES MD Registered Clinic [facility] 03/27/17 10:05am KAREEM NUNES MD Discharged [facility]urring [facility] 03/26/17 4:00pm 04/20/17 11:59pm KAREEM NUNES MD Discharged [facility]urring [facility] 03/21/17 2:58pm 03/21/17 11:59pm KAREEM NUNES MD
[2018-01-19] MEDS ORDERED: ASPIRIN 81 MG CHEW TAB PO ONE (11:30)
--- NOTE | 2018-01-19 12:02 | Diagnostic Imaging Report ---
EXAMINATION: CHEST SINGLE (PORTABLE) INDICATION: \S\ERMD ORDER \S\[id number] \S\[id number] \S\Y COMPARISON: Chest radiograph 12/22/2017 FINDINGS: AP view TUBES and LINES: None. LUNGS: Lungs are well inflated. Central pulmonary venous congestion without gualberto edema. There is no evidence of pneumonia. PLEURA: No pleural effusion or pneumothorax. Right costophrenic sulcus partially extends out of the field of view. HEART AND MEDIASTINUM: Stable mild enlargement of the cardiac silhouette. BONES AND SOFT TISSUES: No acute osseous lesion. Median sternotomy wires. Soft tissues are unremarkable. UPPER ABDOMEN: No free air under the diaphragm. IMPRESSION: Stable mild cardiomegaly with central pulmonary venous congestion. Signed by: DR. James Olvera MD on 01/19/2018 11:59 AM
[2018-01-19 12:18] LABS: BASOPHILS % 0.1 % (0.0-1.0); EOSINOPHILS # (AUTO) 0.1 (0.0-0.4); EOSINOPHILS % 0.9 % (0.0-6.0); HEMATOCRIT 43.4 % (38.2-49.6); LYMPHOCYTES # (AUTO) 0.9 (1.0-3.2); LYMPHOCYTES % 6.5 % (18.0-39.1); MEAN CORPUSCULAR HEMOGLOBIN 28.7 pg (28-32); MEAN CORPUSCULAR HGB CONC 32.3 g/dL (31-35); MEAN CORPUSCULAR VOLUME 89.1 fL (81-99); MONOCYTES # (AUTO) 1.3 (0.2-0.8); MONOCYTES % 9.2 % (4.4-11.3); NEUTROPHILS # (AUTO) 11.3 (2.1-6.9); NEUTROPHILS % 82.1 % (38.7-80.0); PLATELET COUNT 167 x10e3/uL (140-360); RED BLOOD COUNT 4.87 x10e6/uL (4.3-5.7); RED CELL DISTRIBUTION WIDTH 18.9 % (11.7-14.4)
[2018-01-19 12:35] LABS: INR 1.11; PARTIAL THROMBOPLASTIN TIME 25.3 seconds (23.8-35.5); PROTHROMBIN TIME 13.5 seconds (11.9-14.5)
[2018-01-19 12:46] LABS: ALANINE AMINOTRANSFERASE 28 IU/L (0-55); ALBUMIN/GLOBULIN RATIO 1.3 (0.8-2.0); ALKALINE PHOSPHATASE 127 IU/L (40-150); ANION GAP 9.8 mmol/L (8-16); BLOOD UREA NITROGEN 21 mg/dL (7-26); BUN/CREATININE RATIO 23 (6-25); CALCIUM 8.5 mg/dL (8.4-10.2); CARBON DIOXIDE 24 mmol/L (22-29); CHLORIDE 109 mmol/L (98-107); CREATINE KINASE 39 IU/L (30-200); CREATININE, SERUM 0.92 mg/dL (0.72-1.25); EST GLOMERULAR FILTRATION RATE > 60 ML/MIN (60-); GLUCOSE 187 mg/dL (74-118); POTASSIUM 3.8 mmol/L (3.5-5.1); SODIUM 139 mmol/L (136-145)
[2018-01-19 13:29] LABS: CLARITY,URINE CLEAR (CLEAR); COLOR,URINE YELLOW (YELLOW); LEUKOCYTE ESTERASE ,URINE NEGATIVE (NEGATIVE); NITRITE,URINE NEGATIVE (NEGATIVE)
[2018-01-19 13:30] LABS: BILIRUBIN,URINE NEGATIVE (NEGATIVE); KETONES,URINE NEGATIVE (NEGATIVE); PROTEIN,URINE DIPSTICK TRACE (NEGATIVE); URINE UROBILINOGEN 0.2 mg/dL (0.2 - 1)
[2018-01-19 13:35] LABS: BACTERIA,URINE FEW /HPF; EPITHELIAL CELLS,URINE FEW /LPF; RBC,URINE 0-5 /HPF (0-5); WBC,URINE (MAN) 0-5 /HPF (0-5)
[2018-01-19 14:03] VITALS: BP 138/91
[2018-06-20] MEDS ORDERED: B-121000 MCG PO (22:41)
[2018-06-20] MEDS ORDERED: LISINOPRIL2.5 MG PO (22:41)
[2018-06-20] MEDS ORDERED: AMIODARONE HCL200 MG PO (22:41)
[2018-06-21] MEDS ORDERED: PERCOCET 10-321 EACH PO (09:57)
[2018-06-21] MEDS ORDERED: DURAGESIC1 EAC1 TD (10:12)
[2018-06-24] MEDS ORDERED: OXYCODONE-ACET1 EAC1 PO (14:56)
[2018-06-25] MEDS ORDERED: ZYVOX600 MG PO (11:13)
== END 2018-01-19 14:24 | disposition home or self-care (01) ==
LOC: ER 11:08
DX: R00.2 Palpitations (principal); R00.0 Tachycardia, unspecified; I48.2 Chronic atrial fibrillation; Z95.1 Presence of aortocoronary bypass graft
CPT/HCPCS: 36415; 71045; 80053; 81001; 82550; 82553; 84443; 84484; 85025; 85610; 85730; 93005; 99284

== ENCOUNTER 2018-09-23 10:26 | Inpatient (IN) | payer MEDICARE, OTHER ==
[2018-09-23] VITALS (15 sets, daily range): BP systolic 86–108; BP diastolic 53–80
[~2018-09-23] VITALS: Ht 177.8 cm; Wt 78.9 kg
[~2018-09-23 10:26] MED LIST changes: +AMIODARONE HCL200 MG PO; +B-121000 MCG PO; +DURAGESIC1 EAC1 TD; +OXYCODONE-ACET1 EAC1 PO; +ZYVOX600 MG PO
--- OUTSIDE RECORDS SUMMARY | 2018-09-23 10:30 | XMS REPORT | Clinical Summary ---
Author Author ZAYDA [facility] Organization [facility] Address Unknown Phone Unavailable Care Team Providers Care Cone Tender Name Role Phone Sergio Antoine PCP Byron Gilmore 29 Unavailable Allergies No Known Allergies Medications End Date Status Medication Sig Dispensed Refills Start Date Active tamsulosin (FLOMAX) 0.4 Take 0.4 mg 0 mg Cp24 24 hr capsule by mouth daily. Active predniSONE (DELTASONE) 5 Take 5 mg by 0 MG tablet mouth 2 (two) times daily. Active gabapentin (NEURONTIN) Take 800 mg 0 800 MG tablet by mouth Medrol nightly . Active nitroglycerin (NITROSTAT) Place 0.4 mg 0 0.4 MG SL tablet under the tongue every 5 (five) minutes as needed. Active atorvastatin (LIPITOR) 80 Take 80 mg by 0 MG tablet mouth daily. Active esomeprazole (NEXIUM) 40 Take 40 mg by 0 MG capsuleIndications: 2 mouth daily . tablets every morning Active cetirizine (ZYRTEC) 5 MG Take 5 mg by 0 tablet mouth daily. Active oxyCODONE-acetaminophen Take 1 tablet 0 (PERCOCET) 10-325 mg per by mouth tablet every 6 (six) hours as needed for Pain. Active metFORMIN (GLUCOPHAGE) Take 500 mg 0 500 MG tablet by mouth daily with breakfast. Active fentaNYL (DURAGESIC) 75 Place 1 patch 0 mcg/hr patch onto the skin every third day. Active folic acid (FOLVITE) 1 MG Take 1 mg by 0 tablet mouth 2 (two) times daily. Active brimonidine (ALPHAGAN) 1 drop daily. 0 0.15 % ophthalmic solution Active tiotropium (SPIRIVA) 18 Inhale 18 mcg 0 mcg inhalation capsule by mouth via inhaler daily. Active docusate sodium (COLACE) Take 100 mg 0 100 MG capsule by mouth as needed for Constipation. Active cyanocobalamin (VITAMIN Take 1,000 0 B-12) 1000 MCG tablet mcg by mouth 2 (two) times daily . Active apixaban (ELIQUIS) 5 mg Take 5 mg by 0 Tab tablet mouth 2 (two) times daily. Active furosemide (LASIX) 40 MG Take 40 mg by 0 tablet mouth daily as needed. Active potassium chloride SA Take 20 mEq 0 (K-DUR,KLOR-CON) 20 MEQ by mouth as tabletIndications: take needed ONLY one tablet with every WITH LASIX. 20mg of lasiks Active lisinopril Take 2.5 mg 0 (PRINIVIL,ZESTRIL) 2.5 MG by mouth tabletIndications: daily. systolic pressure over 160 Active fluticasone/vilanterol Inhale by 0 (BREO ELLIPTA INHL) mouth via inhaler. 05/22/2019 Active amiodarone (PACERONE) 200 Take 1 tablet 30 tablet 11 201 MG tablet (200 mg 8 total) by mouth daily. 12/25/2017 Discontinued albuterol-ipratropium Inhale 2 0 (COMBIVENT) 18-103 puffs into mcg/actuation inhaler the lungs every 6 (six) hours as needed. 12/25/2017 Discontinued budesonide-formoterol Inhale 2 0 (SYMBICORT) 80-4.5 puffs by mcg/actuation inhaler mouth via inhaler as needed. 12/25/2017 Discontinued oxyCODONE-acetaminophen Take 1 tablet 0 (PERCOCET) 10-650 mg per by mouth tablet every 6 (six) hours as needed for Pain. 12/25/2017 Discontinued prasugrel (EFFIENT) 10 mg Take 1 tablet 0 Tab tablet (10 mg total) 5 by mouth daily. 05/21/2018 Discontinued METOPROLOL SUCCINATE ORAL Take by 0 mouth. 12/25/2017 Discontinued cloNIDine HCl (CATAPRES) Take 0.1 mg 0 0.1 MG tablet by mouth every 4 (four) hours as needed (systolic pressure over 170). 05/21/2018 Discontinued aspirin 81 MG chewable Take 81 mg by 0 tablet mouth daily. 05/22/2018 Discontinued amiodarone (PACERONE) 200 Take 1 tablet 60 tablet 11 MG tablet (200 mg 8 total) by mouth 2 (two) times daily. 05/21/2018 Discontinued metoprolol (LOPRESSOR) 25 Take 0.5 30 tablet 11 MG tablet tablets (12.5 8 mg total) by mouth 2 (two) times daily. 01/26/2018 nicotine (NICODERM CQ) 14 Place 1 patch 28 patch 0 mg/24 hr patch onto the skin 8 daily for 30 days. 06/05/2018 diazePAM (VALIUM) 5 MG Take 1 tablet 15 tablet 0 tablet (5 mg total) 8 by mouth every 12 (twelve) hours as needed for Anxiety for up to 10 days. Max Daily Amount: 10 mg 06/05/2018 HYDROcodone-acetaminophen Take 1 tablet 30 tablet 0 (NORCO 10-325) 10-325 mg by mouth 8 per tablet every 6 (six) hours as needed for Pain for up to 10 days. Max Daily Amount: 4 tablets Active Problems Problem Noted Date Ventricular tachycardia 05/21/2018 Cardiomyopathy 05/21/2018 Near syncope 05/21/2018 Chest pain 12/25/2017 Paroxysmal atrial fibrillation 12/25/2017 Hemopericardium 11/18/2014 S/P CABG x 1 11/18/2014 CAD (coronary artery disease) 05/02/2013 Encounters Care Team Description Date Type Specialty Saran Badillo MD Acute pain of left shoulder (Primary Dx); Tear of left rotator cuff, unspecified tear extent; S/P ICD (internal cardiac defibrillator) procedure; Hypertrophic obstructive cardiomyopathy (HCC) 05/26/2018 Emergency Emergency Medicine eRese Cuevas MD 05/21/2018 Anesthesia Event Lakeisha Hurt MD EPS & ABLATION 05/21/2018 Surgery Lakeisha Hurt MD Atrial fibrillation, unspecified type (HCC) 05/21/2018 Hospital Cardiology Encounter Lakeisha Hurt MD Hypertrophic obstructive cardiomyopathy (HCC) 05/21/2018 Hospital Cardiology - Encounter 05/22/2018 Lakeisha Hurt MD 05/20/2018 Orders Only Lakeisha Hurt MD Atrial fibrillation, unspecified type (HCC) (Primary Dx) 05/20/2018 Outside Orders Central Scheduling Xiang Kramer MD L CATH & CORONARY ANGIOS 12/26/2017 Surgery 12/26/2017 Orders Only General Internal Medicine Isabel Chowdhury MD Coronary artery disease due to calcified coronary lesion 12/25/2017 Hospital Cardiology - Encounter 12/27/2017 after 09/22/2017 Immunizations Name Dates Previously Given Next Due Pneumococcal 11/24/2014 Polysaccharide (Pneumovax) Social History Date Tobacco Use Types Packs/Day Years Used Current Every Day Smoker Smokeless Tobacco: Never Used Alcohol Use Drinks/Week oz/Week Comments No Sex Assigned at Date Recorded Not on file Industry Job Start Date Occupation Not on file Not on file Not on file Travel End Travel History Travel Start No recent travel history available. Last Filed Vital Signs Time Taken Vital Sign Reading 05/26/2018 4:44 PM CDT Blood Pressure 158/78 05/26/2018 4:44 PM CDT Pulse 78 05/26/2018 12:15 PM CDT Temperature 36.4 C (97.5 F) 05/26/2018 4:44 PM CDT Respiratory Rate 18 05/26/2018 1:52 PM CDT Oxygen Saturation 96% 12/26/2017 11:14 AM [employer] Inhaled Oxygen 21% Concentration 05/26/2018 12:15 PM CDT Weight 83 kg (183 lb) 05/26/2018 12:15 PM CDT Height 177.8 cm (5' 10") 05/26/2018 12:15 PM CDT Body Mass Index 26.26 Plan of Treatment Health Maintenance Due Date Last Done Comments INFLUENZA VACCINE 07/22/2018 Implants Device Identifier Shelf Expiration Date Model / Serial / Lot Implanted Type Area Manufactur er 09/04/2019 [id number] / [id number] / REF: [id number] Evera Mri Xt Dr An [id number] ICD N/A: Chest [employer] Implanted: Qty: 1 on 05/21/2018 by Lakeisha Hurt MD 04/02/2020 [id number] / [id number] / Sprint Quattro Secure S Mri Sure Pacemaker N/A: Heart [employer] Scan [id number] Lead Implanted: Qty: 1 on 05/21/2018 by Lakeisha Hurt MD 04/22/2020 [id number] / [id number] / Capsurefixd Mri Surescan 4076-45 Cm Pacemaker N/A: Heart [employer] Implanted: Qty: 1 on 05/21/2018 by Lead Lakeisha Hurt MD Promus Premier Left: Coronary Implanted: Qty: 1 on 08/17/2014 by Xiang Kramer MD Procedures Comments Procedure Name Priority Date/Time Associated Diagnosis ED ECG INTERPRETATION Routine 05/26/2018 7:[address] UPPER EXTREMITY WITH STAT 05/26/2018 CONTRAST LEFT 2:39 PM CDT ECG 12-LEAD Routine 05/26/2018 1:40 PM CDT Procedure Note - Interface, External Ris In - 05/26/2018 9:39 PM CDT Ventricula r Rate 68 BPM Atrial Rate 68 BPM P-R Interval 168 ms QRS Duration 118 ms Q-T Interval 440 ms QTC Calculatio n(Bazett) 467 ms P Sigel 62 degrees R Sigel 68 degrees T Sigel 15 degrees Normal sinus rhythm Possible Inferior infarct , age undetermin ed Abnormal ECG When compared with ECG of 8 11:35, Borderline criteria for Inferior infarct are now Present ST now depressed in Inferior leads T wave inversion now evident in Inferior leads ECG 12-LEAD STAT 05/26/2018 1:40 PM CDT XR CHEST PA OR AP 1 VIEW STAT 05/26/2018 IN DEPT. 1:30 PM CDT CBC W/PLT COUNT & AUTO STAT 05/26/2018 DIFFERENTIAL 12:51 PM CDT PT/APTT STAT 05/26/2018 12:51 PM CDT MAGNESIUM STAT 05/26/2018 12:51 PM CDT B-TYPE NATRIURETIC FACTOR STAT 05/26/2018 (BNP) 12:51 PM CDT CREATINE KINASE (CK), STAT 05/26/2018 TOTAL AND MB 12:51 PM CDT TROPONIN I STAT 05/26/2018 12:51 PM CDT BASIC METABOLIC PANEL (7) STAT 05/26/2018 12:51 PM CDT CBC W/PLT COUNT & AUTO STAT 05/26/2018 DIFFERENTIAL 12:51 PM CDT RHYTHM STRIP - SCAN 05/24/2018 10:10 AM CDT ARRYTHMIA IMPLANT REPORT 05/24/2018 - SCAN 10:10 AM CDT CARDIAC CATH REPORT - 05/23/2018 SCAN 5:40 PM CDT TRANSFUSION SERVICE 05/22/2018 REPORT - SCAN 5:51 PM CDT BASIC METABOLIC PANEL (7) Routine 05/22/2018 4:25 AM CDT CBC (HEMOGRAM ONLY) Routine 05/22/2018 4:25 AM CDT POCT-GLUCOSE METER Routine 05/21/2018 10:27 PM CDT XR CHEST 1 VIEW STAT 05/21/2018 PORTABLE/BEDSIDE 10:14 PM CDT EPS & ABLATION 05/21/2018 Atrial fibrillation, 5:24 PM CDT unspecified type (HCC) Case Notes 6T 11T, EPS STUDY ONLY WITH POSS AICD IMPLANT. 2703mGy ECHOCARDIOGRAM REPORT - 05/21/2018 SCAN 5:20 PM CDT TRANSESOPHAGEAL ECHO Routine 05/21/2018 Atrial fibrillation, 1:36 PM CDT unspecified type (HCC) ECG 12-LEAD Routine 05/21/2018 11:35 AM CDT CBC W/PLT COUNT & AUTO STAT 05/21/2018 DIFFERENTIAL 10:57 AM CDT TYPE AND SCREEN, STAT 05/21/2018 AUTOMATED 10:57 AM CDT PROTHROMBIN TIME/INR STAT 05/21/2018 10:57 AM CDT CBC W/PLT COUNT & AUTO STAT 05/21/2018 DIFFERENTIAL 10:57 AM CDT BASIC METABOLIC PANEL (7) STAT 05/21/2018 10:57 AM CDT COLOR-FLOW MAPPING Routine 05/21/2018 Atrial fibrillation, 9:39 AM CDT unspecified type (HCC) CONT WAVE PULSED DOPPLER Routine 05/21/2018 Atrial fibrillation, 9:39 AM CDT unspecified type (HCC) VASCULAR DIAGRAM -SCAN 02/14/2018 3:10 PM CDT RHYTHM STRIP - SCAN 01/16/2018 12:40 PM CDT VASCULAR DIAGRAM -SCAN 01/08/2018 12:11 PM CDT RHYTHM STRIP - SCAN 12/28/2017 1:00 PM [employer] CARDIAC CATH REPORT - 12/28/2017 SCAN 7:40 AM [employer] POCT-GLUCOSE METER Routine 12/27/2017 7:08 AM [employer] CBC W/PLT COUNT & AUTO Routine 12/27/2017 DIFFERENTIAL 4:33 AM [employer] CBC W/PLT COUNT & AUTO Routine 12/27/2017 DIFFERENTIAL 4:33 AM [employer] PHOSPHORUS Routine 12/27/2017 4:33 AM [employer] MAGNESIUM Routine 12/27/2017 4:33 AM [employer] PT/APTT Routine 12/27/2017 4:33 AM [employer] HEMOGLOBIN A1C Routine 12/27/2017 4:33 AM [employer] HEPATIC FUNCTION PANEL Routine 12/27/2017 4:33 AM [employer] BASIC METABOLIC PANEL (7) Routine 12/27/2017 4:33 AM [employer] POCT-GLUCOSE METER Routine 12/26/2017 9:25 PM [employer] L CATH & CORONARY ANGIOS 12/26/2017 AFIB 3:09 PM [employer] CAD Case Notes ROBERT APPROVED POSS PCI APTT Routine 12/26/2017 1:14 PM [employer] POCT-GLUCOSE METER Routine 12/26/2017 11:20 AM [employer] POCT-GLUCOSE METER Routine 12/26/2017 7:40 AM [employer] ECG 12-LEAD Routine 12/26/2017 5:40 AM [employer] Procedure Note - Interface, External Ris In - 12/26/2017 7:00 AM [employer] Ventricula r Rate 89 BPM Atrial Rate 89 BPM P-R Interval 158 ms QRS Duration 116 ms Q-T Interval 384 ms QTC Calculatio n(Bazett) 467 ms P Sigel 59 degrees R Sigel 77 degrees T Sigel 239 degrees Normal sinus rhythm Possible Left atrial enlargemen t Incomplete left bundle branch block ST & T wave abnormalit y, consider inferior ischemia ST & T wave abnormalit y, consider anterolate ral ischemia Prolonged QT Abnormal ECG When compared with ECG of 05:24, Premature atrial complexes are no longer Present Incomplete left bundle branch block is now Present ECG 12-LEAD Routine 12/26/2017 5:40 AM [employer] CBC W/PLT COUNT & AUTO Routine 12/26/2017 DIFFERENTIAL 4:57 AM [employer] CBC W/PLT COUNT & AUTO Routine 12/26/2017 DIFFERENTIAL 4:57 AM [employer] PHOSPHORUS Routine 12/26/2017 4:57 AM [employer]IST MAGNESIUM Routine 12/26/2017 4:57 AM [employer] PT/APTT Routine 12/26/2017 4:57 AM [employer] E[employer]OMIST HEMOGLOBIN A1C Routine 12/26/2017 4:57 AM [employer]IST HEPATIC FUNCTION PANEL Routine 12/26/2017 4:57 AM [employer]IST BASIC METABOLIC PANEL (7) Routine 12/26/2017 4:57 AM [employer]IST CREATINE KINASE (CK), Routine 12/26/2017 TOTAL AND MB 12:41 AM [employer]IST TROPONIN I Routine 12/26/2017 12:41 AM [employer]IST POCT-GLUCOSE METER Routine 12/25/2017 10:47 PM [employer] APTT Routine 12/25/2017 8:27 PM [employer] CBC W/PLT COUNT & AUTO Routine 12/25/2017 DIFFERENTIAL 5:25 PM [employer]IST CREATINE KINASE (CK), Routine 12/25/2017 TOTAL AND MB 5:25 PM [employer]IST TROPONIN I Routine 12/25/2017 5:25 PM [employer] CBC W/PLT COUNT & AUTO Routine 12/25/2017 DIFFERENTIAL 5:25 PM [employer] after 09/22/2017 Results * ED ECG Interpretation (05/26/2018 7:56 PM CDT) Narrative Performed At Saran Badillo MD 05/26/20187:56 PM ECG/EKG Interpretation Date/Time: 05/26/2018 1:40 PM Performed by: SARAN BADILLO Authorized by: SARAN BADILLO The ECG was interpreted by ED physician. This ECG was not compared with previous ECG(s).The ECG is interpreted as sinus rhythm. Rate is normal rate. Heart rate is 68 BPM. Conduction: conduction normal. ST segments abnormal. T waves abnormal. Clinical Impression: non-specific ECGECG reviewed and does not meet STEMI criteria. Patient tolerance: Patient tolerated the procedure well with no immediate complications * CT upper extremity with contrast left (05/26/2018 2:39 PM CDT) Narrative Performed At FINAL REPORT [facility] scan of the left upper extremity. MEDICAL HISTORY: Severe left shoulder pain status post pacemaker placement. COMPARISON STUDY: Chest x-ray dated May 26, 2018. TECHNIQUE: Contiguous helical slices were acquired through the left upper extremity from the superior portion of the left thorax to the lower left thorax post ministration of contrast. This exam was performed according to our department dose optimization program which includes automated exposure control, adjustment of the mA and/or kV according to the patient's size and/or use of iterative reconstruction technique. FINDINGS: A pacer device is noted. It is located superficial to the left pectoralis major muscle. Extensive stranding is noted from the device making assessment difficult. Some areas of stranding and gas surround the device. No definite loculated collections are identified to suggest hematoma. However, artifact limits assessment. The subclavian vein distal to the insertion site is not well seen. No other osseous abnormality is seen. There is no evidence of fracture or malalignment. Sternotomy wires are seen. The left humeral head abuts the acromion statistically massive rotator cuff tear. Atrophic changes are seen in the supra and infraspinous muscles. The visualized pulmonary parenchyma demonstrates no pneumothorax. Degenerative changes are seen. IMPRESSION: 1. Status post left pacer insertion. No hematoma identified. No pneumothorax. 2. Left subclavian vein distal to the insertion site not well opacified or seen. 3. Left humeral head abuts the acromion suggestive of massive rotator cuff tear. Signed: Rafa Rosenbaum MD Report Verified Date/Time:05/26/2018 15:27:47 Reading Location: [address] Transitional Reading Room Procedure Note Interface, External Ris In - 05/26/2018 3:29 PM CDT FINAL REPORT CT scan of the left upper extremity. MEDICAL HISTORY: Severe left shoulder pain status post pacemaker placement. COMPARISON STUDY: Chest x-ray dated May 26, 2018. TECHNIQUE: Contiguous helical slices were acquired through the left upper extremity from the superior portion of the left thorax to the lower left thorax post ministration of contrast. This exam was performed according to our department dose optimization program which includes automated exposure control, adjustment of the mA and/or kV according to the patient's size and/or use of iterative reconstruction technique. FINDINGS: A pacer device is noted. It is located superficial to the left pectoralis major muscle. Extensive stranding is noted from the device making assessment difficult. Some areas of stranding and gas surround the device. No definite loculated collections are identified to suggest hematoma. However, artifact limits assessment. The subclavian vein distal to the insertion site is not well seen. No other osseous abnormality is seen. There is no evidence of fracture or malalignment. Sternotomy wires are seen. The left humeral head abuts the acromion statistically massive rotator cuff tear. Atrophic changes are seen in the supra and infraspinous muscles. The visualized pulmonary parenchyma demonstrates no pneumothorax. Degenerative changes are seen. IMPRESSION: 1. Status post left pacer insertion. No hematoma identified. No pneumothorax. 2. Left subclavian vein distal to the insertion site not well opacified or seen. 3. Left humeral head abuts the acromion suggestive of massive rotator cuff tear. Signed: Rafa Rosenbaum MD Report Verified Date/Time: 05/26/2018 15:27:47 Reading Location: [address] Transitional Reading Room Performing Organization Address [facility] Phone Number GE RIS * ECG 12 lead (05/26/2018 1:40 PM CDT) Only the most recent of 3 results within the time period is included. Narrative Performed At Ventricular Rate 68 BPM GE MUSE Atrial Rate 68 BPM P-R Interval 168 ms QRS Duration 118 ms Q-T Interval 440 ms QTC Calculation(Bazett) 467 ms P Sigel 62 degrees R Sigel 68 degrees T Sigel 15 degrees Normal sinus rhythm Possible Inferior infarct , age undetermined Abnormal ECG When compared with ECG of 21-MAY-2018 11:35, Borderline criteria for Inferior infarct are now Present ST now depressed in Inferior leads T wave inversion now evident in Inferior leads Confirmed by MD VILLANUEVA JOSEPH P ([id number]) on 05/27/2018 6:59:09 AM Procedure Note Interface, External Ris In - 05/27/2018 6:59 AM CDT Ventricular Rate 68 BPM Atrial Rate 68 BPM P-R Interval 168 ms QRS Duration 118 ms Q-T Interval 440 ms QTC Calculation(Bazett) 467 ms P Sigel 62 degrees R Sigel 68 degrees T Sigel 15 degrees Normal sinus rhythm Possible Inferior infarct , age undetermined Abnormal ECG When compared with ECG of 21-MAY-2018 11:35, Borderline criteria for Inferior infarct are now Present ST now depressed in Inferior leads T wave inversion now evident in Inferior leads Confirmed by MD VILLANUEVA JOSEPH P ([id number]) on 05/27/2018 6:59:09 AM Performing Organization Address [facility] Phone Number GE MUSE * XR chest PA or AP 1 view in dept (05/26/2018 1:30 PM CDT) Narrative Performed At FINAL REPORT GE RIS Chest One view: Reason for exam: Left chest pain, pacemaker placement Comparison Study: Chest x-ray, 05/21/2018 Discussion: A dual-lead cardiac conduction device is in place. Lead tips are located in the right atrium and ventricle. There is no pneumothorax or lead discontinuity. The heart size and pulmonary vascularity are within normal limits. Sternal wires are seen. The lungs are clear. The bones are unremarkable. Impression: Cardiac conduction device, in expected location. No pneumothorax. Signed: Jose Manuel Loredo MD Report Verified Date/Time:05/26/2018 13:48:26 Reading Location: [facility] B1 C013X Ortho Consult Reading Room Procedure Note Interface, External Ris In - 05/26/2018 1:50 PM CDT FINAL REPORT Chest One view: Reason for exam: Left chest pain, pacemaker placement Comparison Study: Chest x-ray, 05/21/2018 Discussion: A dual-lead cardiac conduction device is in place. Lead tips are located in the right atrium and ventricle. There is no pneumothorax or lead discontinuity. The heart size and pulmonary vascularity are within normal limits. Sternal wires are seen. The lungs are clear. The bones are unremarkable. Impression: Cardiac conduction device, in expected location. No pneumothorax. Signed: Jose Manuel Loredo MD Report Verified Date/Time: 05/26/2018 13:48:26 Reading Location: [facility] C013X Ortho Consult Reading Room Performing Organization Address City/State[facility] Phone Number GE RIS * PT/aPTT (05/26/2018 12:51 PM CDT) Only the most recent of 3 results within the time period is included. Protime 14.4 11.7 - 14.7 seconds [facility] INR 1.1 <=5.9 [facility] PTT 28.2 22.5 - 36.0 seconds [facility] Specimen Blood Narrative Performed At RECOMMENDED COUMADIN/WARFARIN INR THERAPY RANGES [facility] STANDARD DOSE: 2.0 - 3.0 Includes: PROPHYLAXIS for venous thrombosis, [facility] systemic embolization; TREATMENT for venous thrombosis and/or pulmonary embolus. HIGH RISK: Target INR is 2.5-3.5 for patients with mechanical heart valves. Performing Organization Address City/[facility] Phone Number [facility] [address] [place] [address] MEDICAL CENTER * CBC with platelet count + automated diff (05/26/2018 12:51 PM CDT) Only the most recent of 5 results within the time period is included. WBC 9.3 3.5 - 10.5 K/L [facility] RBC 4.63 4.63 - 6.08 M/L [facility] Hemoglobin 14.3 13.7 - 17.5 GM/DL [facility] Hematocrit 45.0 40.1 - 51.0 % [facility] MCV 97.2 (H) 79.0 - 92.2 fL [facility] MCH 30.9 25.7 - 32.2 pg [facility] MCHC 31.8 (L) 32.3 - 36.5 GM/DL [facility] RDW 15.4 (H) 11.6 - 14.4 % [facility] Platelets 138 (L) 150 - 450 K/CU MM [facility] MPV 10.6 9.4 - 12.4 fL [facility] nRBC 0 0 - 0 /100 WBC [facility] % Neutros 82 % [facility] % Lymphs 7 % [facility] % Monos 10 % [facility] % Eos 1 % [facility] % Baso 0 % [facility] # Neutros 7.61 (H) 1.78 - 5.38 K/L [facility] # Lymphs 0.67 (L) 1.32 - 3.57 K/L [facility] # Monos 0.88 (H) 0.30 - 0.82 K/L [facility] # Eos 0.05 0.04 - 0.54 K/L [facility] # Baso 0.04 0.01 - 0.08 K/L [facility] Immature 1 0 - 1 % [facility] Granulocytes-Relative [facility] Specimen Blood Performing Organization Address City/[facility] [place] [address] [phone] * Troponin I (05/26/2018 12:51 PM CDT) Only the most recent of 3 results within the time period is included. Troponin I 0.02 0.00 - 0.03 ng/mL [facility] Specimen Blood Narrative Performed At Troponin I (TnI) levels must be interpreted in the context of the presenting [facility] symptoms and the clinical findings. Elevated TnI levels indicate myocardial [facility] damage, but are not specific for ischemic heart disease. Elevated TnI levels are seen in patients with other cardiac conditions (including myocarditis and congestive heart failure), and slight TnI elevations occur in patients with other conditions, including sepsis, renal failure, acidosis, acute neurological disease, and persistent tachyarrhythmia. Performing Organization Address [facility]n Phone Number [place] [phone] [place] [address] * B-type Natriuretic Factor (BNP) (05/26/2018 12:51 PM CDT) BNP 980 (H) 0 - 100 pg/mL [facility] Specimen Blood Performing Organization Address [facility] [place] [address] [phone] * Magnesium (05/26/2018 12:51 PM CDT) Only the most recent of 3 results within the time period is included. Magnesium 1.8 1.6 - 2.6 mg/dL [facility] Specimen Blood Performing Organization Address [facility] [place] [address] [phone] [place] [address] * Creatine Kinase (CK), Total and MB (05/26/2018 12:51 PM CDT) Only the most recent of 3 results within the time period is included. Total CK 57 29 - 200 U/L [facility] CK-MB 3.4 0.0 - 6.6 ng/mL [facility] MB Relative Index 6.0 % [facility] Specimen Blood Narrative Performed At CK-MB Reference Range: [facility] <6.7Normal [facility] 6.7-10.0Borderline >10.0 Abnormal Performing Organization Address City/[facility]/Zipcode Phone Number [facility] [address] [place] [address] [facility] * Basic Metabolic Panel (05/26/2018 12:51 PM CDT) Only the most recent of 5 results within the time period is included. Sodium 145 136 - 145 meq/L [facility] Potassium 3.5 3.5 - 5.1 meq/L [facility] Chloride 109 (H) 98 - 107 meq/L [facility] CO2 24 22 - 29 meq/L [facility] BUN 14 7 - 21 mg/dL [facility] Creatinine 0.80 0.57 - 1.25 mg/dL [facility] Glucose 93 70 - 105 mg/dL [facility] Calcium 9.2 8.4 - 10.2 mg/dL [facility] EGFR 96Comment: ESTIMATED GFR IS mL/min/1.[address] [facility] NOT ACCURATE CREATININE [facility] CLEARANCE IN PREDICTING GLOMERULAR FILTRATION RATE. ESTIMATED GFR IS NOT APPLICABLE FOR DIALYSIS PATIENTS. Specimen Blood Performing Organization Address City/[facility]/Zipcode Phone Number [facility] [address] [place] [address] [facility] * RHYTHM STRIP - SCAN (05/24/2018 10:10 AM CDT) Only the most recent of 3 results within the time period is included. Narrative Performed At * ARRYTHMIA IMPLANT REPORT - SCAN (05/24/2018 10:10 AM CDT) Narrative Performed At * CARDIAC CATH REPORT - SCAN (05/23/2018 5:40 PM CDT) Narrative Performed At * TRANSFUSION SERVICE REPORT - SCAN (05/22/2018 5:51 PM CDT) Narrative Performed At * CBC (Hemogram only) (05/22/2018 4:25 AM CDT) WBC 8.9 3.5 - 10.5 K/L [facility] RBC 4.31 (L) 4.63 - 6.08 M/L [facility] Hemoglobin 13.1 (L) 13.7 - 17.5 GM/DL [facility] Hematocrit 42.4 40.1 - 51.0 % [facility] MCV 98.4 (H) 79.0 - 92.2 fL [facility] MCH 30.4 25.7 - 32.2 pg [facility] MCHC 30.9 (L) 32.3 - 36.5 GM/DL [facility] RDW 15.9 (H) 11.6 - 14.4 % [facility] Platelets 142 (L) 150 - 450 K/CU MM [facility] MPV 10.6 9.4 - 12.4 fL [facility] nRBC 0 0 - 0 /100 WBC [facility] Specimen Blood Performing Organization Address City/State/Zipcode Phone Number [address] [address] [facility] * POC-Glucose meter (05/21/2018 10:27 PM CDT) Only the most recent of 6 results within the time period is included. POC-Glucose Meter 72Comment: TESTED AT [facility] 70 - 110 mg/dL [address] [address] [facility] Specimen Blood Performing Organization Address City/State/Zipcode Phone Number [facility] [address] [place] [address] [facility] * XR chest 1 view portable / bedside (05/21/2018 10:14 PM CDT) Narrative Performed At FINAL REPORT [facility]IS RAD, CHEST, 1 VIEW, NON DEPT INDICATION: s/p EPS/ ICD implant COMPARISON: November 19, 2014 FINDINGS: Portable frontal view of the chest. IMPRESSION: Support Lines: Left subclavian approach dual lead pacer in pulse generator grossly appropriately positioned by radiography. Lungs and pleura: Clear lungs. No effusion. No pneumothorax. Heart and mediastinum: Stable contours. Stable surgical changes. Additional findings: None. Signed: JR Winter Robert MD Report Verified Date/Time:05/21/2018 22:30:23 Reading Location: [address] Reading Room Procedure Note Interface, External Ris In - 05/21/2018 10:32 PM CDT FINAL REPORT RAD, CHEST, 1 VIEW, NON DEPT INDICATION: s/p EPS/ ICD implant COMPARISON: November 19, 2014 FINDINGS: Portable frontal view of the chest. IMPRESSION: Support Lines: Left subclavian approach dual lead pacer in pulse generator grossly appropriately positioned by radiography. Lungs and pleura: Clear lungs. No effusion. No pneumothorax. Heart and mediastinum: Stable contours. Stable surgical changes. Additional findings: None. Signed: JR Winter Robert MD Report Verified Date/Time: 05/21/2018 22:30:23 Reading Location: [address] Reading Room Performing Organization Address City/State/Zipcode Phone Number [facility] * ECHOCARDIOGRAM REPORT - SCAN (05/21/2018 5:20 PM CDT) Narrative Performed At * Transesophageal echo (05/21/2018 1:36 PM CDT) Ejection Fraction [facility] Narrative Performed At Transesophageal Echocardiography Report (ANEESH) [facility] Demographics [facility] Patient NameMega DIETZte of Study05/21/2018 MANDEEP PETERS Gender Male Visit [id number] Race Unknown Number Number Date of 1950 ReferringSeger Lakeisha canales Age 68 year(s) SonographerGiovani Turner MD Procedure Type of Study ANEESH procedure:TRANSESOPHAGEAL ECHO (Routine) Indications:Atrial fibrillation. Clinical History AFIB CAD CHF COPD HTN ANGINA PNEUMONIA Height: 70 inches Weight: 88 kg (194 lbs) BSA: 2.06 m^2 BMI: 27.84 kg/m^2 HR: 78 bpm BP: 160/91 mmHg ANEESH Performed By: the attending and the fellow Summary The left atrial appendage is well visualized, and there is no thrombus within it. CATY ostial outflow velocity ~ .6 cm/s. 0 degrees: Diameter 2 cm, Depth 2.5 cm 47 degrees: Diameter 1.6cm, depth 3.0cm 89 degrees: Diameter 1.7cm, depth 2.7cm 137 degrees: Diameter 2cm, depth 2.6 cm The LAAP has an angulated central axis LA appendage orifice (en face 3D) appears circular . The left ventricle is normal in size, wall thickness, and contractility. No pericardial effusion is visualized. Signature Findings Technical Quality: Technically adequate exam. Rhythm/BP Irregular rhythm during the exam. LeftThe left ventricle is normal in size, wall thickness, and Ventricle contractility. Left Atrium The left atrial appendage is well visualized, and there is no thrombus within it. CATY ostial outflow velocity ~ .6 cm/s. 0 degrees: Diameter 2 cm, Depth 2.5 cm 47 degrees: Diameter 1.6cm, depth 3.0cm 89 degrees: Diameter 1.7cm, depth 2.7cm 137 degrees: Diameter 2cm, depth 2.6 cm The LAAP has an angulated central axis LA appendage orifice (en face 3D) appears circular . Right The right ventricular chamber size and systolic function are Ventricle within normal limits. Right AtriumThere is no right atrial appendage thrombus. Atrial Septum The interatrial septum is intact by 2D echocardiography. There is no flow across it by color Doppler, nor by injection of agitated saline. Aortic ValveNormal tri-leaflet Aortic Valve. There is no aortic stenosis. There is trace aortic regurgitation. Mitral ValveMild MV leaflet thickening. Mild mitral regurgitation. Tricuspid TV structure is normal. Valve A trace of tricuspid regurgitation. Insufficient TR to estimate RVSP. PulmonicPV is not well visualized. Valve No evidence of PV stenosis. No evidence of pulmonary regurgitation. Aorta Aortic root size (SInus of Valsalva diameter) is normal . Proximal ascending aorta size is normal . Grade 3 plaque in the distal aortic arch and descending thoracic aorta. Pericardium No pericardial effusion is visualized. 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 Clinical History AFIB CAD CHF COPD HTN ANGINA PNEUMONIA Height: 70 inches Weight: 88 kg (194 lbs) BSA: 2.06 m^2 BMI: 27.84 kg/m^2 HR: 78 bpm BP: 160/91 mmHg ANEESH Performed By: the attending and the fellow Summary The left atrial appendage is well visualized, and there is no thrombus within it. CATY ostial outflow velocity ~ .6 cm/s. 0 degrees: Diameter 2 cm, Depth 2.5 cm 47 degrees: Diameter 1.6cm, depth 3.0cm 89 degrees: Diameter 1.7cm, depth 2.7cm 137 degrees: Diameter 2cm, depth 2.6 cm The LAAP has an angulated central axis LA appendage orifice (en face 3D) appears circular . The left ventricle is normal in size, wall thickness, and contractility. No pericardial effusion is visualized. Signature Findings Technical Quality: Technically adequate exam. Rhythm/BP Irregular rhythm during the exam. Left The left ventricle is normal in size, wall thickness, and Ventricle contractility. Left Atrium The left atrial appendage is well visualized, and there is no thrombus within it. CATY ostial outflow velocity ~ .6 cm/s. 0 degrees: Diameter 2 cm, Depth 2.5 cm 47 degrees: Diameter 1.6cm, depth 3.0cm 89 degrees: Diameter 1.7cm, depth 2.7cm 137 degrees: Diameter 2cm, depth 2.6 cm The LAAP has an angulated central axis LA appendage orifice (en face 3D) appears circular . Right The right ventricular chamber size and systolic function are Ventricle within normal limits. Right Atrium There is no right atrial appendage thrombus. Atrial Septum The interatrial septum is intact by 2D echocardiography. There is no flow across it by color Doppler, nor by injection of agitated saline. Aortic Valve Normal tri-leaflet Aortic Valve. There is no aortic stenosis. There is trace aortic regurgitation. Mitral Valve Mild MV leaflet thickening. Mild mitral regurgitation. Tricuspid TV structure is normal. Valve A trace of tricuspid regurgitation. Insufficient TR to estimate RVSP. Pulmonic PV is not well visualized. Valve No evidence of PV stenosis. No evidence of pulmonary regurgitation. Aorta Aortic root size (SInus of Valsalva diameter) is normal . Proximal ascending aorta size is normal . Grade 3 plaque in the distal aortic arch and descending thoracic aorta. Pericardium No pericardial effusion is visualized. Performing Organization Address City/State/Zipcode Phone Number [facility] * Type and screen, automated (05/21/2018 10:57 AM CDT) ABO/RH AUTOMATED (BEAKER) O POSITIVE NEXUS [facility] Ab Scrn NEGATIVE [facility] Specimen Blood Performing Organization Address City/[facility]/Zipcode Phone Number [address] [address] [facility] * Prothrombin time/INR (05/21/2018 10:57 AM CDT) Protime 14.1 11.7 - 14.7 seconds [facility] INR 1.1 <=5.9 [facility] Specimen Blood Narrative Performed At RECOMMENDED COUMADIN/WARFARIN INR THERAPY RANGES [facility] STANDARD DOSE: 2.0 - 3.0 Includes: PROPHYLAXIS for venous thrombosis, [facility] systemic embolization; TREATMENT for venous thrombosis and/or pulmonary embolus. HIGH RISK: Target INR is 2.5-3.5 for patients with mechanical heart valves. Performing Organization Address [facility] Phone Number [place] [phone] [place] [address] [facility] * VASCULAR DIAGRAM -SCAN (02/14/2018 3:10 PM CDT) Only the most recent of 2 results within the time period is included. Narrative Performed At * CARDIAC CATH REPORT - SCAN (12/28/2017 7:40 AM MARINE RESOURCE ECONOMIST) Narrative Performed At * Phosphorus (12/27/2017 4:33 AM MARINE RESOURCE ECONOMIST) Only the most recent of 2 results within the time period is included. Phosphorus 2.9 2.3 - 4.7 mg/dL [facility] Specimen Blood - Arm, Right Performing Organization Address City/[facility]/Zipcode Phone Number [facility] [address] [place] [address] [facility] * Hemoglobin A1c (12/27/2017 4:33 AM MARINE RESOURCE ECONOMIST) Only the most recent of 2 results within the time period is included. Hemoglobin A1C 5.8 4.3 - 6.1 % [facility] Specimen Blood - Arm, Right Performing Organization Address City/[facility]/Zipcode Phone Number [facility] [address] [place] [address] * Hepatic function panel (12/27/2017 4:33 AM MARINE RESOURCE ECONOMIST) Only the most recent of 2 results within the time period is included. Protein, Total 5.0 (L) 6.0 - 8.3 gm/dL [facility] Albumin 2.7 (L) 3.5 - 5.0 g/dL [facility] Total Bilirubin 0.3 0.2 - 1.2 mg/dL [facility] Bilirubin, Direct 0.2 0.1 - 0.5 mg/dL [facility] Alkaline Phosphatase 130 40 - 150 U/L [facility] AST 36 (H) 5 - 34 U/L [facility] ALT 30 6 - 55 U/L [facility] Specimen Blood - Arm, Right Performing Organization Address [facility] Phone Number [facility] [address] [place] [address] [facility] * aPTT (12/26/2017 1:14 PM MARINE RESOURCE ECONOMIST) Only the most recent of 2 results within the time period is included. PTT 66.0 (H) 22.5 - 36.0 seconds [facility] Specimen Blood Performing Organization Address City/[facility]/Zipcode Phone Number [facility] [address] [place] [address] [facility] after 09/22/2017 Insurance Payer Benefit Subscriber ID Type Phone Address Plan / Group MEDICARE MEDICARE A xxxxxxxxxx Medicare B MCR SUPPLEMENT/INDIVIDUAL MUTUAL OF xxxxxxxx Medigap FOND DU LAC Advance Directives For more information, please contact: [facility] [address] [place] [address] Date Inactivated Comments Code Status Date Activated 05/22/2018 1:51 PM Full Code 05/21/2018 9:59 AM This code status was determined by: Patient 12/27/2017 1:10 PM Full Code 12/25/2017 5:55 PM This code status was determined by: Patient 11/24/2014 6:20 PM Full Code 11/17/2014 10:02 AM This code status was determined by: Patient 08/18/2014 2:20 PM Full Code 08/17/2014 10:49 AM This code status was determined by: Patient 05/02/2013 7:24 PM All possible means of support including;cardiac massage, mechanical ventilation, and defibrillation will be used to support life. Code ONE 05/02/2013 8:52 AM
[2018-09-23 11:04] LABS: BASOPHILS % 0.2 % (0.0-1.0); EOSINOPHILS % 0.2 % (0.0-6.0); HEMATOCRIT 34.8 % (38.2-49.6); HEMOGLOBIN 10.9 g/dL (14.0-18.0); LYMPHOCYTES # (AUTO) 0.4 (1.0-3.2); LYMPHOCYTES % 3.5 % (18.0-39.1); MEAN CORPUSCULAR HEMOGLOBIN 29.7 pg (28-32); MEAN CORPUSCULAR HGB CONC 31.3 g/dL (31-35); MEAN CORPUSCULAR VOLUME 94.8 fL (81-99); MONOCYTES # (AUTO) 1.5 (0.2-0.8); MONOCYTES % 12.2 % (4.4-11.3); NEUTROPHILS # (AUTO) 9.9 (2.1-6.9); NEUTROPHILS % 83.1 % (38.7-80.0); PLATELET COUNT 135 x10e3/uL (140-360); RED BLOOD COUNT 3.67 x10e6/uL (4.3-5.7); RED CELL DISTRIBUTION WIDTH 17.2 % (11.7-14.4)
[2018-09-23 11:13] LABS: INR 1.16; PROTHROMBIN TIME 15.8 seconds (11.9-14.5)
[2018-09-23 11:14] LABS: PARTIAL THROMBOPLASTIN TIME 32.8 seconds (23.8-35.5)
[2018-09-23 11:26] LABS: ALANINE AMINOTRANSFERASE 51 IU/L (0-55); ALBUMIN 2.8 g/dL (3.5-5.0); ALKALINE PHOSPHATASE 147 IU/L (40-150); ANION GAP 13.2 mmol/L (8-16); BLOOD UREA NITROGEN 21 mg/dL (7-26); BUN/CREATININE RATIO 23 (6-25); CALCIUM 8.9 mg/dL (8.4-10.2); CARBON DIOXIDE 23 mmol/L (22-29); CHLORIDE 111 mmol/L (98-107); CREATINE KINASE 129 IU/L (30-200); CREATININE, SERUM 0.92 mg/dL (0.72-1.25); EST GLOMERULAR FILTRATION RATE > 60 ML/MIN (60-); GLUCOSE 160 mg/dL (74-118); POTASSIUM 4.2 mmol/L (3.5-5.1); SODIUM 143 mmol/L (136-145)
[2018-09-23] MEDS ORDERED: LEVOFLOXACIN 500MG/D5W 100ML 100 ML IV SCH (11:30)
[2018-09-23] MEDS: METHYLPREDNISOLONE SOD SUCC 125 MG/2ML VIAL IV SCH ×2 (11:55→20:54)
[2018-09-23] MEDS ORDERED: ASPIRIN 81 MG CHEW TAB PO ONE (12:00)
[2018-09-23] MEDS ORDERED: ONDANSETRON HCL INJ 2 MG/ML VIAL IV PRN (12:30)
[2018-09-23] MEDS ORDERED: NITROGLYCERIN 0.4 MG SUBL SL PRN (12:30)
[2018-09-23] MEDS ORDERED: ENOXAPARIN INJ 80 MG/0.8 ML SYR SC SCH (12:30)
--- NOTE | 2018-09-23 12:53 | Diagnostic Imaging Report ---
EXAMINATION: PA and lateral views of the chest. COMPARISON: 06/21/2018 CLINICAL HISTORY: Cough DISCUSSION: The lungs remain well-inflated. Interval development of pulmonary venous congestion and small bilateral pleural effusions, right larger than left, along with with linear opacity in the lung bases likely passive atelectasis. Stable cardiomediastinal contour with multiple median sternotomy wires and left subclavian approach implantable cardiac device. Coronary artery stents. Right internal jugular central venous catheter has been removed. No acute osseous abnormalities. IMPRESSION: Interval development of pulmonary venous congestion, small bilateral pleural effusions and bibasilar subsegmental atelectasis Signed by: Dr. David Restrepo M.D. on 09/23/2018 12:49 PM
[2018-09-23] MEDS ORDERED: ASPIRIN 325 MG TAB EC PO SCH (13:00)
--- OUTSIDE RECORDS SUMMARY | 2018-09-23 13:28 | XMS REPORT | Clinical Summary ---
Author Author ZAYDA [facility] Organization [facility] Address Unknown Phone Unavailable Care Team Providers Care Supply Chain Tech Name Role Phone Sergio Antoine PCP Byron [...] obstructive cardiomyopathy (HCC) 05/26/2018 Emergency Emergency Medicine Reese Cuevas MD 05/21/2018 Anesthesia Event Lakeisha Hurt MD EPS & ABLATION 05/21/2018 Surgery Lakeihsa Hurt MD Atrial fibrillation, unspecified type (HCC) [...] CDT Oxygen Saturation 96% 12/26/2017 11:14 AM BAG MACHINE SET UP OPERATOR Inhaled Oxygen 21% Concentration 05/26/2018 12:15 PM CDT Weight 83 kg (183 lb) 05/26/2018 12:15 PM CDT Height 177.8 cm (5' 10") 05/26/2018 12:15 PM CDT Body Mass Index 26.26 Plan of Treatment Health Maintenance Due Date Last Done Comments INFLUENZA VACCINE 07/22/2018 Implants Device Identifier Shelf Expiration Date Model / Serial / Lot Implanted Type Area Manufactur er 09/04/2019 [id number] / [id number] / REF: [id number] Evera Mri Xt Dr An [id number] ICD N/A: Chest [employer] Implanted: Qty: 1 on 05/21/2018 by Lakeisha Hurt MD 04/02/2020 [id number] / [id number] / [employer] Quattro Secure S Mri Sure Pacemaker N/A: Heart [employer] Scan [id number] Lead Implanted: Qty: 1 on 05/21/2018 by Lakeisha Hurt MD 04/22/2020 [id number] / [id number] / Capsurefixd Mri Surescan 4076-45 Cm Pacemaker [...] ms QTC Calculatio n(Bazett) 467 ms P Tyler 62 degrees R Tyler 68 degrees T Tyler 15 degrees Normal sinus rhythm Possible Inferior [...] RHYTHM STRIP - SCAN 12/28/2017 1:00 PM BAG MACHINE SET UP OPERATOR CARDIAC CATH REPORT - 12/28/2017 SCAN 7:40 AM BAG MACHINE SET UP OPERATOR POCT-GLUCOSE METER Routine 12/27/2017 7:08 AM BAG MACHINE SET UP OPERATOR CBC W/PLT COUNT & AUTO Routine 12/27/2017 DIFFERENTIAL 4:33 AM BAG MACHINE SET UP OPERATOR CBC W/PLT COUNT & AUTO Routine 12/27/2017 DIFFERENTIAL 4:33 AM BAG MACHINE SET UP OPERATOR PHOSPHORUS Routine 12/27/2017 4:33 AM BAG MACHINE SET UP OPERATOR MAGNESIUM Routine 12/27/2017 4:33 AM BAG MACHINE SET UP OPERATOR PT/APTT Routine 12/27/2017 4:33 AM BAG MACHINE SET UP OPERATOR HEMOGLOBIN A1C Routine 12/27/2017 4:33 AM BAG MACHINE SET UP OPERATOR HEPATIC FUNCTION PANEL Routine 12/27/2017 4:33 AM BAG MACHINE SET UP OPERATOR BASIC METABOLIC PANEL (7) Routine 12/27/2017 4:33 AM BAG MACHINE SET UP OPERATOR POCT-GLUCOSE METER Routine 12/26/2017 9:25 PM BAG MACHINE SET UP OPERATOR L CATH & CORONARY ANGIOS 12/26/2017 AFIB 3:09 PM BAG MACHINE SET UP OPERATOR CAD Case Notes ROBERT APPROVED POSS PCI APTT Routine 12/26/2017 1:14 PM BAG MACHINE SET UP OPERATOR POCT-GLUCOSE METER Routine 12/26/2017 11:20 AM BAG MACHINE SET UP OPERATOR POCT-GLUCOSE METER Routine 12/26/2017 7:40 AM BAG MACHINE SET UP OPERATOR ECG 12-LEAD Routine 12/26/2017 5:40 AM BAG MACHINE SET UP OPERATOR Procedure Note - Interface, External Ris In - 12/26/2017 7:00 AM BAG MACHINE SET UP OPERATOR Ventricula r Rate 89 BPM Atrial Rate 89 BPM P-R Interval 158 ms QRS Duration 116 ms Q-T Interval 384 ms QTC Calculatio n(Bazett) 467 ms P Tyler 59 degrees R Tyler 77 degrees T Tyler 239 degrees Normal sinus rhythm Possible Left [...] Present ECG 12-LEAD Routine 12/26/2017 5:40 AM BAG MACHINE SET UP OPERATOR CBC W/PLT COUNT & AUTO Routine 12/26/2017 DIFFERENTIAL 4:57 AM BAG MACHINE SET UP OPERATOR CBC W/PLT COUNT & AUTO Routine 12/26/2017 DIFFERENTIAL 4:57 AM BAG MACHINE SET UP OPERATOR PHOSPHORUS Routine 12/26/2017 4:57 AM BAG MACHINE SET UP OPERATOR MAGNESIUM Routine 12/26/2017 4:57 AM BAG MACHINE SET UP OPERATOR PT/APTT Routine 12/26/2017 4:57 AM BAG MACHINE SET UP OPERATOR HEMOGLOBIN A1C Routine 12/26/2017 4:57 AM BAG MACHINE SET UP OPERATOR HEPATIC FUNCTION PANEL Routine 12/26/2017 4:57 AM BAG MACHINE SET UP OPERATOR BASIC METABOLIC PANEL (7) Routine 12/26/2017 4:57 AM BAG MACHINE SET UP OPERATOR CREATINE KINASE (CK), Routine 12/26/2017 TOTAL AND MB 12:41 AM BAG MACHINE SET UP OPERATOR TROPONIN I Routine 12/26/2017 12:41 AM BAG MACHINE SET UP OPERATOR POCT-GLUCOSE METER Routine 12/25/2017 10:47 PM BAG MACHINE SET UP OPERATOR APTT Routine 12/25/2017 8:27 PM BAG MACHINE SET UP OPERATOR CBC W/PLT COUNT & AUTO Routine 12/25/2017 DIFFERENTIAL 5:25 PM BAG MACHINE SET UP OPERATOR CREATINE KINASE (CK), Routine 12/25/2017 TOTAL AND MB 5:25 PM BAG MACHINE SET UP OPERATOR TROPONIN I Routine 12/25/2017 5:25 PM BAG MACHINE SET UP OPERATOR CBC W/PLT COUNT & AUTO Routine 12/25/2017 DIFFERENTIAL 5:25 PM BAG MACHINE SET UP OPERATOR after 09/22/2017 Results * ED ECG Interpretation [...] PM CDT) Narrative Performed At FINAL REPORT [facility] CT scan of the left upper extremity. [...] MD Report Verified Date/Time:05/26/2018 15:27:47 Reading Location: [address] Transitional Reading Room Procedure Note Interface, [...] Report Verified Date/Time: 05/26/2018 15:27:47 Reading Location: [address] Transitional Reading Room Performing Organization Address [facility] Phone Number GE RIS * ECG 12 lead (05/26/2018 1:40 PM CDT) Only the most recent of 3 results within the time period is included. Narrative Performed At Ventricular Rate 68 BPM GE MUSE Atrial Rate 68 BPM P-R Interval 168 ms QRS Duration 118 ms Q-T Interval 440 ms QTC Calculation(Bazett) 467 ms P Tyler 62 degrees R Tyler 68 degrees T Tyler 15 degrees Normal sinus rhythm Possible Inferior infarct , age undetermined Abnormal ECG When compared with ECG of 21-MAY-2018 11:35, Borderline criteria for Inferior infarct are now Present ST now depressed in Inferior leads T wave inversion now evident in Inferior leads Confirmed by MD VILLANUEVA JOSEPH P ([id number]) on 05/27/2018 6:59:09 AM Procedure Note Interface, External Ris In - 05/27/2018 6:59 AM CDT Ventricular Rate 68 BPM Atrial Rate 68 BPM P-R Interval 168 ms QRS Duration 118 ms Q-T Interval 440 ms QTC Calculation(Bazett) 467 ms P Tyler 62 degrees R Tyler 68 degrees T Tyler 15 degrees Normal sinus rhythm Possible Inferior infarct , age undetermined Abnormal ECG When compared with ECG of 21-MAY-2018 11:35, Borderline criteria for Inferior infarct are now Present ST now depressed in Inferior leads T wave inversion now evident in Inferior leads Confirmed by MD VILLANUEVA JOSEPH P ([id number]) on 05/27/2018 6:59:09 AM Performing Organization Address [facility] Phone Number GE MUSE * XR chest [...] MD Report Verified Date/Time:05/26/2018 13:48:26 Reading Location: [facility] B1 C013X Ortho Consult Reading Room Procedure [...] 05/26/2018 13:48:26 Reading Location: [facility] C013X Ortho Consult Reading Room Performing Organization Address City/State/[facility] Phone Number GE RIS * PT/aPTT (05/26/2018 12:51 PM CDT) Only the most recent of 3 results within the time period is included. Protime 14.4 11.7 - 14.7 seconds [facility] INR 1.1 <=5.9 [facility] PTT 28.2 22.5 - 36.0 seconds [facility] Specimen Blood Narrative Performed At RECOMMENDED COUMADIN/WARFARIN INR THERAPY RANGES [facility] STANDARD DOSE: 2.0 - 3.0 Includes: PROPHYLAXIS for venous thrombosis, [facility] systemic embolization; TREATMENT for venous thrombosis and/or pulmonary embolus. HIGH RISK: Target INR is 2.5-3.5 for patients with mechanical heart valves. Performing Organization Address City/[facility] Phone Number [facility] [address] [place] [address] MED[facility]ENTER * CBC with platelet count + automated diff (05/26/2018 12:51 PM CDT) Only the most recent of 5 results within the time period is included. WBC 9.3 3.5 - 10.5 K/L [facility] RBC 4.63 4.63 - 6.08 M/L [facility] Hemoglobin 14.3 13.7 - 17.5 GM/DL [facility] Hematocrit 45.0 40.1 - 51.0 % [facility] MCV 97.2 (H) 79.0 - 92.2 fL [facility] MCH 30.9 25.7 - 32.2 pg [facility] MCHC 31.8 (L) 32.3 - 36.5 GM/DL [facility] RDW 15.4 (H) 11.6 - 14.4 % [facility] Platelets 138 (L) 150 - 450 K/CU MM [facility] MPV 10.6 9.4 - 12.4 fL [facility] nRBC 0 0 - 0 /100 WBC [facility] % Neutros 82 % [facility] % Lymphs 7 % [facility] % Monos 10 % [facility] % Eos 1 % [facility] % Baso 0 % [facility] # Neutros 7.61 (H) 1.78 - 5.38 K/L [facility] # Lymphs 0.67 (L) 1.32 - 3.57 K/L [facility] # Monos 0.88 (H) 0.30 - 0.82 K/L [facility] # Eos 0.05 0.04 - 0.54 K/L [facility] # Baso 0.04 0.01 - 0.08 K/L [facility] Immature 1 0 - 1 % [facility] Granulocytes-Relative [facility] Specimen Blood Performing Organization Address City/[facility] [place] [address] [phone] [address] * Troponin I (05/26/2018 12:51 PM CDT) Only the most recent of 3 results within the time period is included. Troponin I 0.02 0.00 - 0.03 ng/mL [facility] Specimen Blood Narrative Performed At Troponin I (TnI) levels must be interpreted in the context of the presenting [facility] symptoms and the clinical findings. Elevated TnI levels indicate myocardial [facility] damage, but are not specific for ischemic heart disease. Elevated TnI levels are seen in patients with other cardiac conditions (including myocarditis and congestive heart failure), and slight TnI elevations occur in patients with other conditions, including sepsis, renal failure, acidosis, acute neurological disease, and persistent tachyarrhythmia. Performing Organization Address [facility] Phone Number [place] [phone] [place] [address] * B-type Natriuretic Factor (BNP) (05/26/2018 12:51 PM CDT) BNP 980 (H) 0 - 100 pg/mL [facility] Specimen Blood Performing Organization Address [facility] [place] [address] [phone] * Magnesium (05/26/2018 12:51 PM CDT) Only the most recent of 3 results within the time period is included. Magnesium 1.8 1.6 - 2.6 mg/dL [facility] Specimen Blood Performing Organization Address [facility] [place] [phone] [place] [address] * Creatine Kinase (CK), Total and MB (05/26/2018 12:51 PM CDT) Only the most recent of 3 results within the time period is included. Total CK 57 29 - 200 U/L [facility] CK-MB 3.4 0.0 - 6.6 ng/mL [facility] MB Relative Index 6.0 % [facility] Specimen Blood Narrative Performed At CK-MB Reference Range: [facility] <6.7Normal [facility] 6.7-10.0Borderline >10.0 Abnormal Performing Organization Address City/[facility]/Zipcode Phone Number [facility] [address] [place] [address] [facility] * Basic Metabolic Panel (05/26/2018 12:51 PM CDT) Only the most recent of 5 results within the time period is included. Sodium 145 136 - 145 meq/L [facility] Potassium 3.5 3.5 - 5.1 meq/L [facility] Chloride 109 (H) 98 - 107 meq/L [facility] CO2 24 22 - 29 meq/L [facility] BUN 14 7 - 21 mg/dL [facility] Creatinine 0.80 0.57 - 1.25 mg/dL [facility] Glucose 93 70 - 105 mg/dL [facility] Calcium 9.2 8.4 - 10.2 mg/dL [facility] EGFR 96Comment: ESTIMATED GFR IS mL/min/1.73 sq m [facility] NOT ACCURATE CREATININE [facility] CLEARANCE IN PREDICTING GLOMERULAR FILTRATION RATE. ESTIMATED GFR IS NOT APPLICABLE FOR DIALYSIS PATIENTS. Specimen Blood Performing Organization Address City/[facility]/Zipcode Phone Number [facility] [address] [place] [address] [facility] * RHYTHM STRIP - SCAN (05/24/2018 10:10 [...] CDT) WBC 8.9 3.5 - 10.5 K/L [facility] RBC 4.31 (L) 4.63 - 6.08 M/L [facility] Hemoglobin 13.1 (L) 13.7 - 17.5 GM/DL [facility] Hematocrit 42.4 40.1 - 51.0 % [facility] MCV 98.4 (H) 79.0 - 92.2 fL [facility] MCH 30.4 25.7 - 32.2 pg [facility] MCHC 30.9 (L) 32.3 - 36.5 GM/DL [facility] RDW 15.9 (H) 11.6 - 14.4 % [facility] Platelets 142 (L) 150 - 450 K/CU MM [facility] MPV 10.6 9.4 - 12.4 fL [facility] nRBC 0 0 - 0 /100 WBC [facility] Specimen Blood Performing Organization Address City/State/Zipcode Phone Number [address] [address] [facility] * POC-Glucose meter (05/21/2018 10:27 PM CDT) Only the most recent of 6 results within the time period is included. POC-Glucose Meter 72Comment: TESTED AT [facility] 70 - 110 mg/dL [address] [address] [facility] Specimen Blood Performing Organization Address City/State/Zipcode Phone Number Z[facility] [address] [place] [address] [facility] * XR chest 1 view portable [...] MD Report Verified Date/Time:05/21/2018 22:30:23 Reading Location: [address] Reading Room Procedure Note Interface, External [...] Report Verified Date/Time: 05/21/2018 22:30:23 Reading Location: [address] Reading Room Performing Organization Address City/State/Zipcode Phone Number GE RIS * ECHOCARDIOGRAM REPORT - SCAN (05/21/2018 5:20 PM CDT) Narrative Performed At * Transesophageal echo (05/21/2018 1:36 PM CDT) Ejection Fraction [facility] MKCKESSON CPACS Narrative Performed At Transesophageal Echocardiography Report (ANEESH) [facility] Demographics [facility] Patient NameMega DIETZte of Study05/21/2018 MANDEEP PETERS Gender Male Visit [id number] Race Unknown Number Number Date of 1950 [...] 05/21/2018 MANDEEP PETERS Gender Male Visit Number [id number] Race Unknown Room Number Number Date of 1950 Referring Blu Osorio MD Physician Age 68 year(s) Observatory Director Giovani Higgins Interpreting Saran Jackson MD Procedure [...] AM CDT) ABO/RH AUTOMATED (BEAKER) O POSITIVE [facility] Ab Scrn NEGATIVE [facility] Specimen Blood Performing Organization Address City/[facility]/Zipcode Phone Number [address] [address] [facility] * Prothrombin time/INR (05/21/2018 10:57 AM CDT) Protime 14.1 11.7 - 14.7 seconds [facility] INR 1.1 <=5.9 [facility] Specimen Blood Narrative Performed At RECOMMENDED COUMADIN/WARFARIN INR THERAPY RANGES [facility] STANDARD DOSE: 2.0 - 3.0 Includes: PROPHYLAXIS for venous thrombosis, [facility] systemic embolization; TREATMENT for venous thrombosis and/or pulmonary embolus. HIGH RISK: Target INR is 2.5-3.5 for patients with mechanical heart valves. Performing Organization Address [facility] Phone Number [place] [phone] [place] [address] [facility] * VASCULAR DIAGRAM -SCAN (02/14/2018 3:10 PM CDT) Only the most recent of 2 results within the time period is included. Narrative Performed At * CARDIAC CATH REPORT - SCAN (12/28/2017 7:40 AM BAG MACHINE SET UP OPERATOR) Narrative Performed At * Phosphorus (12/27/2017 4:33 AM BAG MACHINE SET UP OPERATOR) Only the most recent of 2 results within the time period is included. Phosphorus 2.9 2.3 - 4.7 mg/dL [facility] Specimen Blood - Arm, Right Performing Organization Address City/[facility]/Zipcode Phone Number [facility] [address] [place] [address] [facility] * Hemoglobin A1c (12/27/2017 4:33 AM BAG MACHINE SET UP OPERATOR) Only the most recent of 2 results within the time period is included. Hemoglobin A1C 5.8 4.3 - 6.1 % [facility] Specimen Blood - Arm, Right Performing Organization Address City/[facility]/Zipcode Phone Number [facility] [address] [place] [address] * Hepatic function panel (12/27/2017 4:33 AM BAG MACHINE SET UP OPERATOR) Only the most recent of 2 results within the time period is included. Protein, Total 5.0 (L) 6.0 - 8.3 gm/dL [facility] Albumin 2.7 (L) 3.5 - 5.0 g/dL [facility] Total Bilirubin 0.3 0.2 - 1.2 mg/dL [facility] Bilirubin, Direct 0.2 0.1 - 0.5 mg/dL [facility] Alkaline Phosphatase 130 40 - 150 U/L [facility] AST 36 (H) 5 - 34 U/L [facility] ALT 30 6 - 55 U/L [facility] Specimen Blood - Arm, Right Performing Organization Address [facility] Phone Number [facility] [address] [place] [address] [facility] * aPTT (12/26/2017 1:14 PM BAG MACHINE SET UP OPERATOR) Only the most recent of 2 results within the time period is included. PTT 66.0 (H) 22.5 - 36.0 seconds [facility] Specimen Blood Performing Organization Address City/[facility]/Zipcode Phone Number [facility] [address] [place] [address] [facility] after 09/22/2017 Insurance Payer Benefit Subscriber ID Type Phone Address Plan / Group MEDICARE MEDICARE A xxxxxxxxxx Medicare B MCR SUPPLEMENT/INDIVIDUAL MUTUAL OF xxxxxxxx [employer] KAIBAB Advance Directives For more information, please contact: [facility] [address] [place] [address] Date Inactivated Comments Code Status [...]
[2018-09-23] MEDS ORDERED: LEVALBUTEROL HCL SOLN NEBU 0.63 MG/3 ML NEB INH PRN (14:00)
[2018-09-23 14:32] LABS: THYROID STIMULATING HORMONE 1.585 uIU/mL (0.350-4.940)
[2018-09-23] MEDS: CEFTRIAXONE SOD 1 GM VIAL IV SCH ×2 (15:03→20:53)
--- NOTE | 2018-09-23 15:48 | Consultation ---
DATE OF CONSULTATION: September 23, 2018 REQUESTING PHYSICIAN: Dr. Hali Cadena REASON FOR CONSULT: CHF, elevated troponin. HISTORY OF PRESENT ILLNESS: Mr. Duncan is a 68-year-old gentleman with a past medical history as listed below. He presented with complaint of shortness of breath. The patient reportedly has been getting worsening shortness of breath over the last couple of weeks. It got so bad that he decided to come to the hospital. The patient states that he has had chronic shortness of breath. He has COPD and CHF. The patient has some chest tightness when he takes a deep breath. Does have chronic left leg edema. He states after a vein was removed for his bypass, his left leg has been swollen. He usually wears compression stockings but has stopped it for the last few days. The patient has smoked heavily in the past, but reportedly quit about 25 years back and then restarted about a year back. He smokes a pack a day but has not smoked in the last couple of weeks. The patient has had CABG and ICD placement. He reportedly was told to have bulla infection a few weeks after his ICD placement. Temperature was 106 at that time. At the current time, he denies any fever. Has some mild cough. No expectoration. REVIEW OF SYMPTOMS CONSTITUTIONAL: Has fatigue and weakness. HEENT: No headache, blurring of vision, seizure or syncope. CARDIOVASCULAR: The patient has chest tightness especially when he takes a deep breath. Has dyspnea, some orthopnea. Has left leg edema. RESPIRATORY: Has cough. No fever or expectoration. GI: No abdominal pain, vomiting or diarrhea. : No dysuria, frequency, incontinence. ALLERGIES: ALBUTEROL APPARENTLY MAKES HIS HEART RATE GO UP. SOCIAL HISTORY: He used to smoke heavily in the past, quit about 25 years back. Again started smoking about a year back and smokes a pack per day. Quit drinking about 30 years back. MEDICATIONS: See list. PAST MEDICAL HISTORY 1. History of CAD, status post CABG about 4 years back at [facility]. Prior to that, he apparently had multiple stents placed. He states he had right coronary artery perforation and then was taken to CABG. 2. History of CHF. 3. History of ICD placement about 4 months back at [facility]. 4. History of bulla infection apparently about 2 weeks after his ICD implantation. 5. History of hypertension. 6. History of atrial fibrillation. 7. History of COPD. FAMILY HISTORY: Noncontributory. PHYSICAL EXAMINATION GENERAL: Moderately built and nourished gentleman, alert and oriented, not in any obvious distress. VITALS: Heart rate 107, blood pressure 105/69, respiratory rate 20, temperature 98. HEENT: Atraumatic. NECK: No JVD, bruit, thyromegaly, or lymphadenopathy. CARDIOVASCULAR: The 1st and 2nd heart sounds are heard. A 2/6 systolic murmur is heard at the left sternal border. CHEST: Decreased air entry at the bases. Diffuse scattered wheezes. ICD generator in left upper chest. ABDOMEN: Soft and nontender. EXTREMITIES: 2+ edema of his left lower extremity. No edema of his right lower extremity. LABS: WBC is 11.8; hemoglobin 10.8; hematocrit 34.8; platelets 135,000. Sodium 142, potassium 4.2, chloride 111, BUN 21, creatinine 0.9, glucose 160. Total bili 0.6, AST 58, ALT 51, alk phos 147. Troponin is 3.3. BNP is 1330. Chest x-ray: Interval development of pulmonary venous congestion, small bilateral pleural effusions, bibasilar subsegmental atelectasis. IMPRESSION 1. Wyn-HY-zuxcaycaj myocardial infarction. 2. Congestive heart failure. 3. Chronic obstructive pulmonary disease. 4. Coronary artery disease with history of coronary artery bypass graft and stent placement. 5. History of implantable cardioverter-defibrillator placement. 6. History of hypertension. 7. History of tobacco use. 8. Thrombocytopenia. 9. Anemia. PLAN 1. Continue to follow serial cardiac enzymes. 2. Get echocardiogram to assess LV function and valvular function. 3. Treat him with aspirin, nitrates, statins, beta blockers, Lovenox. 4. The patient reportedly was on Eliquis at home, will hold his Eliquis. 5. Treatment of COPD as indicated. 6. Further cardiac workup depending on clinical course. 7. I discussed my impression and plan of management with the patient and his family, and they understand. As always, I appreciate and thank you very much for your referrals. Job#: [id number]
[2018-09-23] MEDS: METOPROLOL TARTRATE 25 MG TAB PO SCH (17:45)
[2018-09-23] MEDS: POTASSIUM CHLORIDE 10MEQ EA PO SCH (17:45)
[2018-09-23] MEDS: FUROSEMIDE INJ 10 MG/ML 4 ML VIAL IV SCH (17:47)
[2018-09-23] MEDS: NITROGLYCERIN 2% OINT 1 GM PKT TOP SCH ×2 (18:00→23:58)
[2018-09-23] MEDS: MORPHINE SULFATE 2 MG/ML SYR IV PRN ×2 (20:00→23:36)
[2018-09-23] MEDS: ATORVASTATIN 20 MG TAB PO SCH (20:54)
[2018-09-23] MEDS ORDERED: ENOXAPARIN SOD INJ 60 MG/0.6 ML SYR SC SCH (21:00)
[2018-09-23 21:01] LABS: CREATINE KINASE MB 8.1 ng/mL (0-5.0)
[2018-09-23] MEDS: LEVALBUTEROL HCL SOLN NEBU 0.63 MG/3 ML NEB INH PRN (21:30)
[2018-09-24] VITALS (36 sets, daily range): BP systolic 83–116; BP diastolic 53–81
[2018-09-24] MEDS: LEVALBUTEROL HCL SOLN NEBU 0.63 MG/3 ML NEB INH PRN ×5 (01:30→18:50)
[2018-09-24 04:39] LABS: BASOPHILS % 0.1 % (0.0-1.0); HEMATOCRIT 31.9 % (38.2-49.6); HEMOGLOBIN 10.1 g/dL (14.0-18.0); LYMPHOCYTES # (AUTO) 0.3 (1.0-3.2); LYMPHOCYTES % 4.4 % (18.0-39.1); MEAN CORPUSCULAR HEMOGLOBIN 29.4 pg (28-32); MEAN CORPUSCULAR HGB CONC 31.7 g/dL (31-35); MONOCYTES # (AUTO) 0.3 (0.2-0.8); MONOCYTES % 4.1 % (4.4-11.3); NEUTROPHILS # (AUTO) 6.6 (2.1-6.9); NEUTROPHILS % 90.4 % (38.7-80.0); PLATELET COUNT 130 x10e3/uL (140-360); RED BLOOD COUNT 3.43 x10e6/uL (4.3-5.7); RED CELL DISTRIBUTION WIDTH 16.9 % (11.7-14.4)
[2018-09-24 05:57] LABS: ANION GAP 14.6 mmol/L (8-16); BLOOD UREA NITROGEN 27 mg/dL (7-26); BUN/CREATININE RATIO 29 (6-25); CALCIUM 9.1 mg/dL (8.4-10.2); CARBON DIOXIDE 25 mmol/L (22-29); CHLORIDE 110 mmol/L (98-107); CREATININE, SERUM 0.93 mg/dL (0.72-1.25); EST GLOMERULAR FILTRATION RATE > 60 ML/MIN (60-); GLUCOSE 131 mg/dL (74-118); SODIUM 144 mmol/L (136-145)
[2018-09-24] MEDS: NITROGLYCERIN 2% OINT 1 GM PKT TOP SCH ×2 (05:59→12:00)
[2018-09-24 06:04] LABS: POTASSIUM 5.6 mmol/L (3.5-5.1)
[2018-09-24 07:41] LABS: CREATINE KINASE MB 11.1 ng/mL (0-5.0)
[2018-09-24] MEDS ORDERED: SOD POLYSTYRENE SULFONATE SUSP 15 GM/60 ML BTL PO ONE (08:00)
[2018-09-24] MEDS: FUROSEMIDE INJ 10 MG/ML 4 ML VIAL IV SCH ×2 (08:31→17:19)
[2018-09-24] MEDS: POTASSIUM CHLORIDE 10MEQ EA PO SCH ×2 (08:31→17:00)
[2018-09-24] MEDS: METHYLPREDNISOLONE SOD SUCC 125 MG/2ML VIAL IV SCH ×2 (08:32→21:03)
[2018-09-24] MEDS: ENOXAPARIN INJ 80 MG/0.8 ML SYR SC SCH ×2 (08:32→21:03)
[2018-09-24] MEDS: CEFTRIAXONE SOD 1 GM VIAL IV SCH ×2 (08:50→21:03)
[2018-09-24] MEDS ORDERED: ASPIRIN 325 MG TAB PO SCH (09:00)
[2018-09-24] MEDS ORDERED: LISINOPRIL 2.5 MG TAB PO SCH ×2 (09:00→21:00)
[2018-09-24] MEDS: METOPROLOL TARTRATE 25 MG TAB PO SCH ×2 (09:00→15:50)
[2018-09-24] MEDS ORDERED: FENTANYL 50 MCG/HR PATCH TD SCH ×2 (10:30→12:00)
[2018-09-24] MEDS: MORPHINE SULFATE INJ 4 MG/ML INJ IV PRN ×2 (13:39→20:40)
--- NOTE | 2018-09-24 14:07 | History and Physical ---
This is a 68-year-old male patient presented to the emergency room with complaint of shortness of breath. HISTORY OF PRESENT ILLNESS: Mr. Devon Duncan is a 68-year-old male patient who was being presented to the emergency room with shortness of breath and patient was seen here with severe shortness of breath, just walking, transferred from the bed to chair. That happened yesterday and came to the ER. Patient was having some back pain and patient was getting physical therapy and he was related the intrascapular pain with his therapy, but then patient had pain relieved with nitroglycerin and he felt better and patient had recent outpatient cardiology checkup by Dr. Kramer and patient was having some cough and congestion for the last few days over the weekend and then patient had severe shortness of breath and patient had URI symptoms, but patient has no fever. PAST MEDICAL HISTORY: Patient has a significant history of coronary artery disease, coronary artery bypass surgery, and patient was suppose to be scheduled for the Watchman procedure. Patient has COPD, chronic back pain, AFib, anemia, anxiety, GERD. PAST SURGICAL HISTORY: History of pacemaker, bypass surgery, left shoulder surgery, back surgery, and angioplasties in the past. SOCIAL HISTORY: Patient has a history of smoker and has had quit recently. Denies alcohol. ALLERGIES: PATIENT IS ALLERGIC TO ALBUTEROL. REVIEW OF SYSTEMS: Cough, shortness of breath, wheezing. PHYSICAL EXAMINATION VITAL SIGNS: Temperature 98, pulse rate 88, respiration rate 20, blood pressure 110/80. HEENT: Normocephalic, atraumatic. NECK: No JVD. LUNGS: Bilateral equal air entry. Bilateral rhonchi present. HEART: S1, S2. Regular systolic murmur present. ABDOMEN: Soft. Bowel sounds present. NEUROLOGICAL: No focal neurological deficit. ADMITTING IMPRESSION/DIAGNOSES 1. Acute non-ST myocardial infarction. 2. Coronary artery disease. 3. Atrial fibrillation. 4. History of coronary artery bypass surgery. 5. Diastolic congestive heart failure. 6. Chronic obstructive pulmonary disease. 7. Chronic back pain. 8. Diabetes mellitus. 9. Hypertension. 10. Anxiety. PLAN: Patient will be admitted with above diagnoses. In the intensive care unit, cardiology consultation done by Dr. Ramirez. Patient will be treated with morphine, Lovenox, aspirin, metoprolol, and Solu-Medrol for COPD exacerbation. Job#: [id number] [facility]
--- NOTE | 2018-09-24 14:40 | Discharge Summary ---
TRANSFER SUMMARY He is a 68-year-old male patient just admitted yesterday afternoon with complaint of shortness of breath and patient was ruled in for acute non-ST VA and his troponin level was high. Patient had a cardiology evaluation done by Dr. Ramirez and cardiac catheterization was recommended, but patient had expressed his desire that it needs to be done by his regular ems helicopter pilot, Dr. Kramer at [facility] and requested the patient being transferred over there. Patient has a high BNP level of 1220. Patient had a high potassium that patient was given. Transfer arrangement is being made and patient will be transferred to [facility] under the care of Dr. Kramer for possible cardiac intervention for recurrent VA. ANTHONY BRUNO MD Job#: [id number] [place]
[2018-09-24] MEDS ORDERED: AMIODARONE HCL 150 MG/100 ML BAG IV ONE (15:45)
[2018-09-24] MEDS ORDERED: AMIODARONE HCL 150 MG in DEXTROSE 5% 100ML 100 ML IV ONE (16:15)
[2018-09-24] MEDS ORDERED: AMIODARONE HCL 900 MG in DEXTROSE 5% 500ML 500 ML IV ONE (16:30)
[2018-09-24] MEDS ORDERED: PREDNISONE 5 MG TAB PO SCH (17:00)
[2018-09-24] MEDS ORDERED: FOLIC ACID 1 MG TAB PO SCH (17:00)
[2018-09-24] MEDS ORDERED: AMIODARONE HCL 200 MG TAB PO SCH (21:00)
[2018-09-24] MEDS ORDERED: ENOXAPARIN INJ 80 MG/0.8 ML SYR SC SCH (21:00)
[2018-09-24] MEDS ORDERED: LORATADINE 10 MG TAB PO SCH (21:00)
[2018-09-24] MEDS: ATORVASTATIN 20 MG TAB PO SCH (21:03)
[2018-09-25] MEDS ORDERED: TIOTROPIUM 18 MCG INH POWDER INH SCH (09:00)
[2018-09-25] MEDS ORDERED: DOCUSATE SODIUM 100 MG CAP PO SCH (09:00)
[2018-09-25] MEDS ORDERED: PANTOPRAZOLE SOD 40 MG TABEC PO SCH (09:00)
[2018-09-25] MEDS ORDERED: FUROSEMIDE 40 MG TAB PO SCH (09:00)
[2018-09-25] MEDS ORDERED: MULTIVITAMINS/MINERALS TAB PO SCH (09:00)
[2018-09-25] MEDS ORDERED: TAMSULOSIN HCL 0.4 MG CAP PO SCH (09:00)
[2018-09-26] MEDS ORDERED: FENTANYL 50 MCG/HR PATCH TD SCH (13:00)
== END 2018-09-24 21:00 | disposition short-term general hospital (02) | DRG 280 ==
LOC: ER 10:26 → ERHOLD 13:25 → ICU 18:55
PROVIDERS: ADMIT Internal Medicine; ATTEND Internal Medicine
DX: I21.4 Non-ST elevation (NSTEMI) myocardial infarction (principal); I50.33 Acute on chronic diastolic (congestive) heart failure; J44.9 Chronic obstructive pulmonary disease, unspecified; I25.10 Atherosclerotic heart disease of native coronary artery without angina pectoris; Z09 Encounter for follow-up examination after completed treatment for conditions other than malignant neoplasm; Z95.1 Presence of aortocoronary bypass graft; Z95.810 Presence of automatic (implantable) cardiac defibrillator; D69.6 Thrombocytopenia, unspecified; Z87.891 Personal history of nicotine dependence; F41.9 Anxiety disorder, unspecified; M54.9 Dorsalgia, unspecified; G89.29 Other chronic pain; F17.210 Nicotine dependence, cigarettes, uncomplicated; G62.9 Polyneuropathy, unspecified; I11.0 Hypertensive heart disease with heart failure
CPT/HCPCS: 36415; 71046; 80048; 80053; 80061; 82550; 82553; 83880; 84443; 84484; 85025; 85610; 85730; 93005; 93306; 93971; 94640; 96376; 99284; J0696; J1650; J1940; J1956; J2270; J2930; J7060; J7512

== ENCOUNTER → 2019-05-01 | Outpatient (CLI) | payer MEDICARE, OTHER ==
--- NOTE | 2019-05-01 17:07 | Diagnostic Imaging Report ---
EXAM: Renal Ultrasound INDICATION: ^CALCULUS OF KIDNEY/heart failure COMPARISON: None TECHNIQUE: Transverse and longitudinal images of the kidneys and bladder were obtained. FINDINGS: Right Kidney: Length: 10.2 cm Appearance: Normal echogenicity. Collecting system: No hydronephrosis Stones: None Cyst/Mass: None Left Kidney: Length: 11.2 cm Appearance: Normal echogenicity. Collecting system: No hydronephrosis Stones: Echogenic focus measuring 0.3 cm at the lateral lower pole with twinkle artifact. Echogenic focus measuring 0.4 cm at the lateral midpole with twinkle artifact. Cyst/Mass: None Bladder: No wall thickening or bladder mass. Ureteral jets not visualized. IMPRESSION: No hydronephrosis. Left kidney mid and lower pole echogenic foci measuring 0.4 and 0.3 cm with twinkle artifact likely represent nonobstructive calculi. Signed by: Cee Cohen MD on 05/01/2019 5:04 PM
== END ==
LOC: US 16:09
PROVIDERS: ATTEND Internal Medicine
DX: N20.0 Calculus of kidney (principal); I50.40 Unspecified combined systolic (congestive) and diastolic (congestive) heart failure
CPT/HCPCS: 76770

== ENCOUNTER → 2019-09-25 | Outpatient (CLI) | payer MEDICARE, OTHER ==
--- NOTE | 2019-09-25 17:17 | Diagnostic Imaging Report ---
Pelvis, AP view Clinical indication: Pain Comparison: None Findings: AP view the pelvis were obtained. There is no radiographic evidence of acute fracture or dislocation. There is mild left hip joint space narrowing. Degenerative changes of the lumbosacral spine and bilateral sacroiliac joints are noted. Femoral vascular stents are in place. Diffuse atherosclerotic calcifications are noted. Impression: 1. No radiographic evidence of acute fracture or dislocation. 2. Moderate left hip osteoarthrosis. Signed by: Milan Hernandez MD on 09/25/2019 5:14 PM
--- NOTE | 2019-09-25 17:20 | Diagnostic Imaging Report ---
Left hip, 2 views Clinical indications: Pain Comparison: None Findings: AP and frog-leg lateral views of the left hip were obtained. There is no radiographic evidence of acute fracture or dislocation. There is moderate left hip joint space narrowing and acetabular osteophyte formation. Atherosclerotic vascular calcifications are noted. Impression: Moderate left hip osteoarthrosis without radiographic evidence of acute fracture or dislocation. Signed by: Milan Hernandez MD on 09/25/2019 5:16 PM
--- NOTE | 2019-09-25 17:24 | Diagnostic Imaging Report ---
Lumbar spine 5 views on 7 radiographs Clinical indication: Pain Comparison: None Findings: PA, lateral, bilateral, lateral cone-down view of the lumbosacral spine were obtained. There is no radiographic evidence of acute fracture or subluxation. Patient is status post L3-L4 and L4-L5 laminectomy. There is severe disc space narrowing at L3-L4, L4-L5, and L5-S1. 2 mm of anterolisthesis of L3 on L4. Impression: 1. No radiographic evidence of acute fracture or subluxation. 2. Status post L3-L4 and L4-L5 appendectomy. 3. Severe disc space narrowing at L3-L4, L4-L5, and L5-S1 Signed by: Milan Hernandez MD on 09/25/2019 5:21 PM
--- NOTE | 2019-09-25 17:26 | Diagnostic Imaging Report ---
Sacrum and coccyx, 4 views Clinical indication: Pain Comparison: None Findings: AP and lateral views of the sacrum and AP and lateral views of the coccyx were performed. There is no radiographic evidence of acute fracture or dislocation. Impression: No radiographic evidence of acute fracture or dislocation. Signed by: Milan Hernandez MD on 09/25/2019 5:23 PM
== END ==
LOC: RAD 14:52
PROVIDERS: ATTEND Internal Medicine
DX: S33.9XXA Sprain of unspecified parts of lumbar spine and pelvis, initial encounter (principal)
CPT/HCPCS: 72110; 72170; 72220

== ENCOUNTER 2019-12-23 11:38 | Emergency (ER) | payer MEDICARE, OTHER ==
[~2019-12-23] VITALS: Ht 177.8 cm; Wt 78.9 kg
--- OUTSIDE RECORDS SUMMARY | 2019-12-23 11:44 | XMS REPORT | Summary of Care ---
Author Author [facility] Organization [facility] Address Unknown Phone Unavailable Care Team Providers Care Chief Gauger Name Role Phone PCP Unavailable Reason for Visit * Reason Comments Follow Up Encounter Details Care Team Description Date Type Department Vito Jackson MD [address] [place] [address] Follow Up 06/30/2019 Office Visit [facility] Vascular Surgery [address] [place] [address] [place] [phone] Allergies No Known Allergiesdocumented as of this encounter (statuses as of 07/03/2019) Medications End Date Status Medication Sig Dispensed Refills Start Date 09/28/2019 Active aspirin EC 81 MG tablet Take 81 mg by 0 mouth. 8 Active amiodarone (PACERONE) 200 TAKE 1 TABLET 11 201 MG tablet (200 MG 8 TOTAL) BY MOUTH 2 (TWO) TIMES DAILY. 09/27/2019 Active amiodarone (PACERONE) 200 Take 200 mg 0 MG tablet by mouth. 8 Active folic acid (FOLVITE) 1 MG TAKE 1 TABLET 1 tablet BY MOUTH 8 TWICE A DAY 09/27/2019 Active furosemide (LASIX) 40 MG Take 40 mg by 0 tablet mouth. 8 Active furosemide (LASIX) 40 MG TAKE 1 TABLET 1 tablet BY MOUTH 8 TWICE A DAY 09/27/2019 Active metoprolol (TOPROL-XL) 25 Take 12.5 mg 0 MG XL tablet by mouth. 8 Active metoprolol (TOPROL-XL) 25 TAKE 1/2 1 MG XL tablet TABLET BY 8 MOUTH DAILY Active oxycodone-acetaminophen TAKE 1 TABLET 0 (PERCOCET) 10-325 MG per BY MOUTH 8 tablet EVERY 6 HOURS NEEDED Active potassium chloride SA Take 20 mEq 0 (K-DUR, KLOR-CON M20) 20 by mouth. 8 MEQ tablet Active F-Uvkqgpfabhkl-Y9-B12 Take one pill 60 Tab 1 3-35-2 MG TABS by mouth 9 twice daily documented as of this encounter (statuses as of 07/03/2019) Active Problems Problem Noted Date Neuropathy 07/03/2019 PAD (peripheral artery disease) (HCCode) 10/14/2018 Ischemic cardiomyopathy 10/14/2018 Essential hypertension 10/14/2018 Hyperlipidemia 10/14/2018 Paroxysmal atrial fibrillation (HCCode) 10/14/2018 documented as of this encounter (statuses as of 07/03/2019) Social History Date Tobacco Use Types Packs/Day Years Used Current Every Day Smoker Smokeless Tobacco: Never Used Drinks/Week oz/Week Comments Alcohol Use No Alcohol Habits Answer Date Recorded How often do you have a drink containing alcohol? Never 10/14/2018 How many drinks containing alcohol do you have on Not asked a typical day when you are drinking? How often do you have six or more drinks on one Not asked occasion? Sex Assigned at Date Recorded Not on file Industry Job Start Date Occupation Not on file Not on file Not on file Travel End Travel History Travel Start No recent travel history available. documented as of this encounter Last Filed Vital Signs Reading Time Taken Comments Vital Sign 135/73 06/30/2019 3:37 PM CDT Blood Pressure 76 06/30/2019 3:37 PM CDT Pulse - - Temperature - - Respiratory Rate - - Oxygen Saturation - - Inhaled Oxygen Concentration 77.6 kg (171 lb) 06/30/2019 3:37 PM CDT Weight - - Height 24.54 2019 11:25 AM CDT Body Mass Index documented in this encounter Patient Instructions * Patient Instructions* Clayton Leung CMA - 06/30/2019 4:28 PM CDT Thank you for choosing [facility]. You may receive a survey in the mail. Please provide comments to let us know how we can improve our patient care. Instructions for your care: Patient will follow up in 3 months with arterial duplex Ordered Lymphedema pump Vito Morfin MD monument stonecutter Division of Vascular Surgery and Endovascular Therapy If you have any questions, please feel free to call us at: \ documented in this encounter Progress Notes * Vito Jackson MD - 06/30/2019 3:00 PM CDT Pt overall very frustrated by his medical problems, primarily pain (back/neuropa thy) related and leg swelling (ambulates very little). Duplex today shows intact bilateral lower extremity interventions with normal AB Is, also no reflux in the veins. PLAN. Compression stockings, compression neumatic system and rtc in 6 months. Consider new pain mgt specialist Consider nerve stimulator documented in this encounter Plan of Treatment Care Team Description Date Type Specialty Mitchell Bhagat DPM [address] [place], [place] [id number] 07/07/2019 Office Visit Vascular Surgery Health Maintenance Due Date Last Done Comments COLON CANCER SCREENIN1948 COLONOSCOPY MEDICARE AWV 1950 TETANUS SHOT (ADULT) 01/22/1963 ANNUAL DIABETIC FOOT EXAM 01/22/1966 ANNUAL DIABETIC 01/22/1966 RETINOPATHY SCREENING HEPATITIS C SCREENING 01/22/1966 AAA Screen 01/22/2013 FALL SCREEN 01/22/2013 PNEUMOVAX >=65 (PPSV23) 01/22/2013 PREVNAR >=65 (PCV13) 01/22/2013 FLU VACCINE > 6 MONTHS 05/22/2019 documented as of this encounter Results Not on filedocumented in this encounter Visit Diagnoses Diagnosis PAD (peripheral artery disease) (HCCode) - Primary Unspecified disorders of arteries and arterioles Neuropathy Mononeuritis of unspecified site documented in this encounter Insurance Type Payer Benefit Subscriber ID Effective Phone Address Plan / Dates Group Medicare MEDICARE MEDICARE xxxxxxxxxx 2014- [address] Present [id number] [place] [address] Medicare [employer] - xxxxxxxx 2013-P [phone] [address] [facility] [address] (Home) [place], [place] [id number] documented as of this encounter
--- OUTSIDE RECORDS SUMMARY | 2019-12-23 11:44 | XMS REPORT | Summary of Care ---
Author Author [facility] Organization [facility] Address Unknown Phone Unavailable Care Team Providers Care Client Success Director Name Role Phone PCP Unavailable Reason for Visit * Reason Comments Follow Up Encounter Details Care Team Description Date Type Department Mitchell Bhagat DPM [address] [place] [address] Follow Up 06/09/2019 Office Visit [facility] Vascular Surgery [address] [facility], [facility] [address] [place] [address] Allergies No Known Allergiesdocumented as of this encounter (statuses as of 06/09/2019) Medications End Date Status Medication Sig Dispensed [...] 20 by mouth. 8 MEQ tablet Active A-Czmelaireafx-E7-B12 Take one pill 60 Tab 1 3-35-2 MG TABS by mouth 9 twice daily documented as of this encounter (statuses as of 06/09/2019) Active Problems Problem Noted Date PAD (peripheral artery disease) 10/14/2018 Ischemic cardiomyopathy 10/14/2018 Essential hypertension 10/14/2018 Hyperlipidemia 10/14/2018 Paroxysmal atrial fibrillation 10/14/2018 documented as of this encounter (statuses as of 06/09/2019) Social History Date Tobacco Use Types Packs/Day [...] Signs Reading Time Taken Comments Vital Sign - - Blood Pressure - - Pulse - - Temperature - - Respiratory Rate - - Oxygen Saturation - - Inhaled Oxygen Concentration 75.8 kg (167 lb) 06/09/2019 2:46 PM CDT Weight - - Height 23.96 2019 11:25 AM CDT Body Mass Index documented in this encounter Progress Notes * Mitchell Bhagat DPM - 06/09/2019 3:30 PM CDT Subjective: Mr. Devon Duncan is a pleasant 69 y.o. male who returns to the [facility] today for follow up to ulceration lateral aspect of the right foot. Chief Complaint Patient presents with Follow Up . he admits to to being compliant with his his local wound care consisting of u se of Bactroban and dry dressing to the area daily. He has had increased diffic ulty offloading the area due to his job. He denies any additional complaints to day. No results found for: HGBA1C. Physical Exam: Wound site right lateral aspect at the base of the 5th metatarsal of the right f oot presents measuring 0.5cmx0.6cmx0.2cm. The wound site presents with thickene d hyperkeratotic type tissue periwound. There is not any evidence of edema, zahida thema, purulence, malodor, probe to bone, tracking or tunneling noted. Assessment/Plan: Encounter Diagnosis and Orders ICD-10-CM 1. Type II diabetes mellitus with peripheral circulatory disorder E11.51 2. PAD (peripheral artery disease) I73.9 3. Right foot ulcer, with fat layer exposed L97.512 With the use of a sharp and sterile curette the wound site was sharply debrided down to and including the hatch bcutaneous tissue less than 20cm2. Scant bleeding was noted and controlled via direct pressure. The wound site was then dressed with bactroban followed by lianet lication of dry sterile 4x4, webrill and cresencio bandage in a mildly compressive man ner. He was instructed to change dressing daily. Accomodation was made to his cu rrent insert to remove pressure from the area. 4. Neuropathic pain M79.2 Mitchell Bhagat DPM documented in this encounter Plan of Treatment Care Team Description Date Type Specialty Vito Jackson MD [address] [address] [phone] 06/30/2019 Office Visit Vascular Surgery Mitchell Bhagat DPM [address] [place] [id number] [phone] 06/30/2019 Office Visit Vascular Surgery Health Maintenance Due [...] filedocumented in this encounter Visit Diagnoses Diagnosis Type II diabetes mellitus with peripheral circulatory disorder - Primary Type II or unspecified type diabetes mellitus with peripheral circulatory disorders, not stated as uncontrolled PAD (peripheral artery disease) Unspecified disorders of arteries and arterioles Right foot ulcer, with fat layer exposed Neuropathic pain Neuralgia, neuritis, and radiculitis, unspecified documented in this encounter Insurance Type Payer Benefit Subscriber ID Effective Phone Address Plan / Dates Group Medicare MEDICARE MEDICARE xxxxxxxxxx 2014- [address] Present [id number] [place] [address] Medicare [employer] [facility] - xxxxxxxx 2013-P [phone] [address] [employer] [facility] [id number] documented as of this encounter
--- OUTSIDE RECORDS SUMMARY | 2019-12-23 11:44 | XMS REPORT | Summary of Care ---
Author Author [facility] Organization [facility] Address Unknown Phone Unavailable Care Team Providers Care Industrial Hygienist Name Role Phone PCP Unavailable Reason for Visit * Reason Comments Wound Check Encounter Details Care Team Description Date Type Department Mitchell Bhagat DPM [address] [place] [address] Wound Check 05/22/2019 Office Visit [facility] Vascular Surgery [address] [facility], [facility] [address] [place] [address] Allergies No Known Allergiesdocumented as of this encounter (statuses as of 06/10/2019) Medications End Date Status Medication Sig Dispensed [...] 20 by mouth. 8 MEQ tablet Active V-Ytaigouxuflg-U4-B12 Take one pill 60 Tab 1 3-35-2 MG TABS by mouth 9 twice daily documented as of this encounter (statuses as of 06/10/2019) Active Problems Problem Noted Date PAD (peripheral artery disease) 10/14/2018 Ischemic cardiomyopathy 10/14/2018 Essential hypertension 10/14/2018 Hyperlipidemia 10/14/2018 Paroxysmal atrial fibrillation 10/14/2018 documented as of this encounter (statuses as of 06/10/2019) Social History Date Tobacco Use Types Packs/Day [...] Inhaled Oxygen Concentration 75.8 kg (167 lb) 05/22/2019 4:26 PM CDT Weight - - Height 23.96 2019 11:25 AM CDT Body Mass Index documented in this encounter Patient Instructions * Patient Instructions* Conchita Montes MA - 05/22/2019 4:57 PM CDT Thank you for choosing [facility]. You may receive a survey in the mail. Please provide comments to let us know how we can improve our patient care. Instructions for your care: Patient will follow up in 2-3 weeks for wound check Mitchell Bhagat DPM glass cutting machine operator Division of Vascular Surgery and Endovascular Therapy If you have any questions, please feel free to call us at: documented in this encounter Progress Notes * Mitchell Bhagat DPM - 05/22/2019 4:15 PM CDT Subjective: Mr. Devon Duncan is a pleasant 69 y.o. male who returns to the [facility] today for follow up to ulceration lateral right foot. Chief Complaint Patient presents with Wound Check . he admits to to being compliant with his his local wound care consisting of u se of calcium alginate however he has not been compliant with the use of his off loading shoe. He denies any additional complaints today. No results found for : HGBA1C. Physical Exam: Wound site right lateral foot base of the 5th metatarsal presents measuring 0.5c mx0.5cmx0.2cm. The wound site presents with mixed fibrotic and granular base wi th positive hyperkeratosis periwound. There is not any evidence of edema, eryth bernie, purulence, malodor, probe to bone, tracking or tunneling noted. Assessment/Plan: Encounter Diagnosis and Orders ICD-10-CM 1. Type II diabetes mellitus with peripheral circulatory disorder E11.51 Diabeti c foot patient education was reinforced. 2. PAD (peripheral artery disease) I73.9 3. Right foot ulcer, with fat layer exposed L97.512 With the use of a sharp and sterile curette and #15 blade the wound site was sharply debrided down to and in cluding the subcutaneous tissue less than 20cm2. Scant bleeding was noted and c ontrolled via direct pressure. The wound site was then dressed with bactroban f ollowed by application of dry sterile 4x4, webrill and cresencio bandage in a mildly c ompressive manner. He was instructed to change dressing every other day with use of Calcium alginate and dry dressing. Is advised on increased offloading of the right foot 4. Neuropathic pain M79.2 Mitchell Bhagat DPM documented in this encounter Plan of Treatment Care Team Description Date Type Specialty Vito Jackson MD [address] [facility] [address] [place] [address] 06/30/2019 Office Visit Vascular Surgery Mitchell Bhagat, ROSIE [address] [place] [address] 06/30/2019 Office Visit Vascular Surgery Health Maintenance [...] [address] Present [id number] [place] [address] Medicare [employer] [facility] - xxxxxxxx 2013-P [phone] [address] [employer] OF [facility] [id number] documented as of this encounter
--- OUTSIDE RECORDS SUMMARY | 2019-12-23 11:45 | XMS REPORT | Summary of Care ---
Author Author [facility] Organization [facility] Address Unknown Phone Unavailable Care Team Providers Care Aquaculture Director Name Role Phone PCP Unavailable Reason for Visit * Reason Comments Foot Ulcer Encounter Details Care Team Description Date Type Department [place] Bhagat DPM [address] [place] [address] Foot Ulcer 06/30/2019 Office Visit [facility] Vascular Surgery [address] [facility] [address] [place] [address] Allergies No Known Allergiesdocumented as of this encounter (statuses as of 07/15/2019) Medications End Date Status Medication Sig Dispensed [...] 20 by mouth. 8 MEQ tablet Active M-Zhvjctceudud-L2-B12 Take one pill 60 Tab 1 3-35-2 MG TABS by mouth 9 twice daily documented as of this encounter (statuses as of 07/15/2019) Active Problems Problem Noted Date Neuropathy 07/03/2019 [facility] 10/14/2018 Ischemic cardiomyopathy 10/14/2018 Essential hypertension 10/14/2018 Hyperlipidemia 10/14/2018 Paroxysmal atrial fibrillation [facility] 10/14/2018 documented as of this encounter (statuses as of 07/15/2019) Social History Date Tobacco Use Types Packs/Day [...] of this encounter Last Filed Vital Signs Not on filedocumented in this encounter Progress Notes * [place] Bhagat DPM - 06/30/2019 3:45 PM CDT Subjective: Mr. Devon Duncan Jr. is a pleasant 69 y.o.T2DM male who returns to the clinic today for follow up to ulceration of the right foot. Chief Complaint Patient presents with Foot Ulcer . he admits to to being compliant with his his local wound care consisting of u se of Bactroban and a dry dressing. He denies any additional complaints today. No results found for: HGBA1C. Physical Exam: Wound site right plantar lateral foot presents measuring 0.3cmx0.5cmx0.2cm. The wound site presents with thickened hyperkeratosis periwound with a wound bed pr esented with mixed fibrotic and granular base. There is not any evidence of shiva ma, erythema, purulence, malodor, probe to bone, tracking or tunneling noted. Assessment/Plan: Encounter Diagnosis and Orders ICD-10-CM 1. Type II diabetes mellitus with peripheral circulatory disorder (HCCode) E11.5 1 Diabetic foot patient education was reinforced. 2. PAD (peripheral artery disease) (HCCode) I73.9 3. Neuropathy G62.9 4. Right foot ulcer, with fat layer exposed (HCCode) L97.512 With the use of a s harp and sterile curette the wound site was sharply debrided down to and includi ng the subcutaneous tissue less than 20cm2. Scant bleeding was noted and contro lled via direct pressure. The wound site was then dressed with Bactroban follow ed by application of dry sterile 4x4, webrill and cresencio bandage in a mildly compre ssive manner. He was instructed to change dressing daily accomodation was made to his current insert to help improve offloading . [place] Bhagat DPM documented in this encounter Plan of Treatment Health Maintenance Due Date [...] II diabetes mellitus with peripheral circulatory disorder (HCCode) - Primary Type II or unspecified type diabetes mellitus with peripheral circulatory disorders, not stated as uncontrolled PAD (peripheral artery disease) (HCCode) Unspecified disorders of arteries and arterioles Neuropathy Mononeuritis of unspecified site Right foot ulcer, with fat layer exposed (HCCode) documented in this encounter Insurance Type Payer Benefit Subscriber ID Effective Phone Address Plan / Dates Group Medicare MEDICARE MEDICARE xxxxxxxxxx 2014- [address] Present [id number] [place] [address] Medicare [employer] - xxxxxxxx 2013-P [phone] [address] [employer] [facility] [id number] [address] (Home) [place] [phone] documented as of this encounter
--- OUTSIDE RECORDS SUMMARY | 2019-12-23 11:45 | XMS REPORT | Summary of Care ---
Author Author [facility] Organization [facility] Address Unknown Phone Unavailable Care Team Providers Care Neck Cutter Name Role Phone PCP Unavailable Reason for Referral * Radiology Services (Routine) Referred By Contact Referred To Contact Status Reason Specialty Diagnoses / Procedures Vito Jackson MD [address] [place] [id number] [facility] [address] [place] [phone] Pending Radiology Diagnoses PAD (peripheral artery disease) (HCCode) P rocedures US ARTERIAL LEGS BILATERAL * Radiology Services (Routine) Referred By Contact Referred To Contact Status Reason Specialty Diagnoses / Procedures Philippe Austin NP [address] [address] [facility] [address] [place] [phone] Pending Radiology Diagnoses Left-sided carotid artery disease, unspecified type (HCCode) P rocedures US CAROTID Reason for Visit * Reason Comments Follow Up Encounter Details Care Team Description Date Type Department Vito Jackson MD [address] [place] [id number] Follow Up 11/24/2019 Office Visit [facility] Vascular Surgery [address] [facility] [address] [facility], [address] [place] [address] Allergies No Known Allergiesdocumented as of this encounter (statuses as of 11/28/2019) Medications End Date Status Medication Sig Dispensed Refills Start Date Active amiodarone (PACERONE) 200 TAKE 1 TABLET 11 MG tablet (200 MG 8 TOTAL) BY MOUTH 2 (TWO) TIMES DAILY. Active folic acid (FOLVITE) 1 MG TAKE 1 TABLET 1 tablet BY MOUTH 8 TWICE A DAY Active furosemide (LASIX) 40 MG TAKE 1 TABLET 1 tablet BY MOUTH 8 TWICE A DAY Active metoprolol (TOPROL-XL) 25 TAKE 1/2 1 MG XL tablet TABLET BY 8 MOUTH DAILY Active oxycodone-acetaminophen TAKE 1 TABLET 0 (PERCOCET) 10-325 MG per BY MOUTH 8 tablet EVERY 6 HOURS NEEDED Active potassium chloride SA Take 20 mEq 0 (K-DUR, KLOR-CON M20) 20 by mouth. 8 MEQ tablet Active A-Yoxstpzgnpkj-F7-B12 Take one pill 60 Tab 1 3-35-2 MG TABS by mouth 9 twice daily Active mupirocin (BACTROBAN) 2 % Apply to 1 Tube 1 ointment affected area 9 documented as of this encounter (statuses as of 11/28/2019) Active Problems Problem Noted Date Diabetic ulcer of right midfoot associated with type 2 diabetes mellitus, 10/02/2019 limited to breakdown of skin (HCCode) Hyperkeratosis 10/02/2019 Diabetic peripheral neuropathy (HCCode) 10/02/2019 Right foot drop 10/02/2019 Neuropathy 07/03/2019 PAD (peripheral artery disease) (HCCode) 10/14/2018 Ischemic cardiomyopathy 10/14/2018 Essential hypertension 10/14/2018 Hyperlipidemia 10/14/2018 Paroxysmal atrial fibrillation (HCCode) 10/14/2018 documented as of this encounter (statuses as of 11/28/2019) Social History Date Tobacco Use Types Packs/Day Years Used Current Every Day Smoker Smokeless Tobacco: Never Used Tobacco Cessation: Ready to Quit: No Drinks/Week oz/Week Comments Alcohol Use No Alcohol [...] Signs Reading Time Taken Comments Vital Sign 111/76 11/24/2019 3:40 PM CAMERA ENGINEER Blood Pressure 82 11/24/2019 3:40 PM CAMERA ENGINEER Pulse - - Temperature - - Respiratory Rate - - Oxygen Saturation - - Inhaled Oxygen Concentration 74.8 kg (165 lb) 11/24/2019 3:40 PM CAMERA ENGINEER Weight - - Height 23.68 2019 11:25 AM CDT Body Mass Index documented in this encounter Patient Instructions * Patient Instructions* Jose Cruz Macario CMA - 11/24/2019 4:40 PM CAMERA ENGINEER Thank you for choosing [facility]. You may receive a survey in the mail. Please provide comments to let us know how we can improve our patient care. Follow up in 3 months with A45. Tactile order given for compression machine Vito Morfin MD sod stripper Division of Vascular Surgery and Endovascular Therapy If you have any questions, please feel free to call us at: RA ENGINEER documented in this encounter Progress Notes * Philippe Austin NP - 11/24/2019 3:15 PM CAMERA ENGINEER [facility] Vascular Surgery Clinic [address] [place] [address] [address], [place]. [address] Office: [phone] DATE OF VISIT: 11/24/19 PATIENT NAME: Devon Duncan Jr. : 1950 PCP / REFERRING PHYSICIAN: No primary care provider on file. / No primary physic nando on file. The patient presents today for a Vascular Surgery Established Visit. The patient coates previously undergone a R SFA/ POP BAS (11/20/18 - [facility]) and L SFA BA (11/06 - [facility]). The patient returns to clinic today with ongoing concerns regard ing LLE swelling. The patient wears compression stockings consistently without m uch relief from swelling. The patient presents to discuss treatment options. VITAL SIGNS: BP 111/76 | Pulse 82 | Wt 165 lb (74.8 kg) | BMI 23.68 kg/m PHYSICAL EXAM: Constitutional: Well nourished, no signs of distress Cardiovascular: Normal rate, regular rhythm and normal heart sounds. Pulmonary/Chest: Breath sounds normal. No respiratory distress. Abdominal: Soft. No abdominal distension or tenderness. Musculoskeletal: Normal range of motion. No evidence of arthritis. Extremities: No edema, cyanosis or clubbing. Mild LLE swelling Neurological: He is alert and oriented. No muscle weakness and normal gait. VASCULAR: Palpable femoral pulses were present bilaterally with palpable poplit eal, dorsalis pedis and posterior tibial artery pulse. Vascular Ultrasound Study: Assessment & Plan: Peripheral arterial disease: The patient is asymptomatic. The patient continues to experience LLE swelling.Our office will attempt to identify better compressi on for the patient. He will follow up in 6 months with an A25 and C80. ROSY Ramos Vascular Surgery RA ENGINEER documented in this encounter Plan of Treatment Order Schedule Name Type Priority Associated Diagnoses 1 Occurrences starting 11/24/2019 until 11/24/2020 US CAROTID Imaging Routine Left-sided carotid artery disease, unspecified type (HCCode) 1 Occurrences starting 11/24/2019 until 11/24/2020 US ARTERIAL LEGS Imaging Routine PAD (peripheral artery BILATERAL disease) (HCCode) Health Maintenance Due Date Last Done Comments COLON CANCER SCREENIN1950 COLONOSCOPY TETANUS SHOT (ADULT) 01/22/1963 ANNUAL DIABETIC FOOT EXAM 01/22/1966 ANNUAL DIABETIC 01/22/1966 RETINOPATHY SCREENING HEPATITIS C SCREENING 01/22/1966 AAA Screen 01/22/2013 FALL SCREEN 01/22/2013 PNEUMOVAX >=65 (PPSV23) 01/22/2013 PREVNAR >=65 (PCV13) 01/22/2013 MEDICARE AWV (Initial) 10/22/2013 FLU VACCINE > 6 MONTHS 05/22/2019 documented as of this encounter Results Not on filedocumented in this encounter Visit Diagnoses Diagnosis Left-sided carotid artery disease, unspecified type (HCCode) - Primary PAD (peripheral artery disease) (HCCode) Unspecified disorders of arteries and arterioles documented in this encounter Insurance Type Payer Benefit Subscriber ID Effective Phone Address Plan / Dates Group Medicare MEDICARE MEDICARE xxxxxxxxxxx 2019- [address] Present [id number] [place] [address] Medicare [employer] - xxxxxxxx 2013-P [phone] [address] [employer] [facility] [address] [address] (Home) [place] [address] documented as of this encounter"
--- NOTE | 2019-12-23 13:17 | Diagnostic Imaging Report ---
CT BRAIN WO HISTORY: Headache COMPARISON: None. Technique: Noncontrast axial scans were obtained from skull base to the vertex. Coronal and sagittal reconstructions obtained from the axial data. One or more of the following dose reduction techniques were used: Automated exposure control, adjustment of the mA and/or kV according to patient size, and/or utilization of iterative reconstruction technique. DISCUSSION: Scalp/Skull: Unremarkable. Brain sulci: Mildly prominent. Ventricles: Compensatory dilatation. Extra-axial spaces: No masses or fluid collections. Carotid and vertebral artery calcifications are present. Parenchyma: Mild bilateral deep white matter hypodensity is likely chronic microvascular ischemic change. Otherwise, no masses, hemorrhage, or large vascular territory acute infarct. Dural sinuses: No abnormal densities. Sellar/Suprasellar region: Intact. Skull base: Intact. Incidental findings: Bilateral ocular lens replacement. Opacified right maxillary sinus is partially imaged. IMPRESSION: 1. No acute intracranial abnormalities. 2. Mild supratentorial chronic microvascular ischemic change. Mild generalized cerebral volume loss. Signed by: Dr. Mil Hsieh M.D. on 12/23/2019 1:14 PM
== END 2019-12-23 14:03 | disposition home or self-care (01) ==
LOC: ER 11:38
DX: H11.32 Conjunctival hemorrhage, left eye (principal); I10 Essential (primary) hypertension; E11.9 Type 2 diabetes mellitus without complications; J44.9 Chronic obstructive pulmonary disease, unspecified; I48.91 Unspecified atrial fibrillation; F41.9 Anxiety disorder, unspecified; K21.9 Gastro-esophageal reflux disease without esophagitis
CPT/HCPCS: 70450; 99284

== ENCOUNTER 2020-02-03 13:30 | Inpatient (IN) | payer MEDICARE, OTHER ==
[2020-02-03] MEDS ORDERED: NITROGLYCERIN 0.4 MG SUBL SL PRN (17:45)
[2020-02-03] MEDS ORDERED: LEVALBUTEROL HCL SOLN NEBU 0.63 MG/3 ML NEB INH PRN (17:45)
[2020-02-03] MEDS ORDERED: DEXTROSE 50% SYRINGE 50 ML IV PRN (18:15)
[2020-02-03 18:29] VITALS: BP 145/70
[2020-02-03] MEDS ORDERED: FUROSEMIDE INJ 10 MG/ML 4 ML VIAL IV ONE (18:30)
[2020-02-03 18:35] VITALS: BP 145/70
[2020-02-03 18:35] LABS: BASOPHILS % 0.2 % (0.0-1.0); EOSINOPHILS # (AUTO) 0.2 (0.0-0.4); EOSINOPHILS % 1.9 % (0.0-6.0); HEMATOCRIT 25.2 % (38.2-49.6); LYMPHOCYTES # (AUTO) 1.2 (1.0-3.2); LYMPHOCYTES % 12.4 % (18.0-39.1); MEAN CORPUSCULAR HEMOGLOBIN 22.7 pg (28-32); MEAN CORPUSCULAR HGB CONC 27.8 g/dL (31-35); MEAN CORPUSCULAR VOLUME 81.8 fL (81-99); MONOCYTES # (AUTO) 1.5 (0.2-0.8); MONOCYTES % 14.9 % (4.4-11.3); NEUTROPHILS # (AUTO) 6.8 (2.1-6.9); NEUTROPHILS % 69.5 % (38.7-80.0); PLATELET COUNT 168 x10e3/uL (140-360); RED BLOOD COUNT 3.08 x10e6/uL (4.3-5.7); RED CELL DISTRIBUTION WIDTH 18.7 % (11.7-14.4)
[2020-02-03 18:36] VITALS: BP 145/70
[2020-02-03 18:46] LABS: INR 1.07; PROTHROMBIN TIME 14.6 seconds (11.9-14.5)
[2020-02-03 18:47] LABS: PARTIAL THROMBOPLASTIN TIME 32.7 seconds (23.8-35.5)
--- NOTE | 2020-02-03 18:49 | Diagnostic Imaging Report ---
EXAMINATION: CHEST 2 VIEWS INDICATION: ^COPD ^[id number] ^[id number] COMPARISON: 09/23/2018 FINDINGS: TUBES and LINES: Left anterior chest cardiac device. Sternal wires. LUNGS: Mild chronic appearing changes in the lungs. No focal consolidation. PLEURA: No pleural effusion or pneumothorax. HEART AND MEDIASTINUM: The cardiomediastinal silhouette is unremarkable. BONES AND SOFT TISSUES: No acute osseous lesion. Soft tissues are unremarkable. UPPER ABDOMEN: No free air under the diaphragm. IMPRESSION: Mild chronic appearing changes in the lungs. No focal consolidation. Signed by: Dr. Johnny Gonzalez M.D. on 02/03/2020 6:46 PM
[2020-02-03 18:53] LABS: ALBUMIN 2.7 g/dL (3.5-5.0); ALBUMIN/GLOBULIN RATIO 1.1 (0.8-2.0); CALCIUM 8.1 mg/dL (8.4-10.2); CREATININE, SERUM 1.23 mg/dL (0.72-1.25)
[2020-02-03 19:14] LABS: THYROID STIMULATING HORMONE 1.081 uIU/mL (0.350-4.940)
[2020-02-03] MEDS ORDERED: OXYCODONE HCL IR 5 MG TAB PO PRN (19:15)
[2020-02-03] MEDS ORDERED: OXYCODONE HCL 10 MG TAB CR PO PRN (19:15)
[2020-02-03 20:20] VITALS: BP 116/55
[2020-02-03] MEDS ORDERED: SODIUM CHLORIDE 0.9% 250ML 250 ML IV ONE (20:30)
[2020-02-03] MEDS ORDERED: FUROSEMIDE INJ 10 MG/ML 4 ML VIAL IV SCH (21:00)
[2020-02-03] MEDS: INSULIN LISPRO 100 UNIT/1 ML 3ML VIAL SQ SCH (21:00)
[2020-02-03] MEDS ORDERED: TAMSULOSIN HCL 0.4 MG CAP PO SCH (21:00)
[2020-02-03] MEDS ORDERED: OXYCODONE/ACETAMINOPHEN 5-325 1 EACH TABLET PO STA (21:29)
[2020-02-03] MEDS: PANTOPRAZOLE 40 MG 10ML VIAL IV SCH (22:11)
[2020-02-03] MEDS: SUCRALFATE 1 GM TAB PO SCH (22:11)
--- NOTE | 2020-02-03 22:52 | History and Physical ---
CHIEF COMPLAINT: Anemia, lower extremity edema. HISTORY OF PRESENT ILLNESS: This is a 70-year-old male, currently on a wheelchair. He has difficulty with ambulation. Multiple falls over the last several weeks. He presented to the hospital as a direct admission due to worsening lower extremity edema and questionable palpitations. The patient was evaluated at bedside. He is a very poor historian. He reports having some questionable palpitations several weeks ago. He does have an AICD due to heart failure. He is noncompliant following up with the glue sprayer, seems has been following up with several glue sprayer in the past. He is on diuretics at home. Reports occasional shortness of breath. Does have lower extremity edema. States that he is very compliant with his oral medications. Also, endorses some underlying anemia. Of note, he states in the past he has had a blood transfusion. Currently, his hemoglobin is 7. Also, endorses some mouth ulcers ongoing for the last several weeks with no resolve. Denies any cough, congestion, or any fever. No recent sickness. The patient is seen and evaluated at bedside on the medical floor. He is currently doing well with no other issues at this time. REVIEW OF SYSTEMS: Pertinent positives: Underlying dizziness, lightheadedness, mechanical falls, palpitations, and lower extremity edema. The rest of 14-point review of systems are reviewed with the patient and are negative. ALLERGIES: ALBUTEROL. HOME MEDICATIONS: Amiodarone, cetirizine, Colace, omeprazole, fentanyl, folic acid, furosemide, Xopenex, lisinopril, metformin, multivitamin, oxycodone, prednisone, tamsulosin, Spiriva, atorvastatin, nitroglycerin, vitamin B12, fish oil, and he is also on Eliquis for atrial fibrillation. PAST MEDICAL HISTORY: COPD, heart failure, hypertension, type 2 diabetes, BPH, and generalized weakness. PAST SURGICAL HISTORY: He has had history of pacemaker, AICD, bypass surgery, left shoulder surgery, back surgery, and angioplasty in the past. SOCIAL HISTORY: No drugs. He has a history of smoking, he quit. No alcohol. FAMILY HISTORY: Hypertension and diabetes. PHYSICAL EXAMINATION: VITAL SIGNS: Temperature is 97.6, pulse 84, respiratory rate is 17, blood pressure is 116/55, and pulse ox 98% on room air. GENERAL: Not in acute distress. Alert and oriented x3. Cooperative on examination. HEENT: Head; normocephalic, atraumatic. Eyes; pupils are equal, round, and reactive to light bilaterally. Extraocular movements intact bilaterally. Throat; no evidence of erythema or exudates in the posterior pharynx. Has poor dentition. NECK: Supple. Good range of motion. PULMONARY: Clear to auscultation bilaterally. No wheezing, no rales, no rhonchi, no crackles appreciated. CARDIOVASCULAR: Positive S1 and S2. No murmurs, rubs, or gallops appreciated. ABDOMEN: Soft, nondistended, and nontender to palpation. Bowel sounds present. MUSCULOSKELETAL: Strength is 5/5 throughout. No evidence of any muscle deficits on examination. No weakness appreciated. NEUROLOGIC: Cranial nerves 2 through 12 grossly intact. No evidence of any neurological deficits on exam. SKIN: Intact. Warm to touch. Good cap refill. PSYCHIATRIC: Normal affect and mood. EXTREMITIES: He has 2+ pedal edema bilaterally. LABORATORY DATA: Show white count 9.7, hemoglobin 7, hematocrit is 25, and platelets of 168. Coagulation; PT 14, INR 1, and PTT 32. Chemistry; sodium 145, potassium 4, chloride 115, bicarb 24, anion gap of 10, BUN is 32, creatinine is 1.23, glucose is 118, and calcium is 8.1. Iron saturation is 5%. LFTs; 0.3 total bilirubin, AST 35, ALT 39, and alkaline phosphatase 169. BNP 256. Triglycerides 172 and LDL is 36. TSH is 1. MICROBIOLOGY: None. IMAGING STUDIES: Chest x-ray, mild chronic appearing changes in the lungs. No focal consolidation. IMPRESSION: 1. Acute exacerbation of congestive heart failure, likely with underlying systolic dysfunction with an AICD-continue cardioprotective medications, IV diuretics, the patient refuses Farr, Cardiology consulted. 2. Atrial fibrillation-rate control medications, hold Eliquis due to concerns for GI bleed and anemia, Cardiology consulted. 3. Iron deficiency anemia-2 units packed RBCs has been ordered, GI consultation. 4. Type 2 diabetes, insulin sliding scale, Accu-Cheks, A1c, hold metformin. 5. oral ulcerations-put on Magic mouthwash. 6. History of chronic obstructive pulmonary disease-oral prednisone, neb treatments, Xopenex, and Spiriva. 7. Chronic pain syndrome-continue with oral Percocet p.r.n. 8. Nutrition-diabetic. 9. PT/OT evaluation. 10. SCDs for deep venous thrombosis prophylaxis. 11. Consultants: GI, Cardiology. MD MARCOS Beckett/MODL /[id number]
[2020-02-04] MEDS ORDERED: FUROSEMIDE INJ 10 MG/ML 4 ML VIAL IV SCH
[2020-02-04] MEDS ORDERED: OXYCODONE/ACETAMINOPHEN 5-325 1 EACH TABLET ONE (00:43)
--- NOTE | 2020-02-04 03:10 | NUR ---
BLE PITTING EDEMA LEFT GREATER THAN RIGHT, PATIENT WITH COMPRESSION SOCKS FROM HOME Addendum: 02/04/20 at 0317 by Buffy Hunter RN Amended: Links added.
--- NOTE | 2020-02-04 03:14 | NUR ---
PATIENT EDUCATED ON FALL RISK GIVEN HIS HISTORY OF SEVERE LE WEAKNESS, ASSISTIVE DEVICE USE AND FREQUENT FALLS WITH INJURY. WHEN DISCUSSING CALLING STAFF FOR ASSISTANCE PATIENT IS RUDE AND AGITATED AND STATES HE WILL NOT CALL CAUSE HE DOES NOT NEED OUR HELP, WHEN ATTEMPTING TO PLACE BED ALARM PATIENT STATED "DONT DO THAT SHIT I DO NOT NEED IT." Addendum: 02/04/20 at 0317 by Buffy Hunter RN Amended: Links added.
[2020-02-04] MEDS: FUROSEMIDE INJ 10 MG/ML 4 ML VIAL IV SCH ×2 (03:22→09:26)
[2020-02-04 04:00] VITALS: BP 111/71
[2020-02-04 07:25] LABS: BASOPHILS # (AUTO) 0.1 (0.0-0.1); BASOPHILS % 0.7 % (0.0-1.0); EOSINOPHILS # (AUTO) 0.2 (0.0-0.4); EOSINOPHILS % 1.8 % (0.0-6.0); HEMATOCRIT 34.2 % (38.2-49.6); HEMOGLOBIN 9.8 g/dL (14.0-18.0); LYMPHOCYTES # (AUTO) 1.6 (1.0-3.2); LYMPHOCYTES % 16.5 % (18.0-39.1); MEAN CORPUSCULAR HEMOGLOBIN 23.6 pg (28-32); MEAN CORPUSCULAR HGB CONC 28.7 g/dL (31-35); MEAN CORPUSCULAR VOLUME 82.2 fL (81-99); MONOCYTES # (AUTO) 1.5 (0.2-0.8); MONOCYTES % 15.5 % (4.4-11.3); NEUTROPHILS # (AUTO) 6.3 (2.1-6.9); NEUTROPHILS % 64.5 % (38.7-80.0); PLATELET COUNT 139 x10e3/uL (140-360); RED BLOOD COUNT 4.16 x10e6/uL (4.3-5.7); RED CELL DISTRIBUTION WIDTH 18.3 % (11.7-14.4)
[2020-02-04] MEDS: INSULIN LISPRO 100 UNIT/1 ML 3ML VIAL SQ SCH ×2 (07:30→11:30)
[2020-02-04 07:35] VITALS: BP 101/57
[2020-02-04 07:40] LABS: ANION GAP 11.1 mmol/L (8-16); BLOOD UREA NITROGEN 29 mg/dL (7-26); BUN/CREATININE RATIO 25 (6-25); CALCIUM 7.4 mg/dL (8.4-10.2); CARBON DIOXIDE 25 mmol/L (22-29); CHLORIDE 113 mmol/L (98-107); CREATININE, SERUM 1.16 mg/dL (0.72-1.25); EST GLOMERULAR FILTRATION RATE > 60 ML/MIN (60-); GLUCOSE 82 mg/dL (74-118); POTASSIUM 4.1 mmol/L (3.5-5.1); SODIUM 145 mmol/L (136-145)
[2020-02-04 08:29] VITALS: BP 101/87
[2020-02-04] MEDS ORDERED: PREDNISONE 10 MG TAB PO SCH (09:00)
[2020-02-04] MEDS ORDERED: TIOTROPIUM 18 MCG INH POWDER INH SCH (09:00)
[2020-02-04] MEDS ORDERED: MAALOX/LIDOCAINE/BENADRYL/NYST 30 ML BTL PO SCH (09:00)
[2020-02-04] MEDS ORDERED: TAMSULOSIN HCL 0.4 MG CAP PO SCH (09:00)
[2020-02-04] MEDS ORDERED: FINASTERIDE 5 MG TAB PO SCH (09:00)
[2020-02-04] MEDS ORDERED: FOLIC ACID 1 MG TAB PO SCH ×2 (09:00)
[2020-02-04] MEDS ORDERED: POTASSIUM CHLORIDE 10MEQ EA PO SCH (09:00)
[2020-02-04] MEDS: PANTOPRAZOLE 40 MG 10ML VIAL IV SCH (09:26)
[2020-02-04] MEDS: SUCRALFATE 1 GM TAB PO SCH ×2 (09:26→12:57)
[2020-02-04 10:01] LABS: ANISOCYTOSIS MODERATE; LYMPHOCYTES % (MANUAL) 24 % (19-48); MONOCYTES % (MANUAL) 9 % (3.4-9.0); MYELOCYTES % (MANUAL) 1 % (0-0); NEUTROPHILS % (MANUAL) 65 % (40-74); NUCLEATED RED BLOOD CELLS 1; POLYCHROMASIA FEW; RBC MORPHOLOGY COMMENT ABNORMAL
[2020-02-04 10:02] LABS: BURR CELLS SLIGHT; SCHISTOCYTES FEW
[2020-02-04 10:03] LABS: OVALOCYTES FEW; PLATELET ESTIMATE SLIGHTLY DECREASED; PLATELET MORPHOLOGY COMMENT NORMAL
--- NOTE | 2020-02-04 10:15 | NUR ---
ASSESSMENT: Spiritual concern Pt worried about financial obligations. 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 Intervention: Provided hospitality and empathic listening. Provided information about availability of Screen Cutter And Trimmer and how to reach care transition coordinator, if needed. Outcome: Pt expressed appreciation for visit. No need to follow at this time. ANT WALKER Screen Cutter And Trimmer Spiritual Care Department O: [phone]
--- NOTE | 2020-02-04 14:41 | NUR ---
Patient received a discharge order from Dr. Polanco at 1420. Patient's IV was discontinued at 1430. Patient was assisted gathering his belongings, was given his discharge paperwork, and discussed any questions/concerns he had. Will continue to monitor until he leaves. Addendum: 02/04/20 at 1451 by Marcela Briceño RN Patient was brought to the front via his electric wheelchair at 1440. Patient had no issues on complaints.
--- NOTE | 2020-02-04 15:46 | Consultation ---
DATE OF CONSULTATION: 02/04/2020 Cardiac Consultation REASON FOR CONSULTATION: Advanced congestive heart failure, advanced COPD, heart failure, paroxysmal atrial fibrillation. HISTORY OF PRESENT ILLNESS: Poor historian, 70-year-old gentleman, currently in wheelchair because of multiple fall. He had a fall with fractured pelvis few months back. He is having difficulties with ambulation. The patient is seen and evaluated by his population health coach, Dr. Xiang Kramer where he had blood work. He was quite anemic with hemoglobin of 7. That is the 2nd time he has become quite anemic. He was sent for admission, admitted under the care of Dr. Cadena. Cardiac issue, the patient did have coronary artery disease of many years duration. He had multiple stenting and in 2013 during stenting he had perforation and needed to be rushed for surgery, as per patient he got only 1 bypass. In 2018, he had ICD placement. He is also known to have COPD, started on prednisone 40 years ago and currently on 10 mg of prednisone. He is definitely prednisone dependent. He does have history of paroxysmal atrial fibrillation. He is evaluated for probability of Watchman procedure. He does have chronic swelling of the lower extremity since his open heart surgery, was more pronounced on the left lower extremity, but the right lower extremity also quite swollen. He had at least twice major anemia with very low hemoglobin. He received 2 units of packed red cells during this admission. He is on anti-failure therapy. The patient having problem with blood pressure being very low, unable to tolerate quite a lot of his anti-failure therapy, in fact he is unable to take his Entresto or ARB or beta-ivory. The patient on maximum dose of atorvastatin as well as on amiodarone 100 mg a day. He is on Lasix 60 to 80 mg per day pending on his swelling and his shortness of breath. He does have also urological symptoms. He is on fenestrate 5 mg a day. In summary, the patient does have advanced congestive heart failure, unable to tolerate any medication with the exception of Lasix. He does have coronary artery disease, multiple stenting and one single bypass surgery in 2013. He does have advanced COPD on prednisone for many years duration. He continued to smoke. He does have paroxysmal atrial fibrillation, ICD. He is diabetic, used to be on a lot of medication, but he lost 100 pounds and he is only on metformin now. He does have quite a lot of symptoms almost everybody in his system. He is quite debilitated and he cannot do much of activity. As I mentioned, the patient admitted here for weakness, very low hemoglobin and at his best time he does have class 3 to early class 4 heart failure symptoms. To a certain extent he is currently compensated. He denied having any angina. He does have cough and shortness of breath. He continues to be a heavy smoker. REVIEW OF SYSTEMS: Very extensive as mentioned above and he would try to summarize it for clarity. GENERAL: Debility, dizziness, lightheadedness, unable to do much of activity. PULMONARY: Had cardiac at best class early 4 heart failure and shortness of breath symptoms with cough, swelling, etc. GI: Bloating, indigestion, and constipation. : The patient is on Flomax. HEMATOLOGY: The patient does have bruises all over of many years duration. ENDOCRINE: The patient only on metformin. He is diabetic of many years duration and with weight loss. He is only on metformin. Debility. The patient having multiple fall two months ago, he had pelvic fracture and become wheelchair bound. In summary, the patient's 14 system review as per above in the history and physical and summarized above. SOCIAL HISTORY: He is a . He still smokes. He stopped drinking 25 years ago. 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 HOME MEDICATIONS: Lengthy list includin. Amiodarone 100 mg a day. 2. Atorvastatin 80 mg a day. 3. Lasix 60 to 80 mg a day. 4. Flomax 0.4 mg a day. 5. Fenestrate 5 mg a day. 6. Xopenex. 7. Prednisone 10 mg a day. 8. Folic acid. 9. Magnesium sulfate. 10. Carafate. 11. Protonix. 12. Eliquis 5 mg twice a day. 13. Vitamins. 14. Spiriva. 15. Fish oil. PAST MEDICAL HISTORY: 1. Coronary artery disease, status post multiple PCI in 2014 following a procedure had perforation and he need to have only single-vessel surgery. 2. Advanced systolic congestive heart failure. 3. ICD. 4. Paroxysmal atrial fibrillation. 5. Prostate problem. 6. Diabetes mellitus and end-organ damage. 7. Prostate problem. 8. Debility. 9. Chronic low blood pressure and tendency to fall. 10. Left shoulder surgery. 11. Back surgery. 12. Chronic skin problems. FAMILY HISTORY: Father at age 72 with stroke. He had longstanding history of coronary artery disease prior to that. Mother at age 64 with chronic renal failure. He does have only one sister, no brother. He is doing well and two children, one son and one daughter are doing well. PHYSICAL EXAMINATION: GENERAL: Chronically ill gentleman. VITAL SIGNS: Weight of 193 pounds, blood pressure 100/80, heart rate of 90 and regular, respiratory rate of 18, and temperature of 96 Fahrenheit. HEENT: Pupils are reactive. NECK: No elevation of jugular venous pulsation. Skin bruises all over with abrasion etc. CHEST: Decreased air entry. Decreased lung expansion. HEART: Increased intensity of 2nd heart sounds with ejection systolic murmur. ABDOMEN: Evidence of caput medusae, distended abdomen, probably minimal ascites or just fullness. EXTREMITIES: Lower extremities, bruises all over, markedly edema almost to the knee and the left leg. There is dressing in place. NEUROLOGIC: Awake, alert, and oriented. No motor deficits. Very abnormal gait. The patient is electric wheelchair . LABORATORY DATA: Chest x-ray showing cardiomegaly, ICD. BNP of 256. Hemoglobin on admission 7, following transfusion of 2 units at 9.8, platelet of 139,000. BUN 29, creatinine of 1.1. EKG is sinus rhythm with frequent PACs. Lipid profile; triglycerides of 172, cholesterol of 105, HDL of 35, LDL of 36, TSH of 1.08. IMPRESSION AND PLAN: This is a very and very complex case. His problems are as follows: 1. Advanced lung disease of more than 40 years on steroid and steroid dependency. 2. He continues to smoke. 3. Advanced coronary artery disease, status post multivessel PCI and the latest is open heart surgery for perforated coronary artery in 2013 in [facility]. 4. ICD. 5. The patient evaluated for Watchman procedure. 6. Long-standing persistent atrial fibrillation. 7. Repeated GI bleed. 8. Debility. 9. Multiple bone fractures secondary to falls. 10. Wheelchair bound. 11. Intolerance to anti-failure treatment. 12. Hyperlipidemia. 13. Diabetes mellitus severe end-organ damage. In summary, a very complex case. Medication are discussed and explained. Rationale of treatment are discussed and explained. Since the patient on IV Lasix, we will hold on his starting him on Entresto, but we will advice to try that after resolution of the acute problem. We will follow the patient's progression with you. We will check an echocardiogram. Prognosis is very poor and guarded. All this discussed and explained. Questions are answered. Of note, total time spent with him of almost 90 minutes. MD VALDEMAR Cabrera/ANA LAURA /[id number]
[2020-02-04] MEDS ORDERED: METFORMIN HCL 500 MG TAB PO SCH (16:30)
[2020-02-04] MEDS ORDERED: AMIODARONE HCL 200 MG TAB PO SCH (21:00)
[2020-02-04] MEDS ORDERED: LISINOPRIL 2.5 MG TAB PO SCH (21:00)
[2020-02-04] MEDS ORDERED: ATORVASTATIN 40 MG TAB PO SCH (21:00)
[2020-02-04] MEDS ORDERED: NON-FORMULARY MEDICATION (Atorvastatin Calcium (Lipitor) 80 MG) PO SCH (21:00)
--- NOTE | 2020-02-04 23:06 | Discharge Summary ---
FINAL DISCHARGE DIAGNOSES: 1. Acute exacerbation of congestive heart failure with underlying systolic and diastolic dysfunction with an automated implantable cardioverter-defibrillator. 2. Atrial fibrillation, on anticoagulation. 3. Iron deficiency anemia. 4. Type 2 diabetes. 5. Erythematous oral lesions with ulcerations. 6. History of chronic obstructive pulmonary disease. CONSULTANTS: GI and Cardiology. PHYSICAL EXAMINATION: VITAL SIGNS: Temperature is 96.6, pulse 92, respiratory rate is 18, blood pressure is 111/71, and pulse ox 99% on room air. LABORATORY DATA: Labs show white count 9.7, hemoglobin on admission was 7, now 9.8, hematocrit on admission 25, now 34.2, platelets of 139. Coagulation; PT 14, INR 1, PTT 32. Chemistry; sodium 145, potassium 4.1, chloride 113, bicarbonate 25, anion gap of 11, BUN is 29, creatinine is 1.1, calcium is 7.4. Iron saturation is 5%. Total bilirubin is 0.3, AST 35, ALT was 35. BNP 256, LDL 36. Albumin was 2.7. TSH is 1.081. MICROBIOLOGY: None. IMAGING STUDIES: Chest x-ray, mild chronic appearing changes in the lung. No focal consolidation. HOSPITAL COURSE: This is a 70-year-old male, very noncompliant with his medical care, who comes in as a direct admission from the PCP with underlying anemia and lower extremity edema. The patient is very noncompliant during my interview with him and he was in very appreciative and very belligerent at times during my interview with him. He apparently was found to be anemic at hemoglobin of 7 at the PCP's office and came in to be evaluated by GI and Cardiology. The patient denies any black tarry stool or any bloody stools or any hemoptysis or hematemesis. The patient has had history of iron deficiency in the past. The patient received 2 units of packed RBCs with a hemoglobin of 9.8 prior to being discharged. GI recommended EGD colonoscopy, but the patient refused on several occasions. I have also discussed this with him the importance and he continued to refuse. Cardiology was consulted for cardiac clearance for underlying EGD, colonoscopy, but the patient refused to perform any procedure. On any rate, he wanted to be discharged to home. His hemoglobin is better. I discussed the case with GI and Cardiology, and they recommend discharging to home with outpatient followup with EGD and colonoscopy. The patient will continue with same home medications with no changes. On discharge, the patient was doing well, back to normal baseline with no complaints. The patient was also on IV diuretics for underlying lower extremity edema due to CHF exacerbation. On the day of discharge, vital signs were stable, labs reviewed and stable. The patient is seen, evaluated, and examined thoroughly on the day of discharge. No other complaints. The patient verbalized understanding and agrees to plan of care to follow up as an outpatient with the PCP in 1 week, certified veterinary technician and GI as an outpatient in 1 to 2 weeks' time. The patient was very difficult for management and refuses all procedures. Despite me and the nursing staff discussed with him the importance of having these tests, the patient was still very adamant about having no procedures and wanted to follow up as an outpatient. I discussed with him in the event he notices any bleeding, lightheadedness or dizziness or any complaints, to please come back to the ED for further evaluation. He verbalized understanding. He will follow up with his primary certified veterinary technician in [facility]. MEDICATIONS: See med reconciliation form. DISPOSITION: Home. CONDITION: Stable. DIET: Heart healthy. In the event of any worsening symptoms, the patient was advised to come back to the ED for further evaluation. Discharge summary took greater than 35 minutes. Once again, the patient was cleared for discharge by all consultants. The patient refused to have any procedures done while here in the hospital stay. All he wanted was his blood transfusion, which his hemoglobin is now much improved. MD MARCOS Beckett/ANA LAURA /[id number]
== END 2020-02-04 14:44 | disposition home or self-care (01) | DRG 293 ==
LOC: MED/SURG 16:01
PROVIDERS: ADMIT Internal Medicine; ATTEND Internal Medicine
DX: I11.0 Hypertensive heart disease with heart failure (principal); I50.43 Acute on chronic combined systolic (congestive) and diastolic (congestive) heart failure; I48.0 Paroxysmal atrial fibrillation; Z79.01 Long term (current) use of anticoagulants; J44.9 Chronic obstructive pulmonary disease, unspecified; Z91.81 History of falling; D50.9 Iron deficiency anemia, unspecified; Z95.810 Presence of automatic (implantable) cardiac defibrillator; I25.10 Atherosclerotic heart disease of native coronary artery without angina pectoris; F17.200 Nicotine dependence, unspecified, uncomplicated; E11.9 Type 2 diabetes mellitus without complications; Z99.3 Dependence on wheelchair; E78.5 Hyperlipidemia, unspecified; Z53.29 Procedure and treatment not carried out because of patient's decision for other reasons; G89.4 Chronic pain syndrome; S32.9XXS Fracture of unspecified parts of lumbosacral spine and pelvis, sequela
CPT/HCPCS: 36415; 71046; 80048; 80053; 80061; 82948; 83540; 83880; 84443; 84466; 85025; 85610; 85730; 86850; 86900; 86920; 93005; 93306; 97139; J1940; J7050; J7512; P9016

== ENCOUNTER → 2020-03-04 | Outpatient (CLI) | payer MEDICARE, OTHER ==
--- NOTE | 2020-03-04 16:21 | Diagnostic Imaging Report ---
EXAM: US ABDOMEN COMPLETE DATE: 03/04/2020 3:57 PM INDICATION: Abdominal pain COMPARISON: Abdominal ultrasound 06/24/2018 TECHNIQUE: Transverse and longitudinal smith scale and color doppler sonographic images of the upper abdomen were obtained. FINDINGS: LIVER 18.5 cm in the right midclavicular line. Normal echogenicity of the liver with normal contour, no masses. SPLEEN 9.5 cm in maximum diameter. Normal echogenicity, no masses. GALLBLADDER Sludge in the gallbladder. No gallbladder wall thickening, distension, stone, or pericholecystic fluid. Negative reported sonographic Matta's sign. The gallbladder wall measures 3mm BILE DUCTS No intra nor extra-hepatic biliary dilation. Common bile duct measures 3mm PANCREAS: Visualized portions are normal. RIGHT KIDNEY: 9.0 cm Echogenicity: Normal Collecting System: No hydronephrosis Stones: None Cyst/Mass: None LEFT KIDNEY: 10.4 cm Echogenicity: Normal Collecting System: No hydronephrosis Stones: None Cyst/Mass: None VESSELS: Aorta: Visualized portions are within normal size limits Inferior Vena Cava: Visualized portions are normal Main Portal Vein: 1.2 cm, normal size with hepatopetal flow. FREE FLUID: None IMPRESSION: Sludge in the gallbladder. No sonographic evidence of cholecystitis. Signed by: Cee Cohen MD on 03/04/2020 4:18 PM
--- NOTE | 2020-03-04 16:33 | Diagnostic Imaging Report ---
Exam: KUB - 2 views Indication: Constipation, urinary retention Comparison: None Findings: None objective bowel gas pattern. No free air. Mildly increased stool burden throughout the colon. No acute osseous injury. Degenerative changes of the visualized spine and both hip joints. AICD leads partially visualized. Partially visualized lung bases appear clear. Impression: None objective bowel gas pattern. No free air. Mildly increased stool burden in the colon. Signed by: Cee Cohen MD on 03/04/2020 4:29 PM
== END ==
LOC: US 15:33
PROVIDERS: ATTEND Internal Medicine
DX: R33.9 Retention of urine, unspecified (principal); K59.01 Slow transit constipation
CPT/HCPCS: 74019; 76700

== ENCOUNTER → 2020-03-12 | Outpatient (CLI) | payer MEDICARE, OTHER ==
--- NOTE | 2020-03-12 16:37 | Diagnostic Imaging Report ---
Hepatobiliary Scan with Gallbladder Ejection Fraction Clinical information: Gallbladder disease Report: Following intravenous administration of 6.6 millicuries of Tc-99m mebrofenin, dynamic images of the abdomen in the anterior projection were obtained through 32 minutes. Sincalide (CCK analog) 1.6 micrograms was administered intravenously over 30 minutes with additional imaging for determination of gallbladder ejection fraction. Perfusion to the liver is normal. Extraction of tracer from the blood pool by the liver parenchyma is normal. Tracer is seen promptly within the biliary tract. The gallbladder begins to fill by 10 minutes post-injection of tracer and fills adequately. Tracer is seen in the small bowel during the sincalide infusion. The gallbladder ejection fraction with administration of sincalide is 98% (normal greater than 40%). Impression: 1. Filling of the gallbladder excludes the diagnosis of acute cystic duct obstruction/acute cholecystitis. 2. Normal gallbladder ejection fraction of 98% does not support the clinical diagnosis of chronic cholecystitis/gallbladder dyskinesia. Signed by: Dr. Frieda Marie M.D. on 03/12/2020 4:33 PM
== END ==
LOC: NM 13:50
PROVIDERS: ATTEND Internal Medicine
DX: K82.9 Disease of gallbladder, unspecified (principal)
CPT/HCPCS: 78227; A9537

== ENCOUNTER 2020-03-19 13:00 | Outpatient (RCR) | payer MEDICARE, OTHER ==
[~2020-03-19 13:00] MED LIST changes: +BUPIVACAINE 0.25% 30ML SDV INJ ONE; +LIDOCAINE HCL 1% LOCAL INJ 20 ML VIAL ONE; +MINERAL OIL/PETROLAT/GLYCERI 6OZ BTL ONE
[2020-03-19] MEDS ORDERED: MINERAL OIL/PETROLAT/GLYCERI 6OZ BTL ONE ×2 (14:47→15:08)
== END 2020-03-21 ==
LOC: WCC 13:00
PROVIDERS: ATTEND Internal Medicine Infectious Disease
DX: E11.621 Type 2 diabetes mellitus with foot ulcer (principal); E11.40 Type 2 diabetes mellitus with diabetic neuropathy, unspecified; E11.65 Type 2 diabetes mellitus with hyperglycemia; L97.821 Non-pressure chronic ulcer of other part of left lower leg limited to breakdown of skin; L97.511 Non-pressure chronic ulcer of other part of right foot limited to breakdown of skin; I87.332 Chronic venous hypertension (idiopathic) with ulcer and inflammation of left lower extremity; I87.2 Venous insufficiency (chronic) (peripheral); I89.0 Lymphedema, not elsewhere classified; R60.0 Localized edema; I79.8 Other disorders of arteries, arterioles and capillaries in diseases classified elsewhere; D62 Acute posthemorrhagic anemia; G90.09 Other idiopathic peripheral autonomic neuropathy; I48.21 Permanent atrial fibrillation; I50.9 Heart failure, unspecified; J44.9 Chronic obstructive pulmonary disease, unspecified; K92.2 Gastrointestinal hemorrhage, unspecified
CPT/HCPCS: 29581 ×2; 99203; 99213 ×2; J2001

== ENCOUNTER 2020-04-09 13:09 | Outpatient (RCR) | payer MEDICARE, OTHER ==
[~2020-04-09 13:09] MED LIST changes: -BUPIVACAINE 0.25% 30ML SDV INJ ONE; -LIDOCAINE HCL 1% LOCAL INJ 20 ML VIAL ONE; -MINERAL OIL/PETROLAT/GLYCERI 6OZ BTL ONE
== END 2020-04-20 ==
LOC: WCC 13:09
PROVIDERS: ATTEND Internal Medicine Infectious Disease
DX: E11.621 Type 2 diabetes mellitus with foot ulcer (principal); E11.40 Type 2 diabetes mellitus with diabetic neuropathy, unspecified; E11.65 Type 2 diabetes mellitus with hyperglycemia; L97.821 Non-pressure chronic ulcer of other part of left lower leg limited to breakdown of skin; L97.511 Non-pressure chronic ulcer of other part of right foot limited to breakdown of skin; I87.332 Chronic venous hypertension (idiopathic) with ulcer and inflammation of left lower extremity; I79.8 Other disorders of arteries, arterioles and capillaries in diseases classified elsewhere; R60.0 Localized edema; I89.0 Lymphedema, not elsewhere classified; I87.2 Venous insufficiency (chronic) (peripheral); I80.9 Phlebitis and thrombophlebitis of unspecified site; D62 Acute posthemorrhagic anemia; K92.2 Gastrointestinal hemorrhage, unspecified; G90.09 Other idiopathic peripheral autonomic neuropathy; I48.21 Permanent atrial fibrillation; J44.9 Chronic obstructive pulmonary disease, unspecified

== ENCOUNTER 2020-04-23 10:48 | Outpatient (RCR) | payer MEDICARE, OTHER ==
[2020-04-23] MEDS ORDERED: COLLAGENASE OINTMENT 30 GM TUBE ONE (15:23)
[2020-05-13] MEDS ORDERED: FENTANYL1 EAC1 (19:04)
[2020-05-13] MEDS ORDERED: OXYCODONE HCL15 MG (19:04)
[2020-05-17] MEDS ORDERED: DOXYCYCLINE HY100 MG PO (14:18)
== END 2020-05-21 ==
LOC: WCC 10:48
PROVIDERS: ATTEND Internal Medicine Infectious Disease
DX: E11.40 Type 2 diabetes mellitus with diabetic neuropathy, unspecified (principal); E11.65 Type 2 diabetes mellitus with hyperglycemia; E11.621 Type 2 diabetes mellitus with foot ulcer; L97.511 Non-pressure chronic ulcer of other part of right foot limited to breakdown of skin; L97.821 Non-pressure chronic ulcer of other part of left lower leg limited to breakdown of skin; I87.332 Chronic venous hypertension (idiopathic) with ulcer and inflammation of left lower extremity; R60.0 Localized edema; I79.8 Other disorders of arteries, arterioles and capillaries in diseases classified elsewhere; G90.09 Other idiopathic peripheral autonomic neuropathy; I89.0 Lymphedema, not elsewhere classified; I87.2 Venous insufficiency (chronic) (peripheral); D62 Acute posthemorrhagic anemia; I48.21 Permanent atrial fibrillation; I50.9 Heart failure, unspecified; J44.9 Chronic obstructive pulmonary disease, unspecified; K92.2 Gastrointestinal hemorrhage, unspecified

== ENCOUNTER → 2020-04-29 | Outpatient (CLI) | payer MEDICARE, OTHER ==
--- NOTE | 2020-04-29 14:56 | Diagnostic Imaging Report ---
X-ray abdomen 2 views History: Constipation Comparison: 03/04/2020 Findings: Air distended loops of small bowel. Air distended loops of sigmoid colon. Copious amounts of fecal matter visualized in the ascending colon and rectum. A small calcific density in the lateral right upper quadrant. This could represent abdominal wall calcification. Degenerative changes of the bones. Vascular calcification. AICD lead visualized. Lung bases clear. Impression: Findings consistent with the clinical history of constipation. Signed by: Mario Pickering MD on 04/29/2020 2:52 PM
== END ==
LOC: EDSTATUS 09:23 → RAD 13:28
PROVIDERS: ATTEND Internal Medicine
DX: K59.01 Slow transit constipation (principal); R33.9 Retention of urine, unspecified
CPT/HCPCS: 74018

== ENCOUNTER 2020-05-13 14:25 | Inpatient (IN) | payer MEDICARE, OTHER ==
[~2020-05-13] VITALS: Ht 177.8 cm; Wt 77.6 kg
[2020-05-13 15:36] VITALS: BP 112/63
[2020-05-13 16:12] LABS: BASOPHILS % 0.6 % (0.0-1.0); EOSINOPHILS # (AUTO) 0.4 (0.0-0.4); EOSINOPHILS % 6.1 % (0.0-6.0); HEMOGLOBIN 12.4 g/dL (14.0-18.0); LYMPHOCYTES # (AUTO) 0.5 (1.0-3.2); MEAN CORPUSCULAR HEMOGLOBIN 26.3 pg (28-32); MEAN CORPUSCULAR VOLUME 84.9 fL (81-99); MONOCYTES # (AUTO) 1.3 (0.2-0.8); MONOCYTES % 17.9 % (4.4-11.3); NEUTROPHILS # (AUTO) 4.8 (2.1-6.9); NEUTROPHILS % 68.1 % (38.7-80.0); RED BLOOD COUNT 4.71 x10e6/uL (4.3-5.7); RED CELL DISTRIBUTION WIDTH 18.8 % (11.7-14.4)
[2020-05-13 16:13] LABS: PLATELET COUNT 91 x10e3/uL (140-360)
[2020-05-13 16:20] LABS: INR 1.09; PROTHROMBIN TIME 14.7 seconds (11.9-14.5)
[2020-05-13 16:21] LABS: PARTIAL THROMBOPLASTIN TIME 42.4 seconds (23.8-35.5)
[2020-05-13 16:28] LABS: ALANINE AMINOTRANSFERASE 18 IU/L (0-55); ALBUMIN 2.1 g/dL (3.5-5.0); ALBUMIN/GLOBULIN RATIO 0.8 (0.8-2.0); ALKALINE PHOSPHATASE 230 IU/L (40-150); ANION GAP 12.2 mmol/L (8-16); BLOOD UREA NITROGEN 15 mg/dL (7-26); BUN/CREATININE RATIO 17 (6-25); CALCIUM 8.8 mg/dL (8.4-10.2); CARBON DIOXIDE 25 mmol/L (22-29); CHLORIDE 108 mmol/L (98-107); CREATININE, SERUM 0.88 mg/dL (0.72-1.25); EST GLOMERULAR FILTRATION RATE > 60 ML/MIN (60-); GLUCOSE 61 mg/dL (74-118); POTASSIUM 4.2 mmol/L (3.5-5.1); SODIUM 141 mmol/L (136-145)
--- NOTE | 2020-05-13 16:38 | Diagnostic Imaging Report ---
EXAMINATION: CHEST SINGLE (PORTABLE) INDICATION: COPD, shortness of breath COMPARISON: None FINDINGS: LINES/TUBES:Left chest AICD. LUNGS:The lungs are well-inflated. No focal consolidation or pulmonary edema. PLEURA:No pleural effusion or pneumothorax. MEDIASTINUM:The cardiomediastinal silhouette appears normal in size and shape. Atherosclerotic calcifications of the thoracic aorta. BONES/SOFT TISSUES:No acute osseous injury. ABDOMEN:No free air under the diaphragm. IMPRESSION: No focal pneumonia or pulmonary edema. Signed by: Cee Cohen MD on 05/13/2020 4:35 PM
[2020-05-13 16:45] LABS: CHOL/HDL RATIO 5.2 (3.9-4.7)
[2020-05-13 16:47] LABS: THYROID STIMULATING HORMONE 2.549 uIU/mL (0.350-4.940)
[2020-05-13] MEDS ORDERED: PIPER-TAZ 3.375 GM 50 ML IV ONE (17:00)
[2020-05-13] MEDS: FUROSEMIDE INJ 10 MG/ML 4 ML VIAL IV SCH (17:00)
[2020-05-13] MEDS ORDERED: VANCOMYCIN 1GM/NS 250 ML 250 ML IV ONE (17:30)
[2020-05-13 18:13] VITALS: BP 112/63
[2020-05-13] MEDS: LEVALBUTEROL HCL SOLN NEBU 0.63 MG/3 ML NEB INH SCH ×2 (19:00→23:00)
--- NOTE | 2020-05-13 19:00 | NUR ---
Received nursing shift report from morning nurse. Pt alert and oriented to name. c/o mild generalized pain, morning nurse verifying home meds. Caregiver help reposition Pt in bed. Pt refuses to put on gown and take clothes off, even after offering warm blankets. Bed low and locked. Call light within reach.
[2020-05-13] MEDS ORDERED: FENTANYL1 EAC1 (19:04)
[2020-05-13] MEDS ORDERED: OXYCODONE HCL15 MG (19:04)
[2020-05-13] MEDS ORDERED: OXYCODONE HCL IR 15 MG TAB PO PRN ×2 (19:15→20:15)
[2020-05-13] MEDS ORDERED: NITROGLYCERIN 0.4 MG SUBL SL PRN (19:15)
[2020-05-13] MEDS ORDERED: FUROSEMIDE INJ 10 MG/ML 4 ML VIAL IV ONE (19:30)
[2020-05-13 20:00] VITALS: BP 116/70
[2020-05-13] MEDS: FENTANYL 50 MCG/HR PATCH TD SCH (21:00)
[2020-05-13] MEDS: LORATADINE 10 MG TAB PO SCH (21:49)
[2020-05-13] MEDS: AMIODARONE HCL 200 MG TAB PO SCH (21:50)
[2020-05-13] MEDS: ATORVASTATIN 40 MG TAB PO SCH (21:50)
[2020-05-13] MEDS: OXYCODONE HCL IR 5 MG TAB PO PRN (23:00)
[2020-05-14] VITALS (8 sets, daily range): BP systolic 114–138; BP diastolic 69–89
[2020-05-14] MEDS: LEVALBUTEROL HCL SOLN NEBU 0.63 MG/3 ML NEB INH SCH ×5 (03:00→19:00)
[2020-05-14] MEDS ORDERED: FUROSEMIDE INJ 10 MG/ML 4 ML VIAL IV ONE (04:04)
[2020-05-14] MEDS ORDERED: PIPER-TAZ 3.375 GM 50 ML IV ONE (04:04)
[2020-05-14] MEDS ORDERED: VANCOMYCIN 1GM/NS 250 ML 250 ML IV ONE (04:04)
--- NOTE | 2020-05-14 04:04 | Diagnostic Imaging Report ---
EXAMINATION: CHEST XRAY LINE PLACEMENT INDICATION: Check PICC line placement COMPARISON: Chest radiograph 05/13/2020. FINDINGS: TUBES and LINES: Interval placement of a right arm PICC which terminates in the SVC. Left-sided AICD with leads in unchanged position. LUNGS: Lungs are well inflated. There is no evidence of pneumonia or pulmonary edema. Linear subsegmental atelectasis versus scarring in the right lower lung. PLEURA: No pleural effusion or pneumothorax. HEART AND MEDIASTINUM: The cardiomediastinal silhouette is unremarkable. There are atherosclerotic calcifications within the aorta. BONES AND SOFT TISSUES: No acute osseous abnormality. UPPER ABDOMEN: No free air under the diaphragm. IMPRESSION: Interval placement of right arm PICC which terminates in the SVC. No pneumothorax. Signed by: Dr. Elizabeth Carranza MD on 05/14/2020 4:01 AM
[2020-05-14] MEDS: SODIUM CHLORIDE 0.9% 1000ML 1,000 ML IV SCH ×2 (04:15→15:45)
[2020-05-14 06:20] LABS: BASOPHILS % 0.5 % (0.0-1.0); EOSINOPHILS # (AUTO) 0.5 (0.0-0.4); EOSINOPHILS % 6.2 % (0.0-6.0); HEMATOCRIT 38.9 % (38.2-49.6); HEMOGLOBIN 12.2 g/dL (14.0-18.0); LYMPHOCYTES % 13.3 % (18.0-39.1); MEAN CORPUSCULAR HEMOGLOBIN 27.1 pg (28-32); MEAN CORPUSCULAR HGB CONC 31.4 g/dL (31-35); MEAN CORPUSCULAR VOLUME 86.3 fL (81-99); MONOCYTES # (AUTO) 1.2 (0.2-0.8); MONOCYTES % 16.6 % (4.4-11.3); NEUTROPHILS # (AUTO) 4.7 (2.1-6.9); PLATELET COUNT 113 x10e3/uL (140-360); RED BLOOD COUNT 4.51 x10e6/uL (4.3-5.7); RED CELL DISTRIBUTION WIDTH 18.8 % (11.7-14.4)
[2020-05-14 06:41] LABS: ALANINE AMINOTRANSFERASE 18 IU/L (0-55); ALBUMIN/GLOBULIN RATIO 0.7 (0.8-2.0); ALKALINE PHOSPHATASE 218 IU/L (40-150); ANION GAP 15.2 mmol/L (8-16); BLOOD UREA NITROGEN 14 mg/dL (7-26); BUN/CREATININE RATIO 17 (6-25); CALCIUM 8.2 mg/dL (8.4-10.2); CARBON DIOXIDE 23 mmol/L (22-29); CHLORIDE 107 mmol/L (98-107); CREATININE, SERUM 0.83 mg/dL (0.72-1.25); EST GLOMERULAR FILTRATION RATE > 60 ML/MIN (60-); POTASSIUM 4.2 mmol/L (3.5-5.1); SODIUM 141 mmol/L (136-145)
[2020-05-14 06:59] LABS: GLUCOSE 48 mg/dL (74-118)
--- NOTE | 2020-05-14 07:00 | NUR ---
received report, pt is alert resting in bed, no s/s of distress. pt's blood glucose is 48, instructed the pt to drink orange juice provided by RN. call light within reach
--- NOTE | 2020-05-14 07:30 | NUR ---
rechecked blood sugar, it is now 60
[2020-05-14] MEDS: PREDNISONE 5 MG TAB PO SCH ×2 (08:51→18:17)
[2020-05-14] MEDS: PANTOPRAZOLE SOD 40 MG TABEC PO SCH (08:51)
[2020-05-14] MEDS: DOCUSATE SODIUM 100 MG CAP PO SCH (08:51)
[2020-05-14] MEDS: MULTIVITAMINS/MINERALS TAB PO SCH (08:51)
[2020-05-14] MEDS: TAMSULOSIN HCL 0.4 MG CAP PO SCH (08:51)
[2020-05-14] MEDS: FOLIC ACID 1 MG TAB PO SCH ×2 (08:51→18:17)
[2020-05-14] MEDS: CYANOCOBALAMIN 1,000 MCG TAB PO SCH (08:52)
[2020-05-14] MEDS ORDERED: DEXTROSE 50% SYRINGE 50 ML IV SCH (10:00)
[2020-05-14 10:03] LABS: PLATELET ESTIMATE SLIGHTLY DECREASED; PLATELET MORPHOLOGY COMMENT NORMAL; POIKILOCYTOSIS SLIGHT
[2020-05-14 10:04] LABS: SCHISTOCYTES FEW
[2020-05-14] MEDS: NYSTATIN SUSPENSION 5 ML UDC PO SCH ×2 (12:00→18:17)
[2020-05-14] MEDS: CEFEPIME 1GM/NS 0.9% 50 ML 50 ML IV SCH ×2 (12:15→20:39)
[2020-05-14] MEDS: OXYCODONE HCL IR 5 MG TAB PO PRN (12:35)
[2020-05-14] MEDS ORDERED: METHYLPREDNISOLONE SOD SUCC 40 MG/ML VIAL 1ML IV SCH (13:15)
--- NOTE | 2020-05-14 13:39 | NUR ---
WOUND CARE CONSULT FOR 70 YO MALE HX OF CELLULITIS BILATERAL LOWER EXTREM CLAY 18 ON CONSERVATIVE PUP STATUS AND INTERVENTIONS AND VISCO MATTRESS LABS: WBC-7.46 HGB_12.3 GLUCOSE-48 SKIN ASSESSMENT COMPLETE PATIENT PRESENTS WITH BILATERAL LOWER EXTREMITIES CELLULITIS RIGHT LOWER LEG WITH NO OPEN AREAS ONLY SCAB 1CM X1CM DORSAL ASPECT LEFT LOWER LEG HAS SLOUGH COVERED ULCERATION 4.5CM X5CM EXTREMITIES 1 PLUS PITTING EDEMA PATIENT UNABLE TO MAINTAIN COBAN AT THIS TIME EXPRESSED PAIN OF 10 WHEN REAPPLICATION ATTEMPTED DRESSING REMOVED AND FOAM COVERING PLACED RECOMMENDATIONS: NURSING TO CONTINUE TO MAINTAIN CONSERVATIVE PUP STATUS AND INTERVENTIONS AND VISCO MATTRESS NURSING TO CONTINUE TO ASSIST PATIENT OUT OF BED FOR MEALS AND MUCH TOLERATED NURSING TO CONTINUE TO ASSIST PATIENT NEEDED WITH MEALS AND NUTRITIONAL SUPPLEMENTS TO ENSURE PROPER REQUIREMENTS FOR HEALING NURSING TO CONTINUE TO OFFLOAD FEET AND HEELS NEEDED WITH PILLOW SUSPENSION WHEN IN BED NURSING TO CLEAN LEFT LOWER LEG SLOUGH COVERED ULCERATION WITH NORMAL SALINE DAILY AND APPLY SANTYL OINTMENT WITH 4X4 AND COVER WITH ALLEVYN FOAM DRESSING Addendum: 05/14/20 at 1347 by Alfredito Smith RN Amended: Links added.
--- NOTE | 2020-05-14 14:09 | Consultation ---
DATE OF CONSULTATION: 05/14/2020 ID Consult REASON FOR CONSULTATION: Cellulitis. Thank you, Dr. Polanco, for asking me to see this patient. HISTORY OF PRESENT ILLNESS: The patient is a 70-year-old man referred for cellulitis. He was admitted from primary care provider's office with progressive redness of the left leg. He has had chronic bilateral leg swelling worse on the left. The patient has been undergoing outpatient wound care, but the condition deteriorated lately. He denies fever or chills. However, he reports sore mouth, which resulted in decreased oral intake. PAST MEDICAL HISTORY: Diabetes mellitus type 2, hypertension, hyperlipidemia, coronary artery disease, status post stenting, atrial fibrillation, chronic obstructive pulmonary disease and chronic back pain. PAST SURGICAL HISTORY: Coronary artery bypass, lower back surgery 4 times. ALLERGIES: ALBUTEROL. MEDICATIONS: He received vancomycin 1 g IV piggyback once and Zosyn 3.375 g IV piggyback once. FAMILY HISTORY: Significant for diabetes mellitus type 2, coronary artery disease, chronic obstructive pulmonary disease. SOCIAL HISTORY: He quit smoking cigarettes. No alcohol use. REVIEW OF SYSTEMS: As per history of present illness. He reports sore mouth and epigastric pain. He also reports painful left leg swelling and worsening ulcer of the left leg. He denies cough, shortness of breath, vomiting, diarrhea, abdominal pain, and dysuria. PHYSICAL EXAMINATION: GENERAL: No acute distress. VITAL SIGNS: T-max 98.5, pulse rate 108, respiratory rate 21, blood pressure 122/80, weight 171 pounds. HEENT: Normocephalic and atraumatic. There is no icterus or injection of conjunctivae. There is no ear or nasal discharge. There is moist oral mucosa with white patches on tongue. No pharyngeal erythema or exudate. NECK: Supple. There is no JVD or meningismus. LUNGS: Decreased breath sounds bilaterally. HEART: With normal S1 and S2. ABDOMEN: Soft and nontender. EXTREMITIES: There is 1+ edema of the right leg and 2+ edema of the left leg. There is a compressive dressing of the left leg and foot. There is erythema, warmth, and tenderness of proximal left leg. SKIN: There is erythema of the left leg. ENVIRONMENTAL ENGINEERING TECHNICIAN: Awake, alert, oriented to person, place, and time. Nonfocal. LABORATORY AND DIAGNOSTICS: WBC 7460, hemoglobin 12.2, hematocrit 38.9, platelets 113,000, neutrophils 63, lymphocytes 13.3, monocytes 16.6, eosinophils 6.2, basophils 0.5. BUN 14, creatinine 0.83, blood glucose 60, SARS-CoV2 PCR pending. Blood culture also pending. Chest x-ray showed no focal pneumonia or pulmonary edema. IMPRESSION: 1. Cellulitis of the left leg. 2. Ulcer of the left leg. 3. Hypothyroidism. 4. Oral candidiasis. PLAN: 1. Check venous doppler ultrasound of the left lower extremity. 2. Continue vancomycin 1 g IV piggyback q.12 hours and cefepime 1 g IV piggyback q.8 hours. Start nystatin swish and swallow. 3. Elevate left lower extremity. 4. Consult Wound Care Service. MD IVAN Lovelace/ANA LAURA /[id number]
--- NOTE | 2020-05-14 16:30 | NUR ---
pt has order for Lumbar CT. Pt states that he usually takes something for panic attacks prior to having imaging done. got new orders from Dr. Polanco for xanax 0.5mg X1 dose.
[2020-05-14] MEDS ORDERED: ALPRAZOLAM 0.5 MG TAB PO ONE (16:45)
--- NOTE | 2020-05-14 16:48 | NUR ---
pt refused Xanax, he called his daughter and the daughter stated that he takes 2mg Ativan prior to having imaging done for panic attacks. notified Dr. Polanco, no new orders at this time
[2020-05-14] MEDS: VANCOMYCIN 1GM/NS 250 ML 250 ML IV SCH (18:17)
[2020-05-14] MEDS: ENOXAPARIN SOD INJ 40 MG/0.4 ML SYR SC SCH (18:17)
[2020-05-14] MEDS: FUROSEMIDE INJ 10 MG/ML 4 ML VIAL IV SCH (18:17)
[2020-05-14] MEDS: AMIODARONE HCL 200 MG TAB PO SCH (20:39)
[2020-05-14] MEDS: ATORVASTATIN 40 MG TAB PO SCH (20:39)
[2020-05-14] MEDS: LORATADINE 10 MG TAB PO SCH (20:39)
--- NOTE | 2020-05-14 20:41 | History and Physical ---
CHIEF COMPLAINT: Left lower extremity cellulitis with generalized weakness. HISTORY OF PRESENT ILLNESS: This is a 70-year-old male. He has multiple comorbidities of note, history of type 2 diabetes, hypertension, hyperlipidemia, coronary artery disease, history of atrial fibrillation, who was sent in by his PCP due to a left lower extremity cellulitis, has been ongoing for the last 3 to 4 days. The patient is a very poor historian. Information being obtained by the daughter, who I spoke on the phone. She reports that over the last week or so she has noticed that his left lower extremity continued to get worse and since then he has been progressively declining in terms of his weakness. No reports of any fever. He does have a wound care nurse, who comes to the house and she noticed that she saw some questionable pus seen on the left lower extremity ulceration, prompting evaluation and sent to the hospital for further evaluation and management. No reports of any cough, congestion or any fever at home. No reports of any chest pain or any shortness of breath. The patient was seen and evaluated at bedside on the medical floor. He is currently doing well with no other issues at this time. REVIEW OF SYSTEMS: Pertinent positive: Generalized weakness, left lower extremity cellulitis with redness. The rest of 14-point review of systems are reviewed with the patient and are negative. ALLERGIES: ALBUTEROL. MEDICATIONS: Amiodarone, Lipitor, Zyrtec, vitamin B12, Colace, Nexium, fentanyl patch, folic acid, multivitamins, nitroglycerin, oxycodone, prednisone scheduled, and tamsulosin. PAST MEDICAL HISTORY: He has a history of atrial fibrillation, hyperlipidemia, acid reflux, chronic pain syndrome, BPH, type 2 diabetes, hypertension. PAST SURGICAL HISTORY: He has had local debridements of the left lower extremity due to underlying wound infection. PAST FAMILY HISTORY: Hypertension, diabetes. SOCIAL HISTORY: No drugs. No alcohol. Does not smoke. Good social support. PHYSICAL EXAMINATION: VITAL SIGNS: Temperature is 98.4, pulse 105, respiratory rate is 20, blood pressure 119/76, pulse ox 96% on 2 L nasal cannula. He is on oxygen at home, but not continuously. GENERAL: Not in acute distress. Alert, oriented x3. Cooperative on examination. HEENT: Head is normocephalic and atraumatic. Eyes; pupils are equal, round, and reactive to light bilaterally. PULMONARY: Clear to auscultation bilaterally. No wheezing, no rales, no rhonchi. He is chronically on home O2 occasionally. CARDIOVASCULAR: Positive S1, S2. No murmurs, rubs, or gallops appreciated. ABDOMEN: Soft, nontender, nondistended to palpation. Bowel sounds are present. MUSCULOSKELETAL: Strength is 5/5 throughout. No evidence of any muscle deficits on examination. SKIN: Intact except for the left lower extremity shows significant erythema with gauze wrapped in the mid aspect of the dacosta. EXTREMITIES: No edema. Good range of motion throughout. LABORATORY DATA: White count was 7.4, hemoglobin 12, hematocrit 38.9, and platelets of 113. Coagulation; PT 14.7, INR 1.09, PTT 42. Chemistry; sodium 141, potassium is 4.2 chloride 107, bicarb 23, anion gap of 15, BUN 14, creatinine 0.83, glucose is 48. Repeat glucose was 60 this morning at 7:22. He is eating now. He is doing much better. Total bilirubin is 0.5, AST 30, ALT 18, alkaline phosphatase is 218, total protein 4.9. LDL was 50. TSH is 2.5. Serology; dixon virus not detected. Blood ABG, pH is 7.47, pCO2 of 32, and bicarbonate of 23. Dixon virus is pending. MICROBIOLOGY: Blood cultures are pending. IMAGING STUDIES: Chest x-ray shows no focal pneumonia or pulmonary edema. Catheter has been placed. Right PICC arm. IMPRESSION: 1. Left lower extremity cellulitis. 2. Generalized weakness concerning secondary to underlying cellulitis. 3. Type 2 diabetes. 4. Hypertension. 5. History of coronary artery disease. PLAN: At this time from the cellulitis standpoint ID has been consulted. The patient maintained on IV antibiotic therapy. PICC line has been ordered as well. As for the type 2 diabetes, we will continue with insulin sliding scale and Accu-Cheks. His last blood glucose level was found to be 60. The patient is currently on steroids, which would help with the hypoglycemia. As for his blood pressure, his blood pressure is stable. We are going to resume same home medications. I did consult with Physical Therapy and Occupational Therapy to help assist this patient's generalized weakness. I will continue with his cardioprotective medications including anti-platelet therapy. Since he continues to complain of weakness, we will go ahead and get a UA with culture and consult with Pulmonary due to underlying COPD and Dr. Roman from Wound Care to monitor the wounds. The patient did have local wound care by the nursing staff today as well. Otherwise, I discussed the plan of care with the patient and the patient's daughter by phone at bedside and they verbalized understanding and agree of plan of care. MD MARCOS Beckett/ANA LAURA /[id number]
--- NOTE | 2020-05-14 22:02 | Consultation ---
DATE OF CONSULTATION: 05/14/[address] Polanco for asking me to see Mr. Duncan in consultation. REASON FOR CONSULTATION: 1. Cellulitis of lower extremity. 2. 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 3. COPD. 4. Chronic back pain. HISTORY: A 70-year-old male with history of cellulitis to the leg. He has had overall decline in function over time. Case is complicated by the fact that he has chronic back pain and surgery some years ago, which resulted in a right footdrop. Recently, he has had the decline in function was seen by management for cellulitis. I am being asked to evaluate for rehab needs because of his impaired gait and mobility. PAST MEDICAL HISTORY: Diabetes, hypertension, hyperlipidemia, coronary artery disease, AFib, COPD, chronic back pain. PAST SURGICAL HISTORY: Include CABG and low back surgery 4 times, years ago resulting in right leg weakness and foot drop. ALLERGIES: ALBUTEROL. FAMILY HISTORY: Positive for diabetes, coronary disease, and COPD. HABITS: Quit smoking. No drinking. SOCIAL HISTORY: Lives with his family in a one-kyung home. He says he has a bad tailbone and ambulates sometimes using a walker for short distances, but using an electric scooter for longer distances. REVIEW OF SYSTEMS: Essentially negative except for the above findings. LABORATORY DATA: White cell count of 7.4, hemoglobin 12.2, hematocrit 38.9, platelets of 113. Sodium is 141, potassium 4.2, BUN of 14, creatinine is 0.3. Venous Doppler, results are pending. PHYSICAL EXAMINATION: GENERAL: The patient is awake and alert. He is in pain. EYES: Gaze conjugate. NOSE: nasal cannula. NECK: No JVD. HEART: Regular. LUNGS: Diminished breath sounds. ABDOMEN: Obese. EXTREMITIES: Has definite right footdrop, hip hiking, and a high steppage gait to the right leg, which is chronic and unchanged. Manual muscle testing, shoulder flexion and extension was limited. He could not really move his shoulders much. Elbow flexion extension, resources representative is actually pretty strong, 4+ to 5/5 strength bilaterally. I was trying to examine the lower extremities when the patient said he has to urinate so his granddaughter helped to get him up and they went to the restroom, which during that time I noticed his high steppage gait. Otherwise unchanged to his leg per his report. There is cellulitis and erythema of the legs. IMPRESSION: 1. Lower extremity cellulitis, left leg. 2. Right footdrop chronic. 3. Chronic back pain. 4. Chronic obstructive pulmonary disease. 5. Diabetes. 6. Hypertension. PLAN: Therapies will be started to work on gait and transfers. Need to assess for use of AFOs and see that it might help with his gait. However, his back pain seems to be his biggest barrier with regard to pain. We will follow along with you. Thank you once again for allowing me to participate in this very interesting patient. Lawrence Thayer DO RPL/MODL /[id number]
--- NOTE | 2020-05-14 22:16 | Consultation ---
DATE OF CONSULTATION: Wound Consultation Thank you, Dr. Polanco, for asking me to see this patient for chronic nonhealing ulcer of the left leg. HISTORY OF PRESENT ILLNESS: A 70-year-old male patient, smokes since age 11 and stopped a few years in between, continues to smoke, coronary artery disease, developed wound to the left leg more than 2 months back. Following at wound clinic, nonhealing, was seen by primary care doctor, Dr. Jossue Cadena, found to have infection, cellulitis, and nonhealing ulcer. The patient was admitted for failed outpatient wound care and antibiotic treatment. PAST MEDICAL HISTORY: Diabetes mellitus type 2, hypertension, coronary artery disease, status post stenting and coronary bypass surgery, atrial fibrillation, COPD, and chronic back pain. PAST SURGICAL HISTORY: Coronary artery bypass surgery and lower back surgery x4. PERSONAL HISTORY: Chronic smoker from age 11, not heavy alcohol use. REVIEW OF SYSTEMS: All other systems reviewed, no complaints reported. MEDICATIONS: Lasix 40 mg IV daily, fentanyl 50 mcg every 72 hours, atorvastatin 80 mg daily, pantoprazole 40 mg daily, oxycodone 50 mg p.o. q.6 hourly p.r.n., tamsulosin 0.4 mg p.o. daily, Xopenex q.4 hourly, folic acid 1 mg p.o. daily, multivitamin one p.o. daily, amiodarone 100 mg daily, and Nystatin. ALLERGIES: TO ALBUTEROL, HOWEVER, THE PATIENT IS TOLERATING XOPENEX. PHYSICAL EXAMINATION: VITAL SIGNS: Height 70 inches, weight 171 pounds. HEENT: Normal. NECK: No JVD. LUNGS: Bilateral air entry diminished. ABDOMEN: Distended. Ascites present. Dilated veins noted. CVS: S1 and S2. Irregular. Soft systolic murmur present. Surgical scar seen in the sternum from bypass. EXTREMITIES: Lower extremities, bilateral edema present, chronic venous stasis and skin wrinkling present. Bilateral leg redness consistent with cellulitis. Left anterior leg, the patient has multiple wounds, full-thickness ulcer with exposed subcutaneous tissue and some necrotic tissue noted. Both feet is slightly cold consistent with PVD. 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 PLAN: Apply Santyl, Hydrogel, and Mepilex to the left leg. I recommend arterial Doppler. Ammonia level and abdominal ultrasound recommended. Thank you for consultation. We will follow up. MD GABY Khalil/ANA LAURA /[id number]
[2020-05-15] VITALS (8 sets, daily range): BP systolic 103–114; BP diastolic 57–72
[2020-05-15] MEDS: NYSTATIN SUSPENSION 5 ML UDC PO SCH ×4 (00:40→17:58)
--- NOTE | 2020-05-15 02:00 | NUR ---
PATIENT REFUSED IV FLUIDS. STATES IT MAKES HIM URINATE FREQUENTLY AND THAT HE CAN'T SLEEP.
[2020-05-15] MEDS: CEFEPIME 1GM/NS 0.9% 50 ML 50 ML IV SCH ×3 (04:19→21:10)
[2020-05-15] MEDS: VANCOMYCIN 1GM/NS 250 ML 250 ML IV SCH ×2 (06:19→17:57)
--- NOTE | 2020-05-15 06:44 | NUR ---
PATIENT HAD SKIN TEAR TO LEFT ELBOW AND LEFT UPPER ARM. BUMP HIMSELF TO WAL WHEN HE WENT TO THE BATHROOM CLAIMED BY ENTERPRISE MANAGER. DRESSING DONE. UNABLE TO OBTAIN URINE PATIENT UNABLE TO CATCH THRU A HUT OR URINAL. PATIENT STATES I'M NOT GONNA KILL MYSELF JUST TO GIVE YOU URINE.
--- NOTE | 2020-05-15 07:00 | NUR ---
RCD PT AT BED PT IS ALERT AND ORIENTED RESTING ON BED IV PATENT BY SALINE FLUSH BED LOW AND LOCKED CALL LIGHT IN REACH
[2020-05-15] MEDS: LEVALBUTEROL HCL SOLN NEBU 0.63 MG/3 ML NEB INH SCH ×5 (07:20→23:55)
[2020-05-15 08:12] LABS: BLOOD UREA NITROGEN 14 mg/dL (7-26); BUN/CREATININE RATIO 16 (6-25); CALCIUM 7.9 mg/dL (8.4-10.2); CARBON DIOXIDE 27 mmol/L (22-29); CHLORIDE 106 mmol/L (98-107); CREATININE, SERUM 0.87 mg/dL (0.72-1.25); EST GLOMERULAR FILTRATION RATE > 60 ML/MIN (60-); GLUCOSE 93 mg/dL (74-118); SODIUM 141 mmol/L (136-145)
[2020-05-15 08:27] LABS: BASOPHILS % 0.4 % (0.0-1.0); EOSINOPHILS # (AUTO) 0.1 (0.0-0.4); HEMATOCRIT 34.6 % (38.2-49.6); HEMOGLOBIN 10.7 g/dL (14.0-18.0); LYMPHOCYTES # (AUTO) 0.8 (1.0-3.2); LYMPHOCYTES % 11.9 % (18.0-39.1); MEAN CORPUSCULAR HEMOGLOBIN 25.9 pg (28-32); MEAN CORPUSCULAR HGB CONC 30.9 g/dL (31-35); MEAN CORPUSCULAR VOLUME 83.8 fL (81-99); MONOCYTES # (AUTO) 1.3 (0.2-0.8); MONOCYTES % 19.2 % (4.4-11.3); NEUTROPHILS # (AUTO) 4.6 (2.1-6.9); NEUTROPHILS % 66.1 % (38.7-80.0); PLATELET COUNT 109 x10e3/uL (140-360); RED BLOOD COUNT 4.13 x10e6/uL (4.3-5.7); RED CELL DISTRIBUTION WIDTH 18.8 % (11.7-14.4)
[2020-05-15] MEDS: TAMSULOSIN HCL 0.4 MG CAP PO SCH (09:00)
[2020-05-15] MEDS: DOCUSATE SODIUM 100 MG CAP PO SCH (09:00)
[2020-05-15] MEDS: CYANOCOBALAMIN 1,000 MCG TAB PO SCH (09:00)
[2020-05-15] MEDS: MULTIVITAMINS/MINERALS TAB PO SCH (09:00)
[2020-05-15] MEDS ORDERED: COLLAGENASE OINTMENT 30 GM TUBE TP SCH (09:00)
[2020-05-15] MEDS: FOLIC ACID 1 MG TAB PO SCH ×2 (09:00→16:49)
[2020-05-15] MEDS: PREDNISONE 5 MG TAB PO SCH ×2 (09:00→16:49)
[2020-05-15] MEDS: PANTOPRAZOLE SOD 40 MG TABEC PO SCH (09:00)
[2020-05-15] MEDS: COLLAGENASE 5 GM TUBE TOP SCH (09:00)
--- NOTE | 2020-05-15 12:03 | Progress Note ---
DATE: 05/15/2020 SUBJECTIVE: Mr. Duncan seen on rounds today. He is doing about the same. According to family, he did get his x-ray of his lumbar spine done, but I could not find even the order or the results that are in the computer. They are working on that. Clinically, he is feeling a bit better according to him. LABORATORY DATA: White cell count of 6.9, hemoglobin 10.7, hematocrit 34.6, platelets of 109. Sodium is 141, potassium 4.5, BUN of 14, creatinine 0.87. COVID is still pending. Physical therapy is getting ready to see him and working on mobility, transfer, and gait training. He is already moving around fairly well, but has potential to improve overall. Discussed with the patient. ASSESSMENT AND PLAN: The patient with chronic back pain at this time. Right now, his pain has not got bad. Overall, he says it is worse compared to before. We will get his x-ray just to see how he is doing. Leg cellulitis. PLAN: Continue supportive care. Discussed with family. Spoke with nursing. He will be possibly getting anxiety medicine before his x-ray. Lawrence Thayer DO RPL/MODL /[id number]
--- NOTE | 2020-05-15 13:09 | Consultation ---
DATE OF CONSULTATION: 05/15/2020 Cardiac Consultation REASON FOR CONSULTATION: Multiple medical health problems including cardiac vascular cellulitis and atrial fibrillation, etc. HISTORY: 70-year-old gentleman, very poor historian. The patient's activities are very limited. He is in a wheelchair. He does have multiple falls. He does have history of fractured pelvis. Few months back his activities are quite limited. He does have chronic cellulitis and dressing over the left dacosta. He has been to his wound care center and his PCP had several admission, several courses of antibiotics. He felt with antibiotic treatment his leg swelling got worse and his redness and cellulitis got worse, so he is admitted to this institution. He was seen by ID and Medicine. Cardiac consultation is obtained because of the complex cardiac history. Cardiac white, the patient's it systems manager is Dr. Xiang Kramer. He is known to have atrial fibrillation, advanced heart failure, advanced COPD, paroxysmal atrial fibrillation, and very severe advanced peripheral arterial vascular disease. The patient had multiple PCI in 2013, following that he need to be alberts to surgery and had one vessel bypass surgery. In 2018, he had ICD placement. He is also known to have COPD and he is on prednisone as frequently. In fact, he is prednisone dependent. He does have chronic swelling of the lower extremities since his open-heart surgery. Furthermore, the patient had several episodes of GI bleed and his anticoagulation needs to be adjusted or even to be stopped. The patient does have a chronically low blood pressure. He is unable to tolerate his anti-failure therapy. It is very difficult to give him an ARB, large dose of beta-ivory or Entresto. The patient is on amiodarone as well as statin. He is on diuretics. In summary, the patient with very severe advanced heart failure, unable to tolerate large dose of medication. He does have advanced COPD and ICD. He is also diabetic with severe end-organ damage. He does have chronic swelling and venous insufficiency of the lower extremities. The patient is very much debilitated. Regarding his lower extremity, he is seen in possibly Vascular Surgery in [facility]. He had multiple stenting procedure of the lower extremities. He has followed with him regularly. It seems he does have advanced PVD and the plan was only for medical therapy. Surprisingly, he does not have angina, but he is very debilitated. His activities are quite limited. He does have swelling of the lower extremity, shortness of breath on minimal exertion, cough, orthopnea, and paroxysmal nocturnal dyspnea. He continued to be heavy smoker. REVIEW OF SYSTEMS: Very extensive, will be summarized for clarity. GENERAL: No fever, no chills. Debility, dizziness, lightheadedness. Unable to do much of activity. PULMONARY AND CARDIAC: Severe shortness of breath on minimal activity. Surprisingly no angina, advanced CHF like symptoms. GI: Bloating, indigestion and constipation repeated GI bleed. : The patient is having difficulty urination, take Flomax. HEMATOLOGY: Easy bruising. ENDOCRINE: The patient is diabetic with severe end-organ damage. BONE: The patient did have several falls, several fractures including pelvic fracture. He is wheelchair bound, PVD, severe peripheral arterial vascular disease. Venous insufficiency and chronic swelling of the lower extremity on top of his pulmonary hypertension and congestive heart failure. SOCIAL HISTORY: He is a . He still smokes. He stopped drinking many years ago. 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 HOME MEDICATIONS: Include; amiodarone 100 mg a day, atorvastatin 80 mg a day, Lasix 60 to 80 mg a day, Flomax 0.4 mg a day, finasteride 5 mg a day, Xopenex, prednisone 10 mg a day, Eliquis 5 mg twice a day, which was stopped because of repeated bleed, Protonix 40 mg a day, folic acid, loratadine and other p.r.n. medication in addition to inhaler and local care for his lower extremity. ALLERGIES: ALBUTEROL, IT IS NOT TRUE ALLERGY. WITH THAT THE PATIENT DOES HAVE PALPITATIONS. PAST MEDICAL HISTORY: 1. CAD, status post multiple PCI in 2013 followed by single-vessel bypass surgery. 2. Advanced CHF. 3. ICD. 4. Paroxysmal atrial fibrillation. 5. Prostate problem. 6. Diabetes mellitus with end-organ damage. 7. Debility. 8. Chronic low blood pressure. 9. Tendency to fall. 10. Left shoulder surgery. 11. Back surgery. 12. Peripheral arterial vascular disease, status post multiple procedures by Vascular Surgery. 13. Chronic leg swelling. 14. Chronic skin ulcer. 15. Repeated cellulitis. FAMILY HISTORY: Father with CVA at age 72. He had coronary artery disease for many years prior to that. Mother of chronic renal failure complication. No brothers. One sister, two children, one son and one daughter. PHYSICAL EXAMINATION: GENERAL: This gentleman is chronically ill. Height of 5 feet 10 inches and weight of 171 pounds. VITAL SIGNS: Blood pressure 110/70, heart rate of 90, respiratory rate of 18, and temperature of 98 Fahrenheit. HEENT: Pupils are reactive. NECK: No elevation of jugular venous pulsation. SKIN: Bruises noted, abrasions noted. CHEST: Decreased air entry. Decreased lung expansion. HEART: Increased intensity of 2nd heart sound. Ejection systolic murmur. ABDOMEN: Distended abdomen. EXTREMITIES: Severe edema. Dressing is noted on the left dacosta. Severe redness and changes of both lower extremities are noted. LABORATORY DATA: White blood cell count of 6.9, hemoglobin 10.7, hematocrit 34%, and platelet count of 109,000. Sodium of 141, potassium of 4, BUN of 14, and creatinine of 0.9. Triglycerides of 110, total cholesterol of 89, HDL of 17, LDL of 50, TSH of 2.6. No EKG is available. Chest x-ray showing cardiomegaly and ICD in place. IMPRESSION AND PLAN: 1. Bilateral leg cellulitis, more pronounced on the left lower extremity, failed medical therapy at home. 2. Debility. 3. Advanced lung disease and pulmonary hypertension, on steroids and steroid dependency. 4. The patient continued to smoke. 5. Advanced CAD. 6. ICD. 7. History of atrial fibrillation in the past. The patient evaluated for Watchman. I am not quite sure of the procedure done or not. 8. Repeated GI bleed. 9. Debility. 10. Multiple fall and fractures. 11. Wheelchair bound. 12. Intolerance to anti-failure therapy. 13. Hyperlipidemia. 14. Diabetes mellitus with severe end-organ damage. In summary, a very very complex case. The main issue now is failed treatment for cellulitis. He is here for IV antibiotics. We will observe the patient for limb status with you. We will try to adjust his anti-failure medication to the maximum he can tolerate. Deep venous thrombosis prophylaxis is needed. We will follow the patient's progression with you, pending on his course, further steps to be done. MD VALDEMAR Cabrera/ANA LAURA /[id number]
--- NOTE | 2020-05-15 14:26 | NUR ---
PATIENT AND FAMILY TALKED TO DR PEDRAZA REGARDING CT ON LUMBAR SPINE ,THEY REFUSED IT
--- NOTE | 2020-05-15 15:06 | NUR ---
DRESSING CHANGED ON LEFT LOWER LEG
[2020-05-15] MEDS: FUROSEMIDE INJ 10 MG/ML 4 ML VIAL IV SCH (16:49)
[2020-05-15] MEDS: ENOXAPARIN SOD INJ 40 MG/0.4 ML SYR SC SCH (16:50)
--- NOTE | 2020-05-15 17:40 | Progress Note ---
DATE: 05/15/2020 Medicine Progress Note SUBJECTIVE: The patient reportedly states feeling much better today. He is much more awake, alert, and oriented on exam. He actually worked a little bit with physical therapy, but he refused to work a whole lot with them when I spoke with physical therapy plus the patient refuses CT of the lumbar spine. LABORATORY DATA: White count is 6.9, hemoglobin is 10.7, hematocrit is 34.6 and platelets was 109. His coagulation PT 14, INR 1.09, PTT 42. Chemistry, sodium 141, potassium 4, chloride 106, bicarb 27, anion gap of 12. BUN is 14, creatinine is 0.87, glucose is 93, calcium is 7.9. His troponins were negative. Ammonia level was 72, within normal range. TSH is 2.5. Coronavirus is pending. Hepatitis panel is pending. MICROBIOLOGY: Blood cultures, no growth. IMAGING STUDIES: Lower extremity venous Doppler showed no evidence of any DVT. PHYSICAL EXAMINATION: VITAL SIGNS: Temperature is 98.2, pulse 90, respiratory rate is 20, blood pressure 107/57, pulse ox is 94% on 2 L nasal cannula chronically. GENERAL: No acute distress. Alert and oriented x3. Cooperative on examination. HEENT: Head is normocephalic and atraumatic. Eyes; pupils are equal, round, and reactive to light bilaterally. PULMONARY: Clear to auscultation bilaterally. No wheezing, no rales, no rhonchi. No crackles appreciated. CARDIOVASCULAR: Positive S1, S2. No murmurs, rubs, or gallops appreciated. GI: Abdomen is soft, nontender, nondistended to palpation. Bowel sounds are present. MUSCULOSKELETAL: Strength is 5/5 throughout. No evidence of any muscle deficits on examination. No weakness appreciated. NEUROLOGIC: Cranial nerves 2 through 12 grossly intact. No evidence of any neurological deficits on exam. SKIN: Intact. Warm to touch. Good cap refill. PSYCHIATRIC: Normal affect and mood. EXTREMITIES: No edema. Good range of motion throughout IMPRESSION: 1. Left lower extremity cellulitis. 2. Generalized weakness, concerning secondary to underlying cellulitis from infection. 3. Type 2 diabetes. 4. Hypertension. 5. History of coronary artery disease. PLAN: At this time from a cellulitis standpoint, ID is following. He is on IV antibiotic therapy. In relation to his generalized weakness, he is actually improved tremendously. He is working with physical therapy, but he refused to work with them a whole lot today. We will monitor the cultures closely. Continue with IV antibiotic therapy. Continue with PT and OT. His diabetes and his blood pressure medications were adjusted accordingly. We will continue with same plan of care. As for his COPD, I did go ahead and consult with Pulmonary, which they are monitoring that very closely and they will come and evaluate him. In terms of his CAD, we will continue with same cardioprotective medications. As for the wound in the left lower extremity, I read Wound Care's note, the patient will just need local wound care. No further workup needed. Continue with IV antibiotic therapy. CONSULTANTS: 1. ID: IV antibiotics. 2. Physical Medicine library sales consultant, work with PT and OT. 3. Wound care: Local wound care as needed with solutions and gauze. 4. Cardiology: No further workup needed. I discussed the plan of care with the patient at bedside, with his granddaughter at bedside, as well as with the nurse present throughout the entire conversation, and they verbalized understanding and agreed with plan of care. MD MARCOS Beckett/ANA LAURA /[id number]
--- NOTE | 2020-05-15 18:29 | Diagnostic Imaging Report ---
Exam: Left shoulder radiographs-3 views; left shoulder radiograph-1 view History: Fall. Comparison: None. Findings/Impression: Diffuse osteopenia. No evidence of acute fracture or dislocation in the left shoulder or elbow. Lateral elbow radiograph is somewhat limited secondary to obliquity. No definite joint effusion. Soft tissue edema surrounding the elbow. Superior subluxation of the humeral head in relation to the acromion, suggestive of rotator cuff tear. Moderate degenerative changes of the shoulder. Mild degenerative changes in the elbow. Partially seen left chest wall pacemaker. Impression: No acute osseous abnormality. Soft tissue edema in the elbow. Signed by: Dr. Elizabeth Carranza MD on 05/15/2020 6:26 PM
--- NOTE | 2020-05-15 18:45 | NUR ---
PT RESTING ON BED BED SIDE REPORT GIVEN TO ONCOMING NURSE
[2020-05-15 19:09] LABS: BILIRUBIN,URINE NEGATIVE (NEGATIVE); CLARITY,URINE CLEAR (CLEAR); COLOR,URINE YELLOW (YELLOW); KETONES,URINE TRACE (NEGATIVE); LEUKOCYTE ESTERASE ,URINE NEGATIVE (NEGATIVE); NITRITE,URINE NEGATIVE (NEGATIVE); PROTEIN,URINE DIPSTICK NEGATIVE (NEGATIVE); URINE UROBILINOGEN 0.2 mg/dL (0.2 - 1)
[2020-05-15 19:18] LABS: BACTERIA,URINE RARE /HPF; CALCIUM OXALATE CRYSTALS,UR FEW (FEW)
[2020-05-15] MEDS: AMIODARONE HCL 200 MG TAB PO SCH (20:52)
[2020-05-15] MEDS: LORATADINE 10 MG TAB PO SCH (21:10)
[2020-05-15] MEDS: ATORVASTATIN 40 MG TAB PO SCH (21:10)
--- NOTE | 2020-05-15 22:26 | Consultation ---
DATE OF CONSULTATION: Pulmonary Consultation REASON FOR CONSULT: COPD. HISTORY OF PRESENT ILLNESS: Mr. Duncan is a regular patient of Dr. Paramjit Cadena, who came in with shortness of breath and pain in the left lower extremity. The patient has a history of diabetes, hypertension, hyperlipidemia, coronary artery disease, and atrial fibrillation. He has been a smoker for the last 35 plus years, one pack per day. He denies any alcohol use. He is currently not having any chest pain, [id number] shortness of breath. REVIEW OF SYSTEMS: GENERAL: Denies any fever or chills. HEAD: Denies any head trauma. ENT: Denies any earache. CVS: Denies any chest pain. RESPIRATORY: Shortness of breath. The rest of the review of systems are negative except as in HPI. PAST MEDICAL HISTORY: Atrial fibrillation, hyperlipidemia, chronic pain, and type 2 diabetes. PAST SURGICAL HISTORY: Debridement of the lower extremity. FAMILY HISTORY: Hypertension. PHYSICAL EXAMINATION: VITAL SIGNS: Temperature 98.2, pulse of 95, blood pressure 107/57, respiratory rate is 18 to 20, and O2 saturation 94% on 2 L. HEENT: Head is atraumatic and normocephalic. NECK: Supple. CHEST: Decreased air entry. HEART: S1, S2 audible. ABDOMEN: Soft. EXTREMITIES: No pedal edema. NEUROLOGICAL: Awake and alert. LABORATORY DATA: Reviewed. Coronavirus COVID-19 testing was negative. ASSESSMENT/PLAN: Mr. Duncan is a 70-year-old male with chronic obstructive pulmonary disease, admitted with lower extremity cellulitis. PLAN: IV antibiotics per ID recommendation. Continue other treatment. The patient will be continued on the Xopenex nebs as ordered. He is on prednisone 5 mg b.i.d., which is chronic, which can be weaned off as an outpatient. He use his home oxygen as needed. He has a concentrator. Chest x-ray reviewed, not showing any pneumonia. Continue current treatment. He will need to follow up with me as an outpatient in 2-3 weeks. Thank you for this consult. MD ROMULO [place]/ANA LAURA /[id number]
[2020-05-16] VITALS (8 sets, daily range): BP systolic 108–129; BP diastolic 73–85
[2020-05-16] MEDS: NYSTATIN SUSPENSION 5 ML UDC PO SCH ×5 (00:38→23:42)
[2020-05-16] MEDS: LEVALBUTEROL HCL SOLN NEBU 0.63 MG/3 ML NEB INH SCH ×5 (03:00→20:00)
[2020-05-16] MEDS: CEFEPIME 1GM/NS 0.9% 50 ML 50 ML IV SCH ×3 (04:38→20:30)
[2020-05-16] MEDS: VANCOMYCIN 1GM/NS 250 ML 250 ML IV SCH (06:00)
--- NOTE | 2020-05-16 07:10 | NUR ---
RCD PT AT BED PT IS ALERT AND ORIENTED RESTING ON BED IV PATENT BY [facility] FAMILY AT BED SIDE BED LOW AND LOCKED CALL LIGHT IN REACH
[2020-05-16] MEDS: MULTIVITAMINS/MINERALS TAB PO SCH (09:00)
[2020-05-16] MEDS: DOCUSATE SODIUM 100 MG CAP PO SCH (09:00)
[2020-05-16] MEDS: CYANOCOBALAMIN 1,000 MCG TAB PO SCH (09:00)
[2020-05-16] MEDS: TAMSULOSIN HCL 0.4 MG CAP PO SCH (09:00)
[2020-05-16] MEDS: FUROSEMIDE INJ 10 MG/ML 4 ML VIAL IV SCH (09:00)
[2020-05-16] MEDS: FOLIC ACID 1 MG TAB PO SCH ×2 (09:00→16:54)
[2020-05-16] MEDS: PANTOPRAZOLE SOD 40 MG TABEC PO SCH (09:00)
[2020-05-16] MEDS: COLLAGENASE 5 GM TUBE TOP SCH (09:00)
[2020-05-16] MEDS: PREDNISONE 5 MG TAB PO SCH ×2 (09:00→16:54)
[2020-05-16 09:56] LABS: % IRON SATURATION 8 % (15-50); IRON 18 ug/dL (65-175); TOTAL IRON BINDING CAPACITY 221 ug/dL (261-478); TRANSFERRIN 158 mg/dL (174-364)
--- NOTE | 2020-05-16 11:30 | NUR ---
DRESSING DONE ON THE LEFT LOWER LEG WITH HYDROGEL AND SANTYL ,
--- NOTE | 2020-05-16 12:00 | NUR ---
PATIENT AND FAMILY REFUSED NICOTINE PATCH
[2020-05-16] MEDS: NICOTINE 14 MG/EA PATCH TOP SCH ×2 (12:10→14:08)
[2020-05-16] MEDS: ENOXAPARIN SOD INJ 40 MG/0.4 ML SYR SC SCH (16:54)
--- NOTE | 2020-05-16 18:38 | NUR ---
PT RESTING ON BED BED SIDE REPORT GIVEN TO ONCOMING NURSE
--- NOTE | 2020-05-16 18:39 | Progress Note ---
DATE: 05/16/2020 Medicine Progress Note SUBJECTIVE: The patient reports he is doing well. He reports he is at his baseline. No changes at this time. I spoke with Cardiology, no further workup needed. No overnight events. The patient is refusing all diuretics. Despite having lower extremity edema, he continues to refuse. PHYSICAL EXAMINATION: VITAL SIGNS: Temperature 98.6, pulse 106, respiratory rate is 20, blood pressure 129/85, pulse ox 97% on 2 L nasal cannula, chronically. GENERAL: In no acute distress. Alert and oriented x3. Cooperative on examination. PULMONARY: Clear to auscultation bilaterally. No wheezes, rales, or rhonchi. No crackles appreciated. CARDIOVASCULAR: Positive S1, S2. No murmurs, rubs, or gallops appreciated. ABDOMEN: Soft, nondistended, nontender to palpation. Bowel sounds present. MUSCULOSKELETAL: Strength is 5/5 throughout. No evidence of muscle deficits on examination. No weakness appreciated. NEUROLOGICAL: Cranial nerves II through XII grossly intact. No evidence of any neurological deficits on exam. SKIN: Intact. Warm to touch. Good cap refill. PSYCHIATRIC: Normal affect and Mood. EXTREMITIES: No edema. Good range of motion throughout. LABORATORY FINDINGS: Show white count 6.9, hemoglobin 10.7, hematocrit is 34.6, platelets of 109. Chemistry, sodium 141, potassium 4, chloride 106, bicarb 27, anion gap of 12, BUN 14, creatinine is 0.87, calcium is 7.9. His iron saturation was 8%. Coronavirus not detected. Microbiology, blood cultures no growth. Urine cultures were negative. IMAGING STUDIES: Shoulder x-ray was negative. Elbow x-ray was negative. There is some soft tissue edema in the elbow area with no fracture noted. Lower extremity venous Doppler showed no evidence of DVT. IMPRESSION: 1. Left lower extremity cellulitis. 2. Generalized weakness, presumed from underlying infection, now improved. 3. Type 2 diabetes. 4. Hypertension. 5. History of coronary artery disease. PLAN: At this time, I had spoken with all the consultants, ID, Wound Care and Cardiology. The patient is anxious to go home soon. We will continue with IV antibiotics. I discussed with ID about giving me an oral regimen for his antibiotics for discharge. For wound care, the patient goes to [facility] and he will continue to do that as an outpatient. As per Cardiology, I spoke with Cardiology about his findings. Family is not interested in doing any kind of procedures at this hospital stay. They will like to follow up with their primary legal adviser and their team in relation to possible venous stasis ulcer or arterial occlusion leading to his significant wound in the left lower extremity. At this time, no further workup needed inpatient by Cardiology as per family's wishes. We will continue with aggressive IV antibiotic therapy. Pulmonary consult for COPD, which we will follow up as an outpatient. Plan is to discharge home tomorrow once I get oral antibiotic regimen by ID. CONSULTANTS INVOLVED: 1. ID, IV antibiotics. 2. Physical Medicine Rehab for physical therapy, occupational therapy. 3. Wound Care for local wound care solutions and gauze. 4. Cardiology: No further workup needed. I discussed the plan of care with the patient, granddaughter, nursing staff present at the bedside and they verbalized understanding and agreed to plan of care. MD MARCOS Beckett/ANA LAURA /[id number]
[2020-05-16] MEDS: LORATADINE 10 MG TAB PO SCH (20:30)
[2020-05-16] MEDS: ATORVASTATIN 40 MG TAB PO SCH (20:30)
[2020-05-16] MEDS: FENTANYL 50 MCG/HR PATCH TD SCH (20:30)
[2020-05-17] VITALS: BP 115/79
[2020-05-17] MEDS: LEVALBUTEROL HCL SOLN NEBU 0.63 MG/3 ML NEB INH SCH ×4 (00:35→11:10)
[2020-05-17 04:00] VITALS: BP 108/74
[2020-05-17] MEDS: CEFEPIME 1GM/NS 0.9% 50 ML 50 ML IV SCH ×2 (04:30→12:16)
[2020-05-17 04:37] LABS: BASOPHILS % 0.4 % (0.0-1.0); EOSINOPHILS # (AUTO) 0.2 (0.0-0.4); EOSINOPHILS % 2.3 % (0.0-6.0); HEMATOCRIT 35.2 % (38.2-49.6); HEMOGLOBIN 10.9 g/dL (14.0-18.0); LYMPHOCYTES # (AUTO) 0.7 (1.0-3.2); LYMPHOCYTES % 9.3 % (18.0-39.1); MEAN CORPUSCULAR HEMOGLOBIN 25.8 pg (28-32); MEAN CORPUSCULAR VOLUME 83.2 fL (81-99); MONOCYTES # (AUTO) 1.1 (0.2-0.8); MONOCYTES % 14.5 % (4.4-11.3); NEUTROPHILS # (AUTO) 5.4 (2.1-6.9); PLATELET COUNT 77 x10e3/uL (140-360); RED BLOOD COUNT 4.23 x10e6/uL (4.3-5.7); RED CELL DISTRIBUTION WIDTH 18.3 % (11.7-14.4)
[2020-05-17 04:54] LABS: ALANINE AMINOTRANSFERASE 15 IU/L (0-55); ALBUMIN 1.8 g/dL (3.5-5.0); ALBUMIN/GLOBULIN RATIO 0.7 (0.8-2.0); ALKALINE PHOSPHATASE 198 IU/L (40-150); ANION GAP 9.7 mmol/L (8-16); BLOOD UREA NITROGEN 11 mg/dL (7-26); BUN/CREATININE RATIO 16 (6-25); CALCIUM 7.7 mg/dL (8.4-10.2); CARBON DIOXIDE 28 mmol/L (22-29); CHLORIDE 106 mmol/L (98-107); CREATININE, SERUM 0.68 mg/dL (0.72-1.25); EST GLOMERULAR FILTRATION RATE > 60 ML/MIN (60-); GLUCOSE 90 mg/dL (74-118); POTASSIUM 3.7 mmol/L (3.5-5.1); SODIUM 140 mmol/L (136-145)
[2020-05-17] MEDS: NYSTATIN SUSPENSION 5 ML UDC PO SCH ×2 (05:55→12:35)
[2020-05-17 07:38] VITALS: BP 97/77
[2020-05-17 08:00] VITALS: BP 97/77
[2020-05-17] MEDS: FUROSEMIDE INJ 10 MG/ML 4 ML VIAL IV SCH (08:54)
[2020-05-17] MEDS: DOCUSATE SODIUM 100 MG CAP PO SCH (08:54)
[2020-05-17] MEDS: TAMSULOSIN HCL 0.4 MG CAP PO SCH (08:54)
[2020-05-17] MEDS: PANTOPRAZOLE SOD 40 MG TABEC PO SCH (08:55)
[2020-05-17] MEDS: CYANOCOBALAMIN 1,000 MCG TAB PO SCH (08:55)
[2020-05-17] MEDS: FOLIC ACID 1 MG TAB PO SCH (08:55)
[2020-05-17] MEDS: MULTIVITAMINS/MINERALS TAB PO SCH (08:55)
[2020-05-17] MEDS: PREDNISONE 5 MG TAB PO SCH (08:55)
[2020-05-17] MEDS: COLLAGENASE 5 GM TUBE TOP SCH (09:00)
[2020-05-17] MEDS ORDERED: AMIODARONE HCL 200 MG TAB PO SCH (10:15)
[2020-05-17 11:10] VITALS: BP 114/79
[2020-05-17] MEDS ORDERED: DOXYCYCLINE HY100 MG PO (14:18)
--- NOTE | 2020-05-17 15:38 | NUR ---
Discharge instructions and prescription were given to the patient and his granddaughter. Patient verbalized understanding, states he will follow up with his own wound care doctors, and PCP and heart doctor as scheduled. PICC line was removed from LUE with tip intact. They did not want wheelchair assistance to go downstairs, patient stated he had his own scooter and grandaughter can get his walker and their ride is downstairs.
--- NOTE | 2020-05-18 00:45 | Discharge Summary ---
FINAL DISCHARGE DIAGNOSES: 1. Left lower extremity cellulitis-improved. 2. Lower extremity PAD. 3. Generalized weakness-improved, all presumed from underlying lower extremity cellulitis. 4. Type 2 diabetes. 5. Hypertension. 6. History of coronary artery disease. CONSULTANTS: ID, Physical Medicine Rehab, Wound Care and Cardiology. PHYSICAL EXAMINATION: VITAL SIGNS: He is afebrile, normotensive. Respiratory rate is good. LABORATORY DATA: Labs show white count 7.3, hemoglobin 10.9, hematocrit 35, platelets of 77,000. Chemistry; sodium 140, potassium 3.7, chloride 106, bicarb 20, anion gap of 9.7, BUN is 11, creatinine 0.68, glucose 90, A1c 5.6, calcium 7.7, iron saturation is 8%. LFTs within normal range. Ammonia level was 72, normal. TSH is 2.5. Urinalysis negative. Dixon virus not detected. Microbiology none. IMAGING STUDIES: Chest x-ray was found to be negative. Elbow x-ray negative. Shoulder x-ray negative. HOSPITAL COURSE: A 70-year-old male with multiple comorbidities. He comes in as a direct admission with complaints of generalized weakness and worsening left lower extremity cellulitis. While here, ID was consulted. The patient maintained on IV antibiotic therapy with much improvement of the left lower extremity. He was discharged on oral doxycycline for 2 weeks. He did have a venous Doppler of the left lower extremity that showed no evidence of DVT, but the arterial Doppler consistent with concerns of PAD. Cardiology was consulted and evaluated the patient. The patient refused any interventions here, in fact wanted to follow up with his primary laboratory monitor for any interventions. I spoke with Cardiology, Cardiology agreed for him to follow up with his primary laboratory monitor for further management and care. I did have Wound Care involved as well. He does have ulceration in the left anterior dacosta, which local wound care was provided. He does follow up with the [facility]. Again, he wanted to follow up with his own primary wound care doctor. The patient did well while here in the hospital stay, was able to ambulate with no issues. I did have PT and OT involved as well as a rehab physician. The patient refused any kind of placement, correction or any kind of inpatient rehab. No further cardiac workup, no further wound care workup, ID cleared the patient as well with oral antibiotics. I discussed the plan of care with the patient at bedside with his granddaughter and his daughter by phone and they verbalized understanding. The patient was adamant about being discharged to home as he states he has other things to do. The patient was cleared for discharge by all consultants. On the day of discharge, vital signs were stable and labs reviewed and stable. The patient seen and evaluated examined thoroughly on the day of discharge, no other complaints. The patient verbalized understanding and agreed to plan of care to followup as an outpatient with primary care physician in 1 week and his primary laboratory monitor and wound care team at a later date for further management care of the left lower extremity. He could follow up with ID in 2 weeks' time. MEDICATIONS: See medication reconciliation form. DISPOSITION: Home. CONDITION: Stable. DIET: Heart healthy. In the event of any worsening symptoms, the patient advised to come back to the ED for further evaluation. Discharge summary took greater than 35 minutes. MD MARCOS Beckett/ANA LAURA /[id number]
== END 2020-05-17 15:52 | disposition home or self-care (01) | DRG 603 ==
LOC: MED/SURG2 14:40
PROVIDERS: ADMIT Internal Medicine; ATTEND Internal Medicine
PROC: 02HV33Z Insertion of Infusion Device into Superior Vena Cava, Percutaneous Approach (ICD-10-PCS; principal; 2020-05-14)
DX: L03.116 Cellulitis of left lower limb (principal); E11.52 Type 2 diabetes mellitus with diabetic peripheral angiopathy with gangrene; I96 Gangrene, not elsewhere classified; L97.828 Non-pressure chronic ulcer of other part of left lower leg with other specified severity; L97.818 Non-pressure chronic ulcer of other part of right lower leg with other specified severity; B37.0 Candidal stomatitis; R18.8 Other ascites; Z79.01 Long term (current) use of anticoagulants; I25.10 Atherosclerotic heart disease of native coronary artery without angina pectoris; I10 Essential (primary) hypertension; Z11.59 Encounter for screening for other viral diseases; E11.649 Type 2 diabetes mellitus with hypoglycemia without coma; Z79.4 Long term (current) use of insulin; E78.5 Hyperlipidemia, unspecified; G89.4 Chronic pain syndrome; N40.0 Benign prostatic hyperplasia without lower urinary tract symptoms; E11.51 Type 2 diabetes mellitus with diabetic peripheral angiopathy without gangrene; I87.2 Venous insufficiency (chronic) (peripheral); Z74.09 Other reduced mobility; Z95.1 Presence of aortocoronary bypass graft; Z95.5 Presence of coronary angioplasty implant and graft; F17.200 Nicotine dependence, unspecified, uncomplicated; E11.622 Type 2 diabetes mellitus with other skin ulcer; I48.0 Paroxysmal atrial fibrillation; Z99.3 Dependence on wheelchair; Z91.81 History of falling; I27.20 Pulmonary hypertension, unspecified
CPT/HCPCS: 36415; 36569; 36600; 71045; 80048; 80053; 80061; 80202; 81001; 82140; 82805; 82948; 82977; 83540; 84075; 84443; 84466; 84484; 85025; 85610; 85651; 85730; 86140; 87040; 87086; 93005; 93925; 93971; 94640; 97139; J0692; J1650; J1940; J2543; J3370; J7030; J7512; U0002

== ENCOUNTER 2020-06-04 10:34 | Outpatient (RCR) | payer MEDICARE, OTHER ==
[~2020-06-04 10:34] MED LIST changes: +COLLAGENASE OINTMENT 30 GM TUBE ONE; +DOXYCYCLINE HY100 MG PO; +FENTANYL1 EAC1; +MINERAL OIL/PETROLAT/GLYCERI 6OZ BTL ONE; +OXYCODONE HCL15 MG
== END 2020-06-21 ==
LOC: WCC 10:34
PROVIDERS: ATTEND Internal Medicine Infectious Disease
DX: E11.40 Type 2 diabetes mellitus with diabetic neuropathy, unspecified (principal); E11.65 Type 2 diabetes mellitus with hyperglycemia; I87.332 Chronic venous hypertension (idiopathic) with ulcer and inflammation of left lower extremity; L97.821 Non-pressure chronic ulcer of other part of left lower leg limited to breakdown of skin; R60.0 Localized edema; I87.2 Venous insufficiency (chronic) (peripheral); I89.0 Lymphedema, not elsewhere classified; I79.8 Other disorders of arteries, arterioles and capillaries in diseases classified elsewhere; G90.09 Other idiopathic peripheral autonomic neuropathy; K92.2 Gastrointestinal hemorrhage, unspecified; D62 Acute posthemorrhagic anemia; I48.21 Permanent atrial fibrillation; I50.9 Heart failure, unspecified; J44.9 Chronic obstructive pulmonary disease, unspecified

== ENCOUNTER → 2020-06-18 | Outpatient (CLI) | payer MEDICARE, OTHER ==
[~2020-06-18] MED LIST changes: -COLLAGENASE OINTMENT 30 GM TUBE ONE; -MINERAL OIL/PETROLAT/GLYCERI 6OZ BTL ONE
--- NOTE | 2020-06-20 18:53 | Diagnostic Imaging Report ---
Bone Scan, three-phase Reason for exam: Chronic venous insufficiency in the lower extremities. Non-healing ulcers and left foot and left lower leg. Radiopharmaceutical: Tc-99m MDP 26.8 mCi IV right hand Comparison: None recent Following intravenous administration of the radiopharmaceutical, dynamic flow and immediate blood pool images of the lower legs followed by 2.5-hour delayed images of the lower legs were obtained. Flow and blood pool images show very mildly increased tracer to the left lower leg compared to the right without focal abnormality. The delayed images show no abnormal focal accumulation of tracer in the lower legs. Impression: No scan evidence of osteomyelitis in the lower legs. Mild soft tissue inflammatory process in the left lower leg. Signed by: Dr. Frieda Marie M.D. on 06/20/2020 6:49 PM
== END ==
LOC: NM 14:01
PROVIDERS: ATTEND Internal Medicine Infectious Disease
DX: I87.332 Chronic venous hypertension (idiopathic) with ulcer and inflammation of left lower extremity (principal); L97.821 Non-pressure chronic ulcer of other part of left lower leg limited to breakdown of skin
CPT/HCPCS: 78315; A9503

== ENCOUNTER 2020-07-02 13:44 | Outpatient (RCR) | payer MEDICARE, OTHER ==
[2020-07-02] MEDS ORDERED: COLLAGENASE OINTMENT 30 GM TUBE ONE ×2 (13:53→16:37)
[2020-07-02] MEDS ORDERED: LIDOCAINE/PRILOCAINE 2.5-2.5% KIT ONE (13:53)
== END 2020-07-21 ==
LOC: WCC 13:44
PROVIDERS: ATTEND Internal Medicine Infectious Disease
DX: E11.40 Type 2 diabetes mellitus with diabetic neuropathy, unspecified (principal); E11.65 Type 2 diabetes mellitus with hyperglycemia; I87.332 Chronic venous hypertension (idiopathic) with ulcer and inflammation of left lower extremity; I87.331 Chronic venous hypertension (idiopathic) with ulcer and inflammation of right lower extremity; L97.821 Non-pressure chronic ulcer of other part of left lower leg limited to breakdown of skin; L97.811 Non-pressure chronic ulcer of other part of right lower leg limited to breakdown of skin; L03.115 Cellulitis of right lower limb; L03.116 Cellulitis of left lower limb; R60.0 Localized edema; I87.2 Venous insufficiency (chronic) (peripheral); I79.8 Other disorders of arteries, arterioles and capillaries in diseases classified elsewhere; I89.0 Lymphedema, not elsewhere classified; D62 Acute posthemorrhagic anemia; G90.09 Other idiopathic peripheral autonomic neuropathy; K92.2 Gastrointestinal hemorrhage, unspecified; I50.9 Heart failure, unspecified; I48.21 Permanent atrial fibrillation; J44.9 Chronic obstructive pulmonary disease, unspecified

== ENCOUNTER → 2020-07-08 | Outpatient (CLI) | payer MEDICARE, OTHER ==
[2020-07-08 11:36] LABS: HEMOGLOBIN 11.1 g/dL (14.0-18.0)
[2020-07-08 11:48] LABS: INR 1.04; PROTHROMBIN TIME 14.1 seconds (11.9-14.5)
[2020-07-08 11:49] LABS: PARTIAL THROMBOPLASTIN TIME 45.2 seconds (23.8-35.5)
[2020-07-08 11:54] LABS: BLOOD UREA NITROGEN 16 mg/dL (7-26); BUN/CREATININE RATIO 16 (6-25); CREATININE, SERUM 1.02 mg/dL (0.72-1.25); EST GLOMERULAR FILTRATION RATE > 60 ML/MIN (60-)
--- NOTE | 2020-07-08 13:14 | Diagnostic Imaging Report ---
EXAMINATION: CHEST XRAY LINE PLACEMENT INDICATION: Line placement COMPARISON: Chest radiograph 05/13/2020 FINDINGS: LINES/TUBES:Right PICC line terminates in the SVC. Left AICD unchanged. LUNGS:The lungs are moderately inflated. Mild bibasilar patchy opacities. PLEURA:No pleural effusion or pneumothorax. MEDIASTINUM:The cardiomediastinal silhouette appears normal in size and shape. Atherosclerotic calcifications of the thoracic aorta. BONES/SOFT TISSUES:No acute osseous injury. ABDOMEN:No free air under the diaphragm. IMPRESSION: Right PICC line terminates in the SVC. Mild bibasilar patchy opacities, most likely subsegmental atelectasis. Signed by: Cee Cohen MD on 07/08/2020 1:11 PM
== END ==
LOC: DX 11:16
PROVIDERS: ATTEND Internal Medicine Infectious Disease
DX: L03.116 Cellulitis of left lower limb (principal); L03.115 Cellulitis of right lower limb
CPT/HCPCS: 36415; 36569; 71045; 82565; 84520; 85014; 85049; 85610; 85730

== ENCOUNTER 2020-07-23 15:07 | Outpatient (RCR) | payer MEDICARE, OTHER ==
[~2020-07-23 15:07] MED LIST changes: +COLLAGENASE OINTMENT 30 GM TUBE ONE; +FLUOCINONIDE 0.05% 1 EA/15 GM TUBE ONE; +MINERAL OIL/PETROLAT/GLYCERI 6OZ BTL ONE
== END 2020-08-21 ==
LOC: WCC 15:07
PROVIDERS: ATTEND Internal Medicine Infectious Disease
DX: E11.40 Type 2 diabetes mellitus with diabetic neuropathy, unspecified (principal); E11.65 Type 2 diabetes mellitus with hyperglycemia; I87.332 Chronic venous hypertension (idiopathic) with ulcer and inflammation of left lower extremity; I87.331 Chronic venous hypertension (idiopathic) with ulcer and inflammation of right lower extremity; L97.821 Non-pressure chronic ulcer of other part of left lower leg limited to breakdown of skin; L97.811 Non-pressure chronic ulcer of other part of right lower leg limited to breakdown of skin; L03.116 Cellulitis of left lower limb; L03.115 Cellulitis of right lower limb; I89.0 Lymphedema, not elsewhere classified; I87.2 Venous insufficiency (chronic) (peripheral); R60.0 Localized edema; I79.8 Other disorders of arteries, arterioles and capillaries in diseases classified elsewhere; D62 Acute posthemorrhagic anemia; K92.2 Gastrointestinal hemorrhage, unspecified; G90.09 Other idiopathic peripheral autonomic neuropathy; I48.21 Permanent atrial fibrillation; I50.9 Heart failure, unspecified; J44.9 Chronic obstructive pulmonary disease, unspecified
CPT/HCPCS: 87071; 87075; 87186; 87205

== ENCOUNTER → 2020-10-04 | Outpatient (CLI) | payer MEDICARE, OTHER ==
[~2020-10-04] MED LIST changes: -COLLAGENASE OINTMENT 30 GM TUBE ONE; -FLUOCINONIDE 0.05% 1 EA/15 GM TUBE ONE; +IOPAMIDOL 370 MG/ML 200 ML INFUS..BTL INJ ONE; -MINERAL OIL/PETROLAT/GLYCERI 6OZ BTL ONE; +SODIUM CHLORIDE 0.9% 50ML 50 ML ONE
[2020-10-04 16:40] LABS: BLOOD UREA NITROGEN 18 mg/dL (7-26); BUN/CREATININE RATIO 22 (6-25); CREATININE, SERUM 0.83 mg/dL (0.72-1.25); EST GLOMERULAR FILTRATION RATE > 60 ML/MIN (60-)
== END ==
LOC: CT 15:47
PROVIDERS: ATTEND Internal Medicine Gastroenterology
DX: K42.0 Umbilical hernia with obstruction, without gangrene (principal); K59.01 Slow transit constipation; K43.6 Other and unspecified ventral hernia with obstruction, without gangrene
CPT/HCPCS: 36415; 74177; 82565; 84520; Q9967

== ENCOUNTER → 2021-06-07 | Outpatient (CLI) | payer MEDICARE, OTHER ==
[~2021-06-07] MED LIST changes: -IOPAMIDOL 370 MG/ML 200 ML INFUS..BTL INJ ONE; -SODIUM CHLORIDE 0.9% 50ML 50 ML ONE
== END ==
LOC: RAD 15:47
PROVIDERS: ATTEND Internal Medicine
DX: M51.26 Other intervertebral disc displacement, lumbar region (principal); M47.812 Spondylosis without myelopathy or radiculopathy, cervical region
CPT/HCPCS: 72050; 72110